=== PATIENT | male | born 1950 | race African-American/Black ===

== ENCOUNTER 2018-10-28 16:16 | Inpatient (IN) | payer MEDICARE ==
[~2018-10-28] VITALS: Ht 185.4 cm; Wt 91.3 kg
[2018-10-28 17:02] LABS: ALBUMIN 3.5 g/dL (3.4-5.0); CALCIUM 8.5 mg/dL (8.5-10.1); CREATININE 1.3 mg/dL (0.7-1.3); GFR 66.4; MAGNESIUM 2.2 mg/dL (1.8-2.4); POTASSIUM 4.2 mmol/L (3.5-5.1); TOTAL BILIRUBIN 0.2 mg/dL (0.2-1.0); TOTAL PROTEIN 7.1 g/dL (6.4-8.2)
[2018-10-28 17:15] LABS: BASO % 1 % (0-3); EOS # 0.3 x10^3/uL (0.0-0.7); EOS % 7 % (0-3); HEMATOCRIT 38.3 % (39.0-53.0); HEMOGLOBIN 13.2 g/dL (13.0-17.5); LYMPH # 1.4 x10^3/uL (1.0-4.8); LYMPH % 28 % (24-48); MEAN CORPUSCULAR HEMOGLOBIN 31 pg (25-35); MEAN CORPUSCULAR HGB CONC 35 g/dL (31-37); MEAN CORPUSCULAR VOLUME 91 fL (79-100); MONO # 0.5 x10^3/uL (0.0-1.1); MONO % 9 % (0-9); NEUT # 2.8 x10^3uL (1.8-7.7); NEUT % 56 % (31-73); PLATELET COUNT 255 x10^3/uL (140-400); RED BLOOD COUNT 4.21 x10^6/uL (4.30-5.70); RED CELL DISTRIBUTION WIDTH 12.9 % (11.5-14.5); WHITE BLOOD COUNT 5.1 x10^3/uL (4.0-11.0)
--- NOTE | 2018-10-28 17:29 | PHYS DOC ---
Past History Past Medical History: Anxiety, Dementia, Diabetes, Hypertension Past Surgical History: Other Alcohol Use: None Drug Use: None Adult General Chief Complaint Chief Complaint: PSYCH EVALUATION [facility] HPI Patient is a 68 year old male who brought in by his from his home for medical clearance for psychiatric admission. Patient has history of dementia and had progressive insomnia and behavioral problem and hallucination. Patient already accepted by psychiatric physician and needs medical clearance. Patient is alert and oriented 1 and cooperative without acute distress and denies any problem. Patient denies suicidal and homicidal ideation and hallucination. Review of Systems Review of Systems Constitutional: Denies fever or chills [] Eyes: Denies change in visual acuity, redness, or eye pain [] HENT: Denies nasal congestion or sore throat [] Respiratory: Denies cough or shortness of breath [] Cardiovascular: No additional information not addressed in HPI [] GI: Denies abdominal pain, nausea, vomiting, bloody stools or diarrhea [] : Denies dysuria or hematuria [] Musculoskeletal: Denies back pain or joint pain [] Integument: Denies rash or skin lesions [] Neurologic: Denies headache, focal weakness or sensory changes [] Endocrine: Denies polyuria or polydipsia [] All other systems were reviewed and found to be within normal limits, except as documented in this note. Allergies Allergies Allergies Coded Allergies Type Severity Reaction Last Updated Verified codeine Allergy Intermediate 10/28/18 Yes metformin Allergy Intermediate 10/28/18 Yes Physical Exam Physical Exam Constitutional: Well nourished, no acute distress, non-toxic appearance. [] HENT: Normocephalic, atraumatic. Eyes: PERRLA, EOMI, conjunctiva normal, no discharge. [] Neck: Normal range of motion, no tenderness, supple, no stridor. [] Cardiovascular:Heart rate regular rhythm, no murmur [] Lungs & Thorax: Bilateral breath sounds clear to auscultation [] Abdomen: Bowel sounds normal, soft, no tenderness, no masses, no pulsatile masses. [] Skin: Warm, dry, no erythema, no rash. [] Back: No tenderness, no CVA tenderness. [] Extremities: No tenderness, no cyanosis, no clubbing, ROM intact, no edema. [] Neurologic: Alert and oriented X 1, normal motor function, normal sensory function, no focal deficits noted. [] Psychologic: Affect normal, mood normal. [] Current Patient Data Vital Signs Vital Signs Date Time Temp Pulse Resp B/P (MAP) Pulse Ox O2 Delivery O2 Flow Rate FiO2 10/28/18 16:34 97.8 59 22 99 Room Air Lab Results Laboratory Tests Test 10/28/18 16:36 10/28/18 17:05 Sodium Level 144 mmol/L (136-145) Potassium Level 4.2 mmol/L (3.5-5.1) Chloride Level 106 mmol/L (98-107) Carbon Dioxide Level 33 mmol/L (21-32) H Anion Gap 5 (6-14) L Blood Urea Nitrogen 18 mg/dL (8-26) Creatinine 1.3 mg/dL (0.7-1.3) Estimated GFR (Cockcroft-Gault) 66.4 BUN/Creatinine Ratio 14 (6-20) Glucose Level 108 mg/dL (70-99) H Calcium Level 8.5 mg/dL (8.5-10.1) Magnesium Level 2.2 mg/dL (1.8-2.4) Total Bilirubin 0.2 mg/dL (0.2-1.0) Aspartate Amino Transferase (AST) 27 U/L (15-37) Alanine Aminotransferase (ALT) 28 U/L (16-63) Alkaline Phosphatase 88 U/L (46-116) Total Protein 7.1 g/dL (6.4-8.2) Albumin 3.5 g/dL (3.4-5.0) Albumin/Globulin Ratio 1.0 (1.0-1.7) White Blood Count 5.1 x10^3/uL (4.0-11.0) Red Blood Count 4.21 x10^6/uL (4.30-5.70) L Hemoglobin 13.2 g/dL (13.0-17.5) Hematocrit 38.3 % (39.0-53.0) L Mean Corpuscular Volume 91 fL (79-100) Mean Corpuscular Hemoglobin 31 pg (25-35) Mean Corpuscular Hemoglobin Concent 35 g/dL (31-37) Red Cell Distribution Width 12.9 % (11.5-14.5) Platelet Count 255 x10^3/uL (140-400) Neutrophils (%) (Auto) 56 % (31-73) Lymphocytes (%) (Auto) 28 % (24-48) Monocytes (%) (Auto) 9 % (0-9) Eosinophils (%) (Auto) 7 % (0-3) H Basophils (%) (Auto) 1 % (0-3) Neutrophils # (Auto) 2.8 x10^3uL (1.8-7.7) Lymphocytes # (Auto) 1.4 x10^3/uL (1.0-4.8) Monocytes # (Auto) 0.5 x10^3/uL (0.0-1.1) Eosinophils # (Auto) 0.3 x10^3/uL (0.0-0.7) Basophils # (Auto) 0.0 x10^3/uL (0.0-0.2) EKG EKG EKG interpreted by me. EKG at 1627 showed sinus bradycardia at rate of 53, left fourth axis, LVH, inverted T in lateral leads, poor R-wave progress in anteroseptal leads, no acute ST and T-wave abnormalities, Radiology/Procedures Radiology/Procedures [] Course & Med Decision Making Course & Med Decision Making Pertinent Labs reviewed. (See chart for details) Patient was medically cleared for psychiatric admission. Dragon Disclaimer Dragon Disclaimer This electronic medical record was generated, in whole or in part, using a voice recognition dictation system. Departure Departure: Impression: Primary Impression: Medical clearance for psychiatric admission Additional Impressions: Dementia Insomnia Behavioral problem Disposition: 09 ADMITTED INPATIENT (at 1725 to senior behavioral unit) Condition: STABLE Referrals: NON,STAFF (PCP) Problem Qualifiers ZHANG POWERS MD Oct 28, 2018 17:28
[2018-10-28 17:31] LABS: BILIRUBIN,URINE NEG (NEG); CLARITY,URINE CLEAR; COLOR,URINE YELLOW; GLUCOSE,URINE NEG (NEG)
[2018-10-28 17:32] LABS: BACTERIA,URINE 0 /HPF (0-FEW); NITRITE,URINE NEG (NEG); RBC,URINE 0 /HPF (0-2); SQUAMOUS EPITHELIAL CELL,UR OCC /LPF; UROBILINOGEN,URINE 0.2 mg/dL (0.2 mg/dL); WBC,URINE 0 /HPF (0-4)
[2018-10-28] MEDS ORDERED: amLODIPine BESYLATE 10 MG TABLET PO ONE (18:30)
[2018-10-28 18:36] VITALS: BP 226/99
[2018-10-28 18:38] VITALS: BP 242/107
[2018-10-28] MEDS ORDERED: ACETAMINOPHEN 325 MG TABLET PO PRN (19:45)
[2018-10-28] MEDS ORDERED: MAG HYDROX/AL HYDROX/SIMETH 30 ML ORAL.SUSP PO PRN (19:45)
[2018-10-28] MEDS ORDERED: MAGNESIUM HYDROXIDE 2,400 MG/30 ML ORAL.SUSP. PO PRN (19:45)
[2018-10-28] MEDS ORDERED: METHYL SALICYLATE/MENTHOL TOPICAL OINTMENT 29GM TUBE. TP PRN (19:45)
[2018-10-28] MEDS ORDERED: SERT100T PO (20:59)
[2018-10-28] MEDS ORDERED: OLAN2.5T11 PO (20:59)
[2018-10-28] MEDS ORDERED: [UNRECOGNIZED DRUG - CODE] PO (20:59)
[2018-10-28] MEDS ORDERED: MEMA10TA PO (20:59)
[2018-10-28] MEDS ORDERED: ASPI-630 PO (20:59)
[2018-10-28] MEDS ORDERED: GLIM1TAB2 PO (20:59)
[2018-10-28] MEDS ORDERED: DOCU100C28 PO (20:59)
[2018-10-28] MEDS ORDERED: TRIA15CR50 TP (20:59)
[2018-10-28] MEDS ORDERED: LOSA100T2 PO (20:59)
[2018-10-28] MEDS ORDERED: MELA3TAB2 PO (20:59)
[2018-10-28] MEDS ORDERED: MELATONIN 3 MG TABLET PO SCH (21:30)
[2018-10-28] MEDS ORDERED: TRIAMCINOLONE ACETONIDE 0.1% TOPICAL CREAM 15GM TUBE. TP SCH (21:30)
[2018-10-28] MEDS ORDERED: DOCUSATE SODIUM 100 MG CAPSULE PO SCH (21:30)
[2018-10-28] MEDS ORDERED: MEMANTINE 10 MG TABLET. PO SCH (21:30)
[2018-10-28] MEDS ORDERED: OLANZapine 2.5 MG TABLET PO SCH (21:30)
--- NOTE | 2018-10-28 23:00 | PDOC ---
Exam Note: Alvin Note: Please also refer to the separate dictated note~for this date of service dictated separately.~Patient seen individually. Discussed the patient with Nursing staff reviewed the chart.~Reviewed interim history and current functioning. Reviewed vital signs,~Labs/ Radiology~and current medications noted below. Continue current treatment with the changes noted in the dictated addendum note Assessment: Vital Signs: Vital Signs Date Time Temp Pulse Resp B/P (MAP) Pulse Ox O2 Delivery O2 Flow Rate FiO2 10/28/18 18:38 48 242/107 (152) 10/28/18 18:36 97.9 18 97 10/28/18 16:34 Room Air Labs: Laboratory Tests Test 10/28/18 16:36 10/28/18 17:05 Sodium Level 144 mmol/L (136-145) Potassium Level 4.2 mmol/L (3.5-5.1) Chloride Level 106 mmol/L (98-107) Carbon Dioxide Level 33 mmol/L (21-32) H Anion Gap 5 (6-14) L Blood Urea Nitrogen 18 mg/dL (8-26) Creatinine 1.3 mg/dL (0.7-1.3) Estimated GFR (Cockcroft-Gault) 66.4 BUN/Creatinine Ratio 14 (6-20) Glucose Level 108 mg/dL (70-99) H Calcium Level 8.5 mg/dL (8.5-10.1) Magnesium Level 2.2 mg/dL (1.8-2.4) Total Bilirubin 0.2 mg/dL (0.2-1.0) Aspartate Amino Transferase (AST) 27 U/L (15-37) Alanine Aminotransferase (ALT) 28 U/L (16-63) Alkaline Phosphatase 88 U/L (46-116) Total Protein 7.1 g/dL (6.4-8.2) Albumin 3.5 g/dL (3.4-5.0) Albumin/Globulin Ratio 1.0 (1.0-1.7) White Blood Count 5.1 x10^3/uL (4.0-11.0) Red Blood Count 4.21 x10^6/uL (4.30-5.70) L Hemoglobin 13.2 g/dL (13.0-17.5) Hematocrit 38.3 % (39.0-53.0) L Mean Corpuscular Volume 91 fL (79-100) Mean Corpuscular Hemoglobin 31 pg (25-35) Mean Corpuscular Hemoglobin Concent 35 g/dL (31-37) Red Cell Distribution Width 12.9 % (11.5-14.5) Platelet Count 255 x10^3/uL (140-400) Neutrophils (%) (Auto) 56 % (31-73) Lymphocytes (%) (Auto) 28 % (24-48) Monocytes (%) (Auto) 9 % (0-9) Eosinophils (%) (Auto) 7 % (0-3) H Basophils (%) (Auto) 1 % (0-3) Neutrophils # (Auto) 2.8 x10^3uL (1.8-7.7) Lymphocytes # (Auto) 1.4 x10^3/uL (1.0-4.8) Monocytes # (Auto) 0.5 x10^3/uL (0.0-1.1) Eosinophils # (Auto) 0.3 x10^3/uL (0.0-0.7) Basophils # (Auto) 0.0 x10^3/uL (0.0-0.2) Urine Collection Type Unknown Urine Color Yellow Urine Clarity Clear Urine pH 7.0 Urine Specific Clay 1.020 Urine Protein Neg (NEG-TRACE) Urine Glucose (UA) Neg mg/dL (NEG) Urine Ketones (Stick) Neg mg/dL (NEG) Urine Blood Neg (NEG) Urine Nitrite Neg (NEG) Urine Bilirubin Neg (NEG) Urine Urobilinogen Dipstick 0.2 mg/dL (0.2 mg/dL) Urine Leukocyte Esterase Neg (NEG) Urine RBC 0 /HPF (0-2) Urine WBC 0 /HPF (0-4) Urine Squamous Epithelial Cells Occ /LPF Urine Bacteria 0 /HPF (0-FEW) Current Medications: Meds: Current Medications Amlodipine Besylate (Norvasc) 10 mg 1X ONCE PO Last administered on 10/28/18at 18:30; Start 10/28/18 at 18:30; Stop 10/28/18 at 18:31; Status DC Acetaminophen (Tylenol) 650 mg PRN Q6HRS PRN PO PAIN / TEMP; Start 10/28/18 at 19:45; Stop 10/28/18 at 22:43; Status DC Multi-Ingredient Ointment (Analgesic [place]) 1 karey PRN QID PRN TP MUSCLE PAIN; Start 10/28/18 at 19:45; Stop 10/28/18 at 22:43; Status DC Al Hydroxide/Mg Hydroxide (Mylanta Plus Xs) 15 ml PRN AFTMEALHC PRN PO DYSPEPSIA; Start 10/28/18 at 19:45; Stop 10/28/18 at 22:43; Status DC Magnesium Hydroxide (Milk Of Magnesia) 2,400 mg PRN QHS PRN PO CONSTIPATION; Start 10/28/18 at 19:45; Stop 10/28/18 at 22:43; Status DC Aspirin (Children'S Aspirin) 81 mg DAILY PO ; Start 10/29/18 at 09:00; Stop at 09:00; Status DC Docusate Sodium (Colace) 100 mg BID PO ; Start 10/28/18 at 21:30; Stop 10/28/18 at 22:43; Status DC Glimepiride (Amaryl) 1 mg DAILY PO ; Start 10/29/18 at 09:00; Stop 10/29/18 at 09:00; Status DC Losartan Potassium (Cozaar) 100 mg DAILY PO ; Start 10/29/18 at 09:00; Stop at 09:00; Status DC Non-Formulary Medication (Pedi M.vit No.17 With Fluoride (Multivit-Fluor 0.5 Mg Tab Chw)) 0.5 mg DAILY PO ; Start 10/29/18 at 09:00; Stop 10/29/18 at 09:00; Status DC Triamcinolone Acetonide (Kenalog) 1 karey BID TP ; Start 10/28/18 at 21:30; Stop 10/28/18 at 22:43; Status DC Sertraline HCl (Zoloft) 100 mg DAILY PO ; Start 10/29/18 at 09:00; Stop at 09:00; Status DC Melatonin 9 mg QHS PO ; Start 10/28/18 at 21:30; Stop 10/28/18 at 22:43; Status DC Memantine (Namenda) 10 mg BID PO ; Start 10/28/18 at 21:30; Stop 10/28/18 at 22: 43; Status DC Olanzapine (ZyPREXA) 2.5 mg QHS PO ; Start 10/28/18 at 21:30; Stop 10/28/18 at 22:43; Status DC Active Scripts Active Reported Triamcinolone Acetonide 15 Gm Cream..g. 1 Karey TP BID Zoloft (Sertraline Hcl) 100 Mg Tablet 100 Mg PO DAILY Olanzapine 2.5 Mg Tablet 2.5 Mg PO QHS Multivit-Fluor 0.5 Mg Tab Chw (Pedi M.vit No.17 With Fluoride) 0.5 Mg Tab.chew 0.5 Mg PO DAILY Namenda (Memantine Hcl) 10 Mg Tablet 10 Mg PO BID Melatonin 3 Mg Tablet 9 Mg PO QHS Cozaar (Losartan Potassium) 100 Mg Tablet 100 Mg PO DAILY Glimepiride 1 Mg Tablet 1 Mg PO DAILY Docusate Sodium 100 Mg Capsule 100 Mg PO BID Aspirin 81 Mg Tab.chew 81 Mg PO DAILY I have reviewed the current psychotropics carefully including drug interactions. Risk benefit ratio favors no change other than as noted in my dictated progress note. ALISHA MICHAELS MD Oct 28, 2018 23:00
[2018-10-29] MEDS ORDERED: GLIMEPIRIDE 2 MG TABLET PO SCH (09:00)
[2018-10-29] MEDS ORDERED: [UNRECOGNIZED DRUG - MIXTURE] PO SCH (09:00)
[2018-10-29] MEDS ORDERED: ASPIRIN 81 MG TAB.CHEW PO SCH (09:00)
[2018-10-29] MEDS ORDERED: LOSARTAN 50 MG TABLET. PO SCH (09:00)
[2018-10-29] MEDS ORDERED: SERTRALINE 100 MG TABLET. PO SCH (09:00)
[2018-10-29 13:59] LABS: THYROID STIM HORMONE (TSH) 1.024 uIU/mL (0.358-3.740)
--- NOTE | 2018-10-29 15:57 | EKG ---
[address] [address] Test Date: 2018-10-28 Test Time: 16:27:26 Pat Name: LETY TINSLEY Department: Room: Gender: M [employer] Manager: KAYA : 1950 Requested By: ZHANG POWERS Order Number: [id number] Reading MD: Measurements Intervals Jelm Rate: 53 P: -26 TX: 170 QRS: -24 QRSD: 86 T: 115 QT: 436 QTc: 411 Interpretive Statements SINUS RHYTHM LEFTWARD AXIS R-S TRANSITION ZONE IN V LEADS DISPLACED TO THE LEFT CONSIDER LEFT VENTRICULAR HYPERTROPHY QRS(T) CONTOUR ABNORMALITY CONSIDER ANTEROSEPTAL MYOCARDIAL DAMAGE T ABNORMALITY IN ANTEROLATERAL LEADS ABNORMAL ECG RI6.01 No previous ECG available for comparison
[2018-10-29 17:14] LABS: THYROXINE 4.5 ug/dL (4.5-12.0)
[2018-10-29 19:09] LABS: HEMOGLOBIN A1C 6.6 % (4.8-5.6)
== END 2018-10-28 22:43 | disposition short-term general hospital (02) | DRG 57 ==
LOC: ER 16:16 → GEROPSY 18:10
PROVIDERS: ADMIT Psychiatry & Neurology Psychiatry; ATTEND Psychiatry & Neurology Psychiatry
DX: G31.09 Other frontotemporal neurocognitive disorder (principal); F02.81 Dementia in other diseases classified elsewhere, unspecified severity, with behavioral disturbance; G47.00 Insomnia, unspecified; E11.9 Type 2 diabetes mellitus without complications; I10 Essential (primary) hypertension; F32.9 Major depressive disorder, single episode, unspecified; F41.9 Anxiety disorder, unspecified; F63.9 Impulse disorder, unspecified
CPT/HCPCS: 36415; 80053; 80061; 81001; 82306; 83036; 83540; 83550; 83735; 84436; 84443; 84480; 85025; 86592; 93005; 99285-25

== ENCOUNTER 2018-10-28 23:20 | Inpatient (IN) | payer MEDICARE ==
[2018-10-27 20:20] VITALS: BP 171/97
[~2018-10-28] VITALS: Ht 185.4 cm; Wt 86.2 kg
[2018-10-28 23:20] VITALS: BP 177/82
[~2018-10-28 23:20] MED LIST: ASPI-630 PO; DOCU100C28 PO; GLIM1TAB2 PO; LOSA100T2 PO; MELA3TAB2 PO; MEMA10TA PO; OLAN2.5T11 PO; SERT100T PO; TRIA15CR50 TP; [UNRECOGNIZED DRUG - CODE] PO
[2018-10-28 23:35] VITALS: BP 192/133
[2018-10-28 23:50] VITALS: BP 185/88
[2018-10-29] VITALS (26 sets, daily range): BP systolic 122–188; BP diastolic 60–97
[2018-10-29] MEDS ORDERED: METHYL SALICYLATE/MENTHOL TOPICAL OINTMENT 29GM TUBE. TP PRN (00:15)
[2018-10-29] MEDS ORDERED: MELATONIN 3 MG TABLET PO PRN (00:15)
[2018-10-29] MEDS ORDERED: ACETAMINOPHEN 325 MG TABLET PO PRN (00:15)
[2018-10-29] MEDS ORDERED: MAG HYDROX/AL HYDROX/SIMETH 30 ML ORAL.SUSP PO PRN (00:15)
[2018-10-29] MEDS ORDERED: MAGNESIUM HYDROXIDE 2,400 MG/30 ML ORAL.SUSP. PO PRN (00:15)
[2018-10-29] MEDS: OLANZapine 2.5 MG TABLET PO SCH ×2 (00:46→20:36)
[2018-10-29] MEDS: MEMANTINE 10 MG TABLET. PO SCH ×3 (00:50→20:36)
[2018-10-29 06:26] LABS: BASO # 0.1 x10^3/uL (0.0-0.2); BASO % 1 % (0-3); EOS # 0.2 x10^3/uL (0.0-0.7); EOS % 4 % (0-3); HEMATOCRIT 39.8 % (39.0-53.0); HEMOGLOBIN 13.5 g/dL (13.0-17.5); LYMPH # 1.3 x10^3/uL (1.0-4.8); LYMPH % 21 % (24-48); MEAN CORPUSCULAR HEMOGLOBIN 31 pg (25-35); MEAN CORPUSCULAR HGB CONC 34 g/dL (31-37); MEAN CORPUSCULAR VOLUME 90 fL (79-100); MONO # 0.5 x10^3/uL (0.0-1.1); MONO % 8 % (0-9); NEUT # 4.3 x10^3uL (1.8-7.7); NEUT % 66 % (31-73); PLATELET COUNT 267 x10^3/uL (140-400); RED CELL DISTRIBUTION WIDTH 12.9 % (11.5-14.5); WHITE BLOOD COUNT 6.5 x10^3/uL (4.0-11.0)
[2018-10-29 06:34] LABS: ALBUMIN 3.7 g/dL (3.4-5.0); CREATININE 1.2 mg/dL (0.7-1.3); GFR 72.9; MAGNESIUM 2.1 mg/dL (1.8-2.4); POTASSIUM 3.9 mmol/L (3.5-5.1); TOTAL BILIRUBIN 0.4 mg/dL (0.2-1.0); TOTAL PROTEIN 7.5 g/dL (6.4-8.2)
[2018-10-29] MEDS ORDERED: hydrALAZINE 20 MG/ML VIAL. IV PRN (09:30)
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
[2018-10-29] MEDS: ASPIRIN 81 MG TAB.CHEW PO SCH (09:57)
[2018-10-29] MEDS: SERTRALINE 100 MG TABLET. PO SCH (09:57)
[2018-10-29] MEDS: DOCUSATE SODIUM 100 MG CAPSULE PO SCH ×2 (09:57→20:35)
[2018-10-29] MEDS: GLIMEPIRIDE 2 MG TABLET PO SCH (09:57)
[2018-10-29] MEDS: LOSARTAN 50 MG TABLET. PO SCH (09:57)
[2018-10-29] MEDS: TRIAMCINOLONE ACETONIDE 0.1% TOPICAL CREAM 15GM TUBE. TP SCH ×2 (09:58→20:36)
--- NOTE | 2018-10-29 11:04 | RAD ---
CT HEAD WO CONTRAST History: Mental status change Comparison: None. Technique: Noncontrast CT imaging was performed of the head. Exposure: One or more of the following individualized dose reduction techniques were utilized for this examination: 1. Automated exposure control 2. Adjustment of the mA and/or kV according to patient size 3. Use of iterative reconstruction technique. Findings: There is some motion. No acute extra-axial or parenchymal hemorrhage is identified. There is no significant intra-axial mass effect, midline shift, or extra-axial fluid collection. The portillo-white differentiation of the major vascular territories is preserved. Ventricular size is within normal limits. Cerebral volume can be considered within normal limits. There is [id number] patchy ill-defined low-density of the supratentorial parenchyma bilaterally. The mastoid air cells and the visualized paranasal sinuses are aerated. No acute calvarial abnormality is identified. Impression: 1. No acute intracranial abnormality is identified. Patchy ill-defined low-density of the supratentorial parenchyma bilaterally is nonspecific, may be due to chronic microvascular ischemic disease. Electronically signed by: Dre Mart MD (10/29/2018 10:59 AM) [id number]
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
[2018-10-29] MEDS ORDERED: ADENOSINE 6 MG/2 ML VIAL IV ONE (12:12)
--- NOTE | 2018-10-29 12:35 | RAD ---
Chest, 2 views, 10/29/2018: HISTORY: Hypertension The heart size is normal. No pulmonary infiltrate is seen. There is no evidence of pleural fluid. Moderate hypertrophic spurring is present in the spine. IMPRESSION: No acute cardiopulmonary abnormality is detected. Electronically signed by: Guille Zamorano MD (10/29/2018 12:30 PM) [facility]
--- NOTE | 2018-10-29 18:30 | PDOC ---
Exam Note: Alvin Note: Please also refer to the separate dictated note~for this date of service dictated separately.~Patient seen individually. Discussed the patient with Nursing staff reviewed the chart.~Reviewed interim history and current functioning. Reviewed vital signs,~Labs/ Radiology~and current medications noted below. Continue current treatment with the changes noted in the dictated addendum note Assessment: Vital Signs: Vital Signs Date Time Temp Pulse Resp B/P (MAP) Pulse Ox O2 Delivery O2 Flow Rate FiO2 10/29/18 15:47 55 14 132/76 (94) 98 Room Air 10/29/18 06:05 97.0 I&O Intake and Output 10/29/18 07:01 Intake Total 200 ml Output Total 1200 ml Balance -1000 ml Intake Oral 200 ml Output Urine Total 1200 ml Labs: Laboratory Tests Test 10/29/18 00:30 10/29/18 05:45 10/29/18 10:31 10/29/18 11:31 Nasal Screen MRSA (PCR) Negative (Negative) White Blood Count 6.5 x10^3/uL (4.0-11.0) Red Blood Count 4.40 x10^6/uL (4.30-5.70) Hemoglobin 13.5 g/dL (13.0-17.5) Hematocrit 39.8 % (39.0-53.0) Mean Corpuscular Volume 90 fL (79-100) Mean Corpuscular Hemoglobin 31 pg (25-35) Mean Corpuscular Hemoglobin Concent 34 g/dL (31-37) Red Cell Distribution Width 12.9 % (11.5-14.5) Platelet Count 267 x10^3/uL (140-400) Neutrophils (%) (Auto) 66 % (31-73) Lymphocytes (%) (Auto) 21 % (24-48) L Monocytes (%) (Auto) 8 % (0-9) Eosinophils (%) (Auto) 4 % (0-3) H Basophils (%) (Auto) 1 % (0-3) Neutrophils # (Auto) 4.3 x10^3uL (1.8-7.7) Lymphocytes # (Auto) 1.3 x10^3/uL (1.0-4.8) Monocytes # (Auto) 0.5 x10^3/uL (0.0-1.1) Eosinophils # (Auto) 0.2 x10^3/uL (0.0-0.7) Basophils # (Auto) 0.1 x10^3/uL (0.0-0.2) Sodium Level 144 mmol/L (136-145) Potassium Level 3.9 mmol/L (3.5-5.1) Chloride Level 105 mmol/L (98-107) Carbon Dioxide Level 31 mmol/L (21-32) Anion Gap 8 (6-14) Blood Urea Nitrogen 14 mg/dL (8-26) Creatinine 1.2 mg/dL (0.7-1.3) Estimated GFR (Cockcroft-Gault) 72.9 BUN/Creatinine Ratio 12 (6-20) Glucose Level 105 mg/dL (70-99) H Calcium Level 9.0 mg/dL (8.5-10.1) Magnesium Level 2.1 mg/dL (1.8-2.4) Total Bilirubin 0.4 mg/dL (0.2-1.0) # Aspartate Amino Transferase (AST) 30 U/L (15-37) Alanine Aminotransferase (ALT) 32 U/L (16-63) Alkaline Phosphatase 74 U/L (46-116) Total Protein 7.5 g/dL (6.4-8.2) Albumin 3.7 g/dL (3.4-5.0) Albumin/Globulin Ratio 1.0 (1.0-1.7) D-Dimer (Tita) 0.44 mg/L (0.00-0.50) Vitamin B12 Level 632 pg/mL (232-1245) Current Medications: Meds: Current Medications Nicardipine HCl 50 mg/Sodium Chloride 270 ml @ 27 mls/hr CONT PRN IV SEE I/O RECORD Last administered on 10/29/18at 00:27; Start 10/29/18 at 00:00; Stop 10/29 at 15:54; Status DC Acetaminophen (Tylenol) 650 mg PRN Q6HRS PRN PO PAIN / TEMP; Start 10/29/18 at 00:15 Aspirin (Children'S Aspirin) 81 mg DAILYWBKFT PO Last administered on at 09:57; Start 10/29/18 at 08:00 Docusate Sodium (Colace) 100 mg BID PO Last administered on 10/29/18 09:57; Start 10/29/18 at 09:00 Glimepiride (Amaryl) 1 mg DAILY PO Last administered on 10/29/18 09:57; Start 10/29/18 at 09:00 Losartan Potassium (Cozaar) 100 mg DAILY PO Last administered on 10/29/18 09: 57; Start 10/29/18 at 09:00 Al Hydroxide/Mg Hydroxide (Mylanta Plus Xs) 30 ml PRN AFTMEALHC PRN PO DYSPEPSIA; Start 10/29/18 at 00:15 Magnesium Hydroxide (Milk Of Magnesia) 2,400 mg PRN QHS PRN PO CONSTIPATION; Start 10/29/18 at 00:15 Melatonin 3 mg PRN QHS PRN PO INSOMNIA Last administered on 10/29/18 00:46; Start 10/29/18 at 00:15; Stop 10/29/18 at 10:14; Status DC Memantine (Namenda) 10 mg BID PO Last administered on 10/29/18 09:57; Start at 00:30 Multi-Ingredient Ointment (Analgesic [place]) 1 karey PRN QID PRN TP MUSCLE PAIN; Start 10/29/18 at 00:15 Olanzapine (ZyPREXA) 2.5 mg HS PO Last administered on 10/29/18 00:46; Start 10/29/18 at 00:30 Sertraline HCl (Zoloft) 100 mg DAILY PO Last administered on 10/29/18 09:57; Start 10/29/18 at 09:00 Triamcinolone Acetonide (Kenalog) 1 karey BID TP Last administered on 10/29/18 09:58; Start 10/29/18 at 09:00 Nicardipine HCl (Cardene) 25 mg STK-MED ONCE IV ; Start 10/29/18 at 00:14; Stop 10/29/18 at 00:16; Status DC Hydralazine HCl (Apresoline) 10 mg PRN Q4HRS PRN IV ELEVATED BP, SEE COMMENTS; Start 10/29/18 at 09:30 Sertraline HCl (Zoloft) 100 mg DAILY PO ; Start 10/30/18 at 09:00; Status UNV Aspirin (Children'S Aspirin) 81 mg DAILYWBKFT PO ; Start 10/30/18 at 08:00; Status Cancel Non-Formulary Medication (Docusate Sodium ) 100 mg BID PO ; Start 10/29/18 at 21 :00; Status UNV Non-Formulary Medication (Glimepiride ) 1 mg DAILY PO ; Start 10/30/18 at 09:00 ; Status UNV Non-Formulary Medication (Losartan Potassium (Cozaar)) 100 mg DAILY PO ; Start 10/30/18 at 09:00; Status UNV Melatonin 9 mg QHS PO ; Start 10/29/18 at 21:00 Non-Formulary Medication (Memantine Hcl (Namenda)) 10 mg BID PO ; Start at 21:00; Status UNV Non-Formulary Medication (Olanzapine ) 2.5 mg QHS PO ; Start 10/29/18 at 21:00; Status UNV Multivitamins/ Calcium (Thera-M Plus) 1 tab DAILY PO ; Start 10/30/18 at 09:00 Non-Formulary Medication (Triamcinolone Acetonide ) 1 karey BID TP ; Start at 21:00; Status UNV Adenosine (Adenocard) 6 mg STK-MED ONCE IV ; Start 10/29/18 at 12:12; Stop 10/29 at 12:21; Status DC Active Scripts Active Reported Triamcinolone Acetonide 15 Gm Cream..g. 1 Karey TP BID Zoloft (Sertraline Hcl) 100 Mg Tablet 100 Mg PO DAILY Olanzapine 2.5 Mg Tablet 2.5 Mg PO QHS Multivit-Fluor 0.5 Mg Tab Chw (Pedi M.vit No.17 With Fluoride) 0.5 Mg Tab.chew 0.5 Mg PO DAILY Namenda (Memantine Hcl) 10 Mg Tablet 10 Mg PO BID Melatonin 3 Mg Tablet 9 Mg PO QHS Cozaar (Losartan Potassium) 100 Mg Tablet 100 Mg PO DAILY Glimepiride 1 Mg Tablet 1 Mg PO DAILY Docusate Sodium 100 Mg Capsule 100 Mg PO BID Aspirin 81 Mg Tab.chew 81 Mg PO DAILY I have reviewed the current psychotropics carefully including drug interactions. Risk benefit ratio favors no change other than as noted in my dictated progress note. Diagnosis: Problems: (1) Anxiety disorder (2) Frontotemporal dementia with behavioral disturbance (3) Impulse control disorder ALISHA MICHAELS MD Oct 29, 2018 18:30
--- NOTE | 2018-10-29 18:55 | HP ---
ADMIT DATE: 10/28/2018 PSYCHIATRIC ADMISSION HISTORY AND DISCHARGE SUMMARY I never had a chance to see the patient since he arrived from the Emergency Room and was on the unit approximately 1 hour, was found to be extremely hypertensive and transferred to the ICU per Dr. Mejia. IDENTIFYING DATA: The patient is a 68-year-old male referred to us from the [facility]. Dr. Hicks who called himself with this referral. HISTORY OF PRESENT ILLNESS: Reportedly, the patient has frontotemporal dementia, type 2 diabetes mellitus, hypertension, hyperlipidemia, and gout. He had been increasingly agitated, having active hallucinations, seeing people that were not there, wandering, confused, unable to focus and concentrate, paranoid, and anxious. Behaviors were deemed dangerous, unmanageable, had failed outpatient treatment with Dr. Hicks and we agreed to accept him on the [facility] for stabilization of his frontotemporal dementia with delusion, behavioral disturbance, and depression. He presented to the ER, was somewhat hypertensive, but then they stabilized the blood pressures, sent him up to us and soon thereafter blood pressure was elevated again and then he was transferred to the ICU. I never did get to see the patient as I indicated initially and I am not able to dictate a detailed mental status exam for this admission. Final diagnoses from the history presented by Dr. Hicks, the patient has a history of major neurocognitive disorder, frontotemporal with delusion, depression, behavioral disturbance; anxiety disorder, unspecified; impulse control disorder, unspecified; hypertension. Rest of the medical history can be gleaned from the notes by Dr. Mejia in the ICU. DISPOSITION: The patient was transferred to the ICU. MAN Kesha MICHAELS MD DR: MARIA GUADALUPE/steven JOB#: [id number] / [id number]
[2018-10-29] MEDS: hydrALAZINE 10 MG TABLET PO PRN (20:45)
[2018-10-29] MEDS ORDERED: MEMANTINE HCL 10 MG PO SCH (21:00)
[2018-10-29] MEDS ORDERED: DOCUSATE SODIUM 100 MG PO SCH (21:00)
[2018-10-29] MEDS ORDERED: TRIAMCINOLONE ACETONIDE TP SCH (21:00)
[2018-10-29] MEDS ORDERED: OLANZAPINE 2.5 MG PO SCH (21:00)
[2018-10-29] MEDS ORDERED: MELATONIN 3 MG TABLET PO SCH (21:00)
[2018-10-30 01:38] LABS: BACTERIA,URINE FEW /HPF (0-FEW); BILIRUBIN,URINE NEG (NEG); CLARITY,URINE CLEAR; COLOR,URINE YELLOW; GLUCOSE,URINE NEG (NEG); NITRITE,URINE NEG (NEG); RBC,URINE 0 /HPF (0-2); SQUAMOUS EPITHELIAL CELL,UR OCC /LPF; UROBILINOGEN,URINE 0.2 mg/dL (0.2 mg/dL); WBC,URINE OCC /HPF (0-4)
[2018-10-30 05:40] VITALS: BP 160/80
[2018-10-30] MEDS: hydrALAZINE 10 MG TABLET PO PRN ×2 (05:42→15:56)
[2018-10-30 06:42] LABS: BASO # 0.1 x10^3/uL (0.0-0.2); BASO % 1 % (0-3); EOS # 0.3 x10^3/uL (0.0-0.7); EOS % 7 % (0-3); HEMATOCRIT 40.8 % (39.0-53.0); HEMOGLOBIN 13.9 g/dL (13.0-17.5); LYMPH # 1.5 x10^3/uL (1.0-4.8); LYMPH % 36 % (24-48); MEAN CORPUSCULAR HEMOGLOBIN 31 pg (25-35); MEAN CORPUSCULAR HGB CONC 34 g/dL (31-37); MEAN CORPUSCULAR VOLUME 91 fL (79-100); MONO # 0.5 x10^3/uL (0.0-1.1); MONO % 11 % (0-9); NEUT # 1.9 x10^3uL (1.8-7.7); NEUT % 44 % (31-73); PLATELET COUNT 250 x10^3/uL (140-400); WHITE BLOOD COUNT 4.3 x10^3/uL (4.0-11.0)
[2018-10-30 08:00] VITALS: BP 150/84
[2018-10-30] MEDS ORDERED: ASPIRIN 81 MG TAB.CHEW PO SCH (08:00)
[2018-10-30] MEDS ORDERED: GLIMEPIRIDE 1 MG PO SCH (09:00)
[2018-10-30] MEDS ORDERED: MULTIVITAMIN with MINERAL TABLET. PO SCH (09:00)
[2018-10-30] MEDS ORDERED: SERTRALINE 100 MG TABLET. PO SCH (09:00)
[2018-10-30] MEDS ORDERED: NON FORMULARY ITEM (Losartan Potassium (Cozaar) 100 MG) PO SCH (09:00)
[2018-10-30] MEDS: LOSARTAN 50 MG TABLET. PO SCH (09:39)
[2018-10-30] MEDS: TRIAMCINOLONE ACETONIDE 0.1% TOPICAL CREAM 15GM TUBE. TP SCH (09:40)
[2018-10-30] MEDS: SERTRALINE 100 MG TABLET. PO SCH (09:40)
[2018-10-30] MEDS: MEMANTINE 10 MG TABLET. PO SCH (09:40)
[2018-10-30] MEDS: ASPIRIN 81 MG TAB.CHEW PO SCH (09:40)
[2018-10-30] MEDS: DOCUSATE SODIUM 100 MG CAPSULE PO SCH (09:40)
[2018-10-30] MEDS: GLIMEPIRIDE 2 MG TABLET PO SCH (09:40)
[2018-10-30] MEDS ORDERED: HYDR-2867 PO (10:47)
--- NOTE | 2018-10-30 12:59 | DS ---
DATE OF DISCHARGE: 10/30/2018 HOSPITAL COURSE: The patient is a 68-year-old -Citizen Of [place] gentleman came in, was going to be admitted to the [facility], but apparently his blood pressure was about 240/110. He was taken down here to the ICU in hypertensive urgency. The patient placed on various antihypertensives and IV hydralazine. The patient made excellent progress. He was seen by studio operations engineer in charge, cleared by Cardiology and his blood pressure came down into the range of approximately 150/84, respiratory rate 18, pulse 50. He is afebrile. The patient is alert, at times has agitation. The patient otherwise made good progress during the rest of his hospitalization. No complication. DIET: He will be on a heart healthy diet. ACTIVITY: Decreased activity. MEDICATIONS: MRAD. DISPOSITION: Transferred to the [facility]. IMPRESSION: Hypertensive urgency, dementia, Alzheimer type, severe depression, agitation, bradycardia, chronic microvascular disease. The patient will be in [facility] for further rehabilitation and evaluation by those physicians. MARY ELLEN CHIU MD DR: MOHAN/steven JOB#: [id number] / [id number]
[2018-10-30 15:56] VITALS: BP 177/89
[2018-10-30] MEDS ORDERED: MAG355OR12 PO (18:02)
[2018-10-30] MEDS ORDERED: MAGN2400 PO (18:02)
[2018-10-30] MEDS ORDERED: ACET325T9 PO (18:02)
[2018-10-30] MEDS ORDERED: MENT113G6 TP (18:02)
[2018-10-30] MEDS ORDERED: MULT-460 PO (18:02)
--- NOTE | 2018-10-30 22:15 | PN ---
DATE: SUBJECTIVE: The patient is resting fairly comfortably. The patient has been moved out of the ICU for his hypertensive urgency. PHYSICAL EXAMINATION: VITAL SIGNS: His blood pressure 150/80, respiratory rate 18, pulse anywhere from 45-51, patient is afebrile. GENERAL: The patient is alert. LUNGS: Diminished, but clear. CARDIOVASCULAR: Regular sinus rhythm. ABDOMEN: Soft, nontender. The patient otherwise his labs are basically stable and continued to be monitored and adjusted on his medications, possible placement in the [facility] unit for his dementia, Alzheimer type. MARY ELLEN CHIU MD DR: MOHAN/steven JOB#: [id number] / [id number]
--- NOTE | 2018-10-31 03:02 | CONS ---
DATE OF CONSULTATION: 10/29/2018 PSYCHIATRIC CONSULTATION This late entry of 10/29/2018 covers elements not covered in my initial note of 10/29/2018. I met with the patient in the evening of 10/29/2018 on [facility], previously discussed with nursing staff several times as the patient was initially referred to us to the [facility] after Dr. Hicks, his primary care physician from [facility] called us himself requesting psychiatric hospitalization for his frontotemporal dementia with delusions, behavioral disturbance. He has been wandering, confused, unmanageable at home. He presented to the ER, was found to be somewhat hypertensive, but stabilized, came to the [facility] and very shortly thereafter was transferred to [facility] for medical stabilization on the medical/surgical floor as his blood pressure had elevated once again. He is now on the medical/surgical floor, [facility], room #125 and I have been asked to consult from a psychiatric standpoint to manage his ongoing marked impulsivity, confusion, agitation and attempting to walk away from the unit, oblivious of where he is. Discussed with nursing staff, reviewed the chart. CHIEF COMPLAINT: "I will see you later." The patient had his bags packed. He was walking out of his room. His nursing staff were trying to contain him. He is quite oblivious of his circumstances. HISTORY OF PRESENT ILLNESS: The patient has a history of frontotemporal dementia and has been living at home with family, followed at the [facility]. He has had marked insomnia, increased agitation, hallucination, seeing people that are not there, wandering, poor concentration, paranoia and anxiety. Symptoms have been worsening for about 2 months. He has been difficult to redirect. Psychotropics had been adjusted by Dr. Hicks with the increase of sertraline, addition of olanzapine and he had failed all of this. PAST PSYCHIATRIC HISTORY: No history of bipolar disorder. PAST MEDICAL HISTORY: Hypertension, frontotemporal dementia, type 2 diabetes mellitus, hyperlipidemia, and gout. ALLERGIES: CODEINE, METFORMIN. FAMILY HISTORY: Noncontributory. CURRENT PSYCHOTROPICS: Melatonin 10 mg at bedtime, Namenda 10 b.i.d., Zyprexa 2.5 mg at bedtime, and Zoloft 100 mg a day. SOCIAL HISTORY: No alcohol or drug abuse history is noted. Not known to be a perpetrator. MENTAL STATUS EXAMINATION: The patient was seen individually evening of 10/29/2018 in room #125, [facility]. He is oriented to himself, pleasant, smiling, but has his bags packed, ready to walk out of the unit, oblivious of his surroundings. Insight, judgment, recent and remote memory, attention, concentration, fund of knowledge poor, consistent with his diagnosis. IMPRESSION: Major neurocognitive disorder, frontotemporal with delusion, depression, behavioral disturbance; anxiety disorder, unspecified; impulse control disorder, unspecified; hypertension. Rest unchanged from initial note. PLAN: From a psychiatric standpoint, we will maintain his current psychotropics and once he is medically stable, we will transfer him to the [facility]. Dr. Vyas/Dr. Mejia, thank you for the opportunity to participate in your patient's care. We will follow with you. MAN Kesha MICHAELS MD DR: MARIA GUADALUPE/nts JOB#: [id number] / [id number]
== END 2018-10-30 16:00 | DRG 305 ==
LOC: ICU 23:20 → 1 SOUTH 10-29 15:47
PROVIDERS: ADMIT Internal Medicine; ATTEND Internal Medicine
DX: I16.0 Hypertensive urgency (principal); F02.81 Dementia in other diseases classified elsewhere, unspecified severity, with behavioral disturbance; F01.51 Vascular dementia, unspecified severity, with behavioral disturbance; F63.9 Impulse disorder, unspecified; F32.9 Major depressive disorder, single episode, unspecified; E78.00 Pure hypercholesterolemia, unspecified; E11.9 Type 2 diabetes mellitus without complications; E78.5 Hyperlipidemia, unspecified; F41.9 Anxiety disorder, unspecified; G31.09 Other frontotemporal neurocognitive disorder; I10 Essential (primary) hypertension; M10.9 Gout, unspecified; Z66 Do not resuscitate; Z79.899 Other long term (current) drug therapy
CPT/HCPCS: 36415; 70450; 71046; 80053; 81001; 82607; 83735; 85025; 85379; 87641; J7050

== ENCOUNTER 2018-10-30 13:00 | Inpatient (IN) | payer MEDICARE ==
[~2018-10-30] VITALS: Ht 185.4 cm; Wt 90.9 kg
[~2018-10-30 13:00] MED LIST changes: +HYDR-2867 PO
[2018-10-30 16:56] VITALS: BP 179/95
[2018-10-30] MEDS ORDERED: ACETAMINOPHEN 325 MG TABLET PO PRN (18:00)
[2018-10-30] MEDS ORDERED: MAG HYDROX/AL HYDROX/SIMETH 30 ML ORAL.SUSP PO PRN (18:00)
[2018-10-30] MEDS ORDERED: MAG355OR12 PO (18:02)
[2018-10-30] MEDS ORDERED: MAGN2400 PO (18:02)
[2018-10-30] MEDS ORDERED: ACET325T9 PO (18:02)
[2018-10-30] MEDS ORDERED: MENT113G6 TP (18:02)
[2018-10-30] MEDS ORDERED: MULT-460 PO (18:02)
[2018-10-30] MEDS ORDERED: METHYL SALICYLATE/MENTHOL TOPICAL OINTMENT 29GM TUBE. TP PRN (18:45)
[2018-10-30] MEDS ORDERED: MAGNESIUM HYDROXIDE 2,400 MG/30 ML ORAL.SUSP. PO PRN (18:45)
[2018-10-30] MEDS: OLANZapine 2.5 MG TABLET PO SCH (20:03)
[2018-10-30] MEDS: DOCUSATE SODIUM 100 MG CAPSULE PO SCH (20:03)
[2018-10-30] MEDS: MEMANTINE 10 MG TABLET. PO SCH (20:03)
[2018-10-30] MEDS: MELATONIN 3 MG TABLET PO SCH (20:04)
--- NOTE | 2018-10-30 20:30 | HP ---
ADMIT DATE: 10/30/2018 This note covers elements not covered in my initial note of 10/30/2018. IDENTIFYING DATA: The patient is a 68-year-old -[place]aced[place] male who is admitted back to us from [address] [place] [address] medical surgical floor at [facility] after he was medically stabilized for his hypertension. He was transferred to [address] [place] [address] from our unit after he presented from the ER on the referral directly from Dr. Hicks, his primary care physician at the [facility]. Dr. Hicks had called us and on account of the patient's worsening mood lability, confusion secondary to frontotemporal dementia. He is unmanageable at the home. CHIEF COMPLAINT: "It's nice to see you again." The patient is pleasant, smiling, oblivious of who I was, but attempting to communicate as if he knew me well. I have seen him previously and he was briefly on the unit 2 days ago in the evening, but had to be transferred to the medical surgical floor for his hypertension. HISTORY OF PRESENT ILLNESS: The patient has a history of frontotemporal dementia with delusion, depression, behavioral disturbance. He has been at home. Behaviors have been unmanageable. He has had marked insomnia with worsening agitation, hallucinations, seeing people that are not there, wandering, confused, decreased concentration, paranoia and anxiety. No symptoms of bipolar disorder. PAST PSYCHIATRIC HISTORY: As above. CODE STATUS: DNR. ALLERGIES: CODEINE, METFORMIN. Accu-Cheks daily. Diet: Regular, ambulates ad orin. PAST MEDICAL HISTORY: Diabetes mellitus, hypertension, and hyperlipidemia, gout. CURRENT PSYCHOTROPICS: Melatonin 10 mg at bedtime, Namenda 10 b.i.d., Zyprexa 2.5 at bedtime, Zoloft 100 mg a day and we have gone ahead and added Zyprexa 2.5 mg q. 2 hours p.r.n. psychosis, agitation, max 10 mg in 24 hours. FAMILY HISTORY: Noncontributory. SOCIAL HISTORY: No history of alcohol, drug abuse, physical, sexual or elder abuse. Not known to be a perpetrator. REACTION TO HOSPITALIZATION: The patient oblivious of this. ASSETS: Supportive family. MENTAL STATUS EXAMINATION: The patient was seen individually evening of 10/30/2018. He is oriented to himself. Insight, judgment, recent and remote memory, attention, concentration, fund of knowledge poor, consistent with his diagnosis. IMPRESSION: Major neurocognitive disorder, frontotemporal with delusion, depression, behavioral disturbance; anxiety disorder, unspecified; impulse control disorder, unspecified; hypertension. Rest unchanged from above. PLAN: Admit to Geropsychiatry Unit at [facility]. I will see the patient daily individually from a psychiatric standpoint, medical followup with Dr. Vyas. Continue the patient on his current psychotropics. Consider adding Depakote as a mood stabilizer. We will monitor sleep. Add Remeron if needed for insomnia and that might help with anxiety, agitation as well. MAN Kesha MICHAELS MD DR: MARIA GUADALUPE/nts JOB#: [id number] / [id number]
[2018-10-30] MEDS: TRIAMCINOLONE ACETONIDE 0.1% TOPICAL CREAM 15GM TUBE. TP SCH (21:00)
--- NOTE | 2018-10-30 22:18 | PDOC ---
Exam Note: Alvin Note: Please also refer to the separate dictated note~for this date of service dictated separately.~Patient seen individually. Discussed the patient with Nursing staff reviewed the chart.~Reviewed interim history and current functioning. Reviewed vital signs,~Labs/ Radiology~and current medications noted below. Continue current treatment with the changes noted in the dictated addendum note Assessment: Vital Signs: Vital Signs Date Time Temp Pulse Resp B/P (MAP) Pulse Ox O2 Delivery O2 Flow Rate FiO2 10/30/18 16:56 98.2 63 20 179/95 (123) 97 Current Medications: Meds: Current Medications Olanzapine (ZyPREXA ZYDIS) 2.5 mg PRN Q2HR PRN PO PSYCHOSIS Last administered on 10/30/18at 17:48; Start 10/30/18 at 17:45 Acetaminophen (Tylenol) 650 mg PRN Q4HRS PRN PO PAIN / TEMP; Start 10/30/18 at 18:00 Al Hydroxide/Mg Hydroxide (Mylanta Plus Xs) 15 ml PRN AFTMEALHC PRN PO DYSPEPSIA; Start 10/30/18 at 18:00 Sertraline HCl (Zoloft) 100 mg DAILY PO ; Start 10/31/18 at 09:00 Aspirin (Children'S Aspirin) 81 mg DAILYWBKFT PO ; Start 10/31/18 at 08:00 Docusate Sodium (Colace) 100 mg BID PO Last administered on 10/30/18at 20:03; Start 10/30/18 at 21:00 Glimepiride (Amaryl) 1 mg DAILY08 PO ; Start 10/31/18 at 08:00 Hydralazine HCl (Apresoline) 10 mg PRN Q4HRS PRN PO HYPERTENSION SEE COMMENTS; Start 10/30/18 at 21:00 Losartan Potassium (Cozaar) 100 mg DAILY PO ; Start 10/31/18 at 09:00 Magnesium Hydroxide (Milk Of Magnesia) 2,400 mg PRN QHS PRN PO CONSTIPATION; Start 10/30/18 at 18:45 Melatonin 9 mg QHS PO Last administered on 10/30/18at 20:04; Start 10/30/18 at 21:00 Memantine (Namenda) 10 mg BID PO Last administered on 10/30/18at 20:03; Start at 21:00 Multi-Ingredient Ointment (Analgesic [place]) 1 karey PRN QID PRN TP MUSCLE PAIN; Start 10/30/18 at 18:45 Multivitamins/ Calcium (Thera-M Plus) 1 tab DAILY PO ; Start 10/31/18 at 09:00 Olanzapine (ZyPREXA) 2.5 mg QHS PO Last administered on 10/30/18at 20:03; Start 10/30/18 at 21:00 Non-Formulary Medication (Pedi M.vit No.17 With Fluoride (Multivit-Fluor 0.5 Mg Tab Chw)) 0.5 mg DAILY PO ; Start 10/31/18 at 09:00; Status UNV Triamcinolone Acetonide (Kenalog) 1 karey BID TP ; Start 10/30/18 at 21:00 Active Scripts Active Hydralazine Hcl 10 Mg Tablet 10 Mg PO PRN Q4HRS PRN 30 Days Reported Multiple Vitamin (Multivitamin With Minerals) 1 Each Tablet 1 Each PO DAILY Bengay (Menthol) 113 Gm Gel..gram. 1 Applic TP PRN QID PRN Milk Of Magnesia (Magnesium Hydroxide) 2,400 Mg/10 Ml Oral.susp 2,400 Mg PO PRN QHS PRN Maalox Maximum Strength Susp (Mag Hydrox/Al Hydrox/Simeth) 355 Ml Oral.susp 15 Ml PO PRN AFTMEALHC PRN Tylenol (Acetaminophen) 325 Mg Tablet 650 Mg PO PRN Q4HRS PRN Triamcinolone Acetonide 15 Gm Cream..g. 1 Karey TP BID Zoloft (Sertraline Hcl) 100 Mg Tablet 100 Mg PO DAILY Olanzapine 2.5 Mg Tablet 2.5 Mg PO QHS Multivit-Fluor 0.5 Mg Tab Chw (Pedi M.vit No.17 With Fluoride) 0.5 Mg Tab.chew 0.5 Mg PO DAILY Namenda (Memantine Hcl) 10 Mg Tablet 10 Mg PO BID Melatonin 3 Mg Tablet 9 Mg PO QHS Cozaar (Losartan Potassium) 100 Mg Tablet 100 Mg PO DAILY Glimepiride 1 Mg Tablet 1 Mg PO DAILY Docusate Sodium 100 Mg Capsule 100 Mg PO BID Aspirin 81 Mg Tab.chew 81 Mg PO DAILY I have reviewed the current psychotropics carefully including drug interactions. Risk benefit ratio favors no change other than as noted in my dictated progress note. Diagnosis: Problems: (1) Anxiety disorder (2) Impulse control disorder (3) Frontotemporal dementia with behavioral disturbance (4) Hypertensive urgency ALISHA MICHAELS MD Oct 30, 2018 22:18
[2018-10-31 05:57] VITALS: BP 157/78
[2018-10-31] MEDS: MULTIVITAMIN with MINERAL TABLET. PO SCH (07:47)
[2018-10-31] MEDS: LOSARTAN 50 MG TABLET. PO SCH (07:47)
[2018-10-31] MEDS: SERTRALINE 100 MG TABLET. PO SCH (07:47)
[2018-10-31] MEDS: MEMANTINE 10 MG TABLET. PO SCH ×2 (07:47→20:13)
[2018-10-31] MEDS: GLIMEPIRIDE 2 MG TABLET PO SCH (07:47)
[2018-10-31] MEDS: ASPIRIN 81 MG TAB.CHEW PO SCH (07:47)
[2018-10-31] MEDS: DOCUSATE SODIUM 100 MG CAPSULE PO SCH ×2 (07:47→20:13)
[2018-10-31] MEDS: TRIAMCINOLONE ACETONIDE 0.1% TOPICAL CREAM 15GM TUBE. TP SCH (07:48)
[2018-10-31] MEDS ORDERED: [UNRECOGNIZED DRUG - MIXTURE] PO SCH (09:00)
[2018-10-31] MEDS ORDERED: TRIAMCINOLONE ACETONIDE 0.1% TOPICAL CREAM 15GM TUBE. TP PRN (12:45)
[2018-10-31] MEDS: hydrALAZINE 10 MG TABLET PO PRN ×2 (15:35→20:15)
[2018-10-31 16:14] VITALS: BP 196/94
[2018-10-31 20:09] VITALS: BP 195/90
[2018-10-31] MEDS: OLANZapine 2.5 MG TABLET PO SCH (20:13)
[2018-10-31] MEDS: MELATONIN 3 MG TABLET PO SCH (20:13)
--- NOTE | 2018-10-31 22:58 | PDOC ---
Exam Note: Alvin Note: Please also refer to the separate dictated note~for this date of service dictated separately.~Patient seen individually. Discussed the patient with Nursing staff reviewed the chart.~Reviewed interim history and current functioning. Reviewed vital signs,~Labs/ Radiology~and current medications noted below. Continue current treatment with the changes noted in the dictated addendum note Assessment: Vital Signs: Vital Signs Date Time Temp Pulse Resp B/P (MAP) Pulse Ox O2 Delivery O2 Flow Rate FiO2 10/31/18 20:15 60 195/90 10/31/18 20:09 97.1 18 98 Room Air I&O Intake and Output 10/31/18 07:01 Intake Total 480 ml Balance 480 ml Intake Oral 480 ml Current Medications: Meds: Current Medications Olanzapine (ZyPREXA ZYDIS) 2.5 mg PRN Q2HR PRN PO PSYCHOSIS Last administered on 10/31/18at 15:35; Start 10/30/18 at 17:45 Acetaminophen (Tylenol) 650 mg PRN Q4HRS PRN PO PAIN / TEMP; Start 10/30/18 at 18:00 Al Hydroxide/Mg Hydroxide (Mylanta Plus Xs) 15 ml PRN AFTMEALHC PRN PO DYSPEPSIA; Start 10/30/18 at 18:00 Sertraline HCl (Zoloft) 100 mg DAILY PO Last administered on 10/31/18at 07:47; Start 10/31/18 at 09:00 Aspirin (Children'S Aspirin) 81 mg DAILYWBKFT PO Last administered on at 07:47; Start 10/31/18 at 08:00 Docusate Sodium (Colace) 100 mg BID PO Last administered on 10/31/18at 20:13; Start 10/30/18 at 21:00 Glimepiride (Amaryl) 1 mg DAILY08 PO Last administered on 10/31/18 07:47; Start 10/31/18 at 08:00 Hydralazine HCl (Apresoline) 10 mg PRN Q4HRS PRN PO HYPERTENSION SEE COMMENTS Last administered on 10/31/18 20:15; Start 10/30/18 at 21:00 Losartan Potassium (Cozaar) 100 mg DAILY PO Last administered on 10/31/18at 07: 47; Start 10/31/18 at 09:00 Magnesium Hydroxide (Milk Of Magnesia) 2,400 mg PRN QHS PRN PO CONSTIPATION; Start 10/30/18 at 18:45 Melatonin 9 mg QHS PO Last administered on 10/31/18at 20:13; Start 10/30/18 at 21:00 Memantine (Namenda) 10 mg BID PO Last administered on 10/31/18at 20:13; Start at 21:00 Multi-Ingredient Ointment (Analgesic [place]) 1 karey PRN QID PRN TP MUSCLE PAIN; Start 10/30/18 at 18:45 Multivitamins/ Calcium (Thera-M Plus) 1 tab DAILY PO Last administered on at 07:47; Start 10/31/18 at 09:00 Olanzapine (ZyPREXA) 2.5 mg QHS PO Last administered on 10/31/18at 20:13; Start 10/30/18 at 21:00 Non-Formulary Medication (Pedi M.vit No.17 With Fluoride (Multivit-Fluor 0.5 Mg Tab Chw)) 0.5 mg DAILY PO ; Start 10/31/18 at 09:00; Status UNV Triamcinolone Acetonide (Kenalog) 1 karey BID TP Last administered on 10/31/18at 07:48; Start 10/30/18 at 21:00; Stop 10/31/18 at 12:34; Status DC Triamcinolone Acetonide (Kenalog) 1 karey PRN BID PRN TP RASH; Start 10/31/18 at 12:45 Active Scripts Active Hydralazine Hcl 10 Mg Tablet 10 Mg PO PRN Q4HRS PRN 30 Days Reported Multiple Vitamin (Multivitamin With Minerals) 1 Each Tablet 1 Each PO DAILY Bengay (Menthol) 113 Gm Gel..gram. 1 Applic TP PRN QID PRN Milk Of Magnesia (Magnesium Hydroxide) 2,400 Mg/10 Ml Oral.susp 2,400 Mg PO PRN QHS PRN Maalox Maximum Strength Susp (Mag Hydrox/Al Hydrox/Simeth) 355 Ml Oral.susp 15 Ml PO PRN AFTMEALHC PRN Tylenol (Acetaminophen) 325 Mg Tablet 650 Mg PO PRN Q4HRS PRN Triamcinolone Acetonide 15 Gm Cream..g. 1 Karey TP BID Zoloft (Sertraline Hcl) 100 Mg Tablet 100 Mg PO DAILY Olanzapine 2.5 Mg Tablet 2.5 Mg PO QHS Multivit-Fluor 0.5 Mg Tab Chw (Pedi M.vit No.17 With Fluoride) 0.5 Mg Tab.chew 0.5 Mg PO DAILY Namenda (Memantine Hcl) 10 Mg Tablet 10 Mg PO BID Melatonin 3 Mg Tablet 9 Mg PO QHS Cozaar (Losartan Potassium) 100 Mg Tablet 100 Mg PO DAILY Glimepiride 1 Mg Tablet 1 Mg PO DAILY Docusate Sodium 100 Mg Capsule 100 Mg PO BID Aspirin 81 Mg Tab.chew 81 Mg PO DAILY I have reviewed the current psychotropics carefully including drug interactions. Risk benefit ratio favors no change other than as noted in my dictated progress note. Diagnosis: Problems: (1) Anxiety disorder (2) Impulse control disorder (3) Frontotemporal dementia with behavioral disturbance (4) Hypertensive urgency ALISHA MICHAELS MD Oct 31, 2018 22:58
[2018-11-01 06:14] VITALS: BP 213/84
[2018-11-01] MEDS: LOSARTAN 50 MG TABLET. PO SCH (06:25)
[2018-11-01] MEDS: hydrALAZINE 10 MG TABLET PO PRN (06:26)
[2018-11-01] MEDS: DOCUSATE SODIUM 100 MG CAPSULE PO SCH ×2 (07:44→19:47)
[2018-11-01] MEDS: SERTRALINE 100 MG TABLET. PO SCH (07:44)
[2018-11-01] MEDS: GLIMEPIRIDE 2 MG TABLET PO SCH (07:44)
[2018-11-01] MEDS: MULTIVITAMIN with MINERAL TABLET. PO SCH (07:44)
[2018-11-01] MEDS: ASPIRIN 81 MG TAB.CHEW PO SCH (07:45)
[2018-11-01] MEDS: MEMANTINE 10 MG TABLET. PO SCH ×2 (07:45→19:48)
[2018-11-01] MEDS ORDERED: hydrALAZINE 25 MG TABLET PO SCH (14:00)
[2018-11-01 15:45] VITALS: BP 204/84
[2018-11-01] MEDS: DIVALPROEX 125 MG CAP.SPRINK PO SCH (17:38)
[2018-11-01] MEDS: MELATONIN 3 MG TABLET PO SCH (19:47)
[2018-11-01] MEDS: OLANZapine 2.5 MG TABLET PO SCH (19:47)
--- NOTE | 2018-11-01 21:48 | PN ---
DATE: 10/31/2018 This is a late entry for 10/31/2018 covers elements not covered in my initial note. SUBJECTIVE: I met with the patient in the evening. The patient slept 6 hours previous evening. He appears cognitively intact, but is oriented just to himself. Blood pressure was elevated at 196/94. We will defer to Dr. Mejia. He received p.r.n. hydralazine. He is exit seeking, wandering, seems to look normal and staff will make added precautions to keep him from walking off the unit. REVIEW OF SYSTEMS: No CV, , pulmonary, eye, ENT system symptoms on review. Reliability poor. MENTAL STATUS EXAM: Oriented to himself. Insight, judgment, recent and remote memory, attention, concentration, fund of knowledge poor, consistent with his diagnosis. IMPRESSION: Major neurocognitive disorder, frontotemporal with delusion, depression, behavioral disturbance; anxiety disorder, unspecified; impulse control disorder, unspecified. Rest unchanged. PLAN: No change from initial note. May consider adding Depakote as a mood stabilizer, given his marked impulse control secondary to frontotemporal dementia. We will look at doing that on 11/01/2018. ALISHA MICHAELS MD DR: MARIA GUADALUPE/steven JOB#: [id number] / [id number]
--- NOTE | 2018-11-01 22:55 | PDOC ---
Exam Note: Alvin Note: Please also refer to the separate dictated note~for this date of service dictated separately.~Patient seen individually. Discussed the patient with Nursing staff reviewed the chart.~Reviewed interim history and current functioning. Reviewed vital signs,~Labs/ Radiology~and current medications noted below. Continue current treatment with the changes noted in the dictated addendum note Assessment: Vital Signs: Vital Signs Date Time Temp Pulse Resp B/P (MAP) Pulse Ox O2 Delivery O2 Flow Rate FiO2 11/01/18 19:49 74 204/84 11/01/18 15:45 98.7 16 98 10/31/18 20:09 Room Air I&O Intake and Output 11/01/18 07:01 Intake Total 1080 ml Balance 1080 ml Intake Oral 1080 ml # Voids 1 Current Medications: Meds: Current Medications Olanzapine (ZyPREXA ZYDIS) 2.5 mg PRN Q2HR PRN PO PSYCHOSIS Last administered on 10/31/18at 15:35; Start 10/30/18 at 17:45 Acetaminophen (Tylenol) 650 mg PRN Q4HRS PRN PO PAIN / TEMP; Start 10/30/18 at 18:00 Al Hydroxide/Mg Hydroxide (Mylanta Plus Xs) 15 ml PRN AFTMEALHC PRN PO DYSPEPSIA; Start 10/30/18 at 18:00 Sertraline HCl (Zoloft) 100 mg DAILY PO Last administered on 11/01/18at 07:44; Start 10/31/18 at 09:00 Aspirin (Children'S Aspirin) 81 mg DAILYWBKFT PO Last administered on at 07:45; Start 10/31/18 at 08:00 Docusate Sodium (Colace) 100 mg BID PO Last administered on 11/01/18at 19:47; Start 10/30/18 at 21:00 Glimepiride (Amaryl) 1 mg DAILY08 PO Last administered on 11/01/18at 07:44; Start 10/31/18 at 08:00 Hydralazine HCl (Apresoline) 10 mg PRN Q4HRS PRN PO HYPERTENSION SEE COMMENTS Last administered on 11/01/18at 06:26; Start 10/30/18 at 21:00; Stop 11/01/18 at 12:54; Status DC Losartan Potassium (Cozaar) 100 mg DAILY PO Last administered on 11/01/18 06: 25; Start 10/31/18 at 09:00 Magnesium Hydroxide (Milk Of Magnesia) 2,400 mg PRN QHS PRN PO CONSTIPATION; Start 10/30/18 at 18:45 Melatonin 9 mg QHS PO Last administered on 11/01/18at 19:47; Start 10/30/18 at 21:00 Memantine (Namenda) 10 mg BID PO Last administered on 11/01/18 19:48; Start at 21:00 Multi-Ingredient Ointment (Analgesic [place]) 1 karey PRN QID PRN TP MUSCLE PAIN; Start 10/30/18 at 18:45 Multivitamins/ Calcium (Thera-M Plus) 1 tab DAILY PO Last administered on 07:44; Start 10/31/18 at 09:00 Olanzapine (ZyPREXA) 2.5 mg QHS PO Last administered on 11/01/18 19:47; Start 10/30/18 at 21:00 Non-Formulary Medication (Pedi M.vit No.17 With Fluoride (Multivit-Fluor 0.5 Mg Tab Chw)) 0.5 mg DAILY PO ; Start 10/31/18 at 09:00; Status UNV Triamcinolone Acetonide (Kenalog) 1 karey BID TP Last administered on 10/31/18at 07:48; Start 10/30/18 at 21:00; Stop 10/31/18 at 12:34; Status DC Triamcinolone Acetonide (Kenalog) 1 karey PRN BID PRN TP RASH; Start 10/31/18 at 12:45 Hydralazine HCl (Apresoline) 25 mg Q8H PO Last administered on 11/01/18at 14:00 ; Start 11/01/18 at 14:00; Stop 11/01/18 at 17:21; Status DC Divalproex Sodium (Depakote Sprinkles) 125 mg 0900,1700 PO Last administered on 11/01/18 17:38; Start 11/01/18 at 17:00 Hydralazine HCl (Apresoline) 50 mg TID PO Last administered on 11/01/18 19:49 ; Start 11/01/18 at 21:00 Active Scripts Active Hydralazine Hcl 10 Mg Tablet 10 Mg PO PRN Q4HRS PRN 30 Days Reported Multiple Vitamin (Multivitamin With Minerals) 1 Each Tablet 1 Each PO DAILY Bengay (Menthol) 113 Gm Gel..gram. 1 Applic TP PRN QID PRN Milk Of Magnesia (Magnesium Hydroxide) 2,400 Mg/10 Ml Oral.susp 2,400 Mg PO PRN QHS PRN Maalox Maximum Strength Susp (Mag Hydrox/Al Hydrox/Simeth) 355 Ml Oral.susp 15 Ml PO PRN AFTMEALHC PRN Tylenol (Acetaminophen) 325 Mg Tablet 650 Mg PO PRN Q4HRS PRN Triamcinolone Acetonide 15 Gm Cream..g. 1 Karey TP BID Zoloft (Sertraline Hcl) 100 Mg Tablet 100 Mg PO DAILY Olanzapine 2.5 Mg Tablet 2.5 Mg PO QHS Multivit-Fluor 0.5 Mg Tab Chw (Pedi M.vit No.17 With Fluoride) 0.5 Mg Tab.chew 0.5 Mg PO DAILY Namenda (Memantine Hcl) 10 Mg Tablet 10 Mg PO BID Melatonin 3 Mg Tablet 9 Mg PO QHS Cozaar (Losartan Potassium) 100 Mg Tablet 100 Mg PO DAILY Glimepiride 1 Mg Tablet 1 Mg PO DAILY Docusate Sodium 100 Mg Capsule 100 Mg PO BID Aspirin 81 Mg Tab.chew 81 Mg PO DAILY I have reviewed the current psychotropics carefully including drug interactions. Risk benefit ratio favors no change other than as noted in my dictated progress note. Diagnosis: Problems: (1) Anxiety disorder (2) Impulse control disorder (3) Frontotemporal dementia with behavioral disturbance (4) Hypertensive urgency ALISHA MICHAELS MD Nov 01, 2018 22:55
--- NOTE | 2018-11-02 03:58 | CONS ---
DATE OF CONSULTATION: 11/01/2018 REASON FOR CONSULTATION: For medical management. HISTORY OF PRESENT ILLNESS: The patient is a 68-year-old -[place] male patient who was originally admitted to [facility] for medical stabilization as he has hypertensive urgency. He initially presented to Emergency Room as a referral directly from his primary care physician at the [facility] as the patient had worsening mood lability, confusion secondary to frontotemporal dementia and apparently has been unmanageable at home. The patient was very pleasant actually this afternoon. When I questioned him, did not display and he clearly obviously demented and forgetful, but was very pleasant and cooperative. In fact, he denied any complaint. PAST MEDICAL HISTORY: Significant for type 2 diabetes, hypertension, hyperlipidemia, and gout. PAST SURGICAL HISTORY: Unobtainable. FAMILY HISTORY: Noncontributory. SOCIAL HISTORY: Again, there is no history of alcohol or drug abuse. ALLERGIES: HE IS ALLERGIC TO CODEINE AND METFORMIN. MEDICATIONS: He is currently on following medications: He is on hydralazine 10 mg every 4 hours, losartan potassium 100 mg, aspirin 81 mg once a day, acetaminophen 650 mg every 4 hours, sertraline 100 mg daily, olanzapine 2.5 mg at bedtime, Namenda 10 mg twice a day, Maalox 15 mL after meals, docusate sodium 100 mg twice a day, magnesium hydroxide for milk of magnesia 30 mL p.o. daily p.r.n. for constipation, glimepiride 1 mg daily, triamcinolone acetonide 0.1% cream applied topically twice a day, BenGay 1 applied topically 4 times a day, multivitamin with mineral 1 tablet once a day. He is on melatonin 9 mg p.o. at bedtime. PHYSICAL EXAMINATION: GENERAL: When I examined him this afternoon, he was sitting in his chair comfortably in no apparent distress, was very pleasant. There was no pallor, jaundice, cyanosis, or thyromegaly. No jugular venous distention. No lower limb edema. VITAL SIGNS: His heart rate was 49, blood pressure was 213/84, temperature was 97.1, respiratory rate was 16, and oxygen saturation was 100%. HEAD, EYES, EARS, NOSE, AND THROAT: Showed normocephalic, atraumatic. NECK: Supple. HEART: Showed normal first and second heart sounds. No gallop or murmur. CHEST: Clear to auscultation. No crepitation or rhonchi. ABDOMEN: Distended, soft, nontender. No guarding or rigidity. No organomegaly. All hernial orifices intact. Bowel sounds normal. NEUROLOGIC: He is demented without any obvious lateralizing sign. LABORATORY DATA: His lab work showed that his white cell count was 4300, hemoglobin 13.9, hematocrit 40, MCV 91, and platelet count 250,000 with normal manual differential. Serum sodium was 144, potassium 3.9, chloride 105, bicarbonate 31, anion gap of 8, BUN 14, creatinine 1.2, estimated GFR was 73 mL per minute. His glucose was 105, calcium was 9, magnesium was 2.1. Total bilirubin, AST, ALT, alkaline phosphatase were normal. Total protein was 7.5, albumin 3.7. His vitamin B12 was 632 pg/mL. His D-dimer was 0.44 and urinalysis was essentially unremarkable. IMPRESSION AND PLAN: In summary, this is a 68-year-old -[place] male patient who was admitted as a transfer from [facility] after he was treated there for hypertensive urgency and was admitted [facility] on account of being very delusional, wandering, confused, unmanageable at home. He unfortunately continues to be extremely hypertensive. He is currently on following medications: He is on losartan potassium 100 mg once a day and hydralazine 10 mg every 4 hours. His systolic pressure is extremely elevated. We will increase his hydralazine to 25 mg 3 times a day and we will monitor him closely and adjust antihypertensive medication to achieve a better control of his blood pressure. I will also arrange for him to have ultrasound of his kidneys and duplex ultrasound of his renal arteries to make sure he does not have renal artery stenosis. NIR BERNSTEIN MD DR: LARON/steven JOB#: [id number] / [id number]
[2018-11-02 06:35] VITALS: BP 227/103
[2018-11-02] MEDS: GLIMEPIRIDE 2 MG TABLET PO SCH (07:58)
[2018-11-02] MEDS: DOCUSATE SODIUM 100 MG CAPSULE PO SCH ×2 (07:59→19:47)
[2018-11-02] MEDS: LOSARTAN 50 MG TABLET. PO SCH (07:59)
[2018-11-02] MEDS: MULTIVITAMIN with MINERAL TABLET. PO SCH (07:59)
[2018-11-02] MEDS: ASPIRIN 81 MG TAB.CHEW PO SCH (07:59)
[2018-11-02] MEDS: MEMANTINE 10 MG TABLET. PO SCH ×2 (08:00→19:52)
[2018-11-02] MEDS: SERTRALINE 100 MG TABLET. PO SCH (08:00)
[2018-11-02] MEDS: DIVALPROEX 125 MG CAP.SPRINK PO SCH ×2 (08:00→16:54)
[2018-11-02 16:14] VITALS: BP 203/91
[2018-11-02] MEDS: OLANZapine 2.5 MG TABLET PO SCH (19:52)
[2018-11-02] MEDS: MELATONIN 3 MG TABLET PO SCH (19:52)
[2018-11-02] MEDS: MIRTAZAPINE 7.5 MG TABLET. PO SCH (19:53)
--- NOTE | 2018-11-02 22:00 | RAD ---
Bilateral Renal Ultrasound, Renal Doppler: History: Uncontrolled hypertension. Technique: Sonographic examination of the kidneys was performed and multiple static images were obtained. Color Doppler and arterial spectral analysis was applied as well for a renal ultrasound and renal artery ultrasound duplex examination. Renal Ultrasound: Findings: Right Kidney: The right kidney appears normal without hydronephrosis and measures 12 cm in length. Left Kidney: The left kidney appears normal without hydronephrosis and measures 11 cm in length. There are small cysts bilaterally. Urinary Bladder: The urinary bladder is mostly collapsed. The prostate is moderately enlarged. Impression: No hydronephrosis. Renal Artery Ultrasound Duplex Examination: Findings: There is poor visualization renal arteries due to patient's difficulty following directions. There is no abnormally high velocities. Impression: Nondiagnostic study. Electronically signed by: Saqib Almonte III, MD (11/02/2018 9:55 PM) [id number]
--- NOTE | 2018-11-02 22:46 | PDOC ---
Exam Note: Alvin Note: Please also refer to the separate dictated note~for this date of service dictated separately.~Patient seen individually. Discussed the patient with Nursing staff reviewed the chart.~Reviewed interim history and current functioning. Reviewed vital signs,~Labs/ Radiology~and current medications noted below. Continue current treatment with the changes noted in the dictated addendum note Assessment: Vital Signs: Vital Signs Date Time Temp Pulse Resp B/P (MAP) Pulse Ox O2 Delivery O2 Flow Rate FiO2 11/02/18 19:53 77 203/91 11/02/18 16:14 97.5 18 98 Room Air I&O Intake and Output 11/02/18 07:01 Intake Total 960 ml Balance 960 ml Intake Oral 960 ml Current Medications: Meds: Current Medications Olanzapine (ZyPREXA ZYDIS) 2.5 mg PRN Q2HR PRN PO PSYCHOSIS Last administered on 11/02/18at 16:55; Start 10/30/18 at 17:45 Acetaminophen (Tylenol) 650 mg PRN Q4HRS PRN PO PAIN / TEMP; Start 10/30/18 at 18:00 Al Hydroxide/Mg Hydroxide (Mylanta Plus Xs) 15 ml PRN AFTMEALHC PRN PO DYSPEPSIA; Start 10/30/18 at 18:00 Sertraline HCl (Zoloft) 100 mg DAILY PO Last administered on 11/02/18at 08:00; Start 10/31/18 at 09:00 Aspirin (Children'S Aspirin) 81 mg DAILYWBKFT PO Last administered on at 07:59; Start 10/31/18 at 08:00 Docusate Sodium (Colace) 100 mg BID PO Last administered on 11/02/18at 19:47; Start 10/30/18 at 21:00 Glimepiride (Amaryl) 1 mg DAILY08 PO Last administered on 11/02/18 07:58; Start 10/31/18 at 08:00 Hydralazine HCl (Apresoline) 10 mg PRN Q4HRS PRN PO HYPERTENSION SEE COMMENTS Last administered on 11/01/18 06:26; Start 10/30/18 at 21:00; Stop 11/01/18 at 12:54; Status DC Losartan Potassium (Cozaar) 100 mg DAILY PO Last administered on 1/29/19at 07: 59; Start 10/31/18 at 09:00 Magnesium Hydroxide (Milk Of Magnesia) 2,400 mg PRN QHS PRN PO CONSTIPATION; Start 10/30/18 at 18:45 Melatonin 9 mg QHS PO Last administered on 11/02/18at 19:52; Start 10/30/18 at 21:00 Memantine (Namenda) 10 mg BID PO Last administered on 11/02/18 19:52; Start at 21:00 Multi-Ingredient Ointment (Analgesic [place]) 1 karey PRN QID PRN TP MUSCLE PAIN; Start 10/30/18 at 18:45 Multivitamins/ Calcium (Thera-M Plus) 1 tab DAILY PO Last administered on 07:59; Start 10/31/18 at 09:00 Olanzapine (ZyPREXA) 2.5 mg QHS PO Last administered on 11/02/18 19:52; Start 10/30/18 at 21:00 Non-Formulary Medication (Pedi M.vit No.17 With Fluoride (Multivit-Fluor 0.5 Mg Tab Chw)) 0.5 mg DAILY PO ; Start 10/31/18 at 09:00; Status UNV Triamcinolone Acetonide (Kenalog) 1 karey BID TP Last administered on 10/31/18at 07:48; Start 10/30/18 at 21:00; Stop 10/31/18 at 12:34; Status DC Triamcinolone Acetonide (Kenalog) 1 karey PRN BID PRN TP RASH; Start 10/31/18 at 12:45 Hydralazine HCl (Apresoline) 25 mg Q8H PO Last administered on 11/01/18at 14:00 ; Start 11/01/18 at 14:00; Stop 11/01/18 at 17:21; Status DC Divalproex Sodium (Depakote Sprinkles) 125 mg 0900,1700 PO Last administered on 11/02/18 16:54; Start 11/01/18 at 17:00 Hydralazine HCl (Apresoline) 50 mg TID PO Last administered on 11/02/18at 13:33 ; Start 11/01/18 at 21:00; Stop 11/02/18 at 15:47; Status DC Hydralazine HCl (Apresoline) 100 mg TID PO Last administered on 11/02/18at 19:52 ; Start 11/02/18 at 21:00 Nifedipine (Procardia Xl) 30 mg BID PO Last administered on 11/02/18at 19:53; Start 11/02/18 at 21:00 Mirtazapine (Remeron) 7.5 mg QHS PO Last administered on 11/02/18at 19:53; Start 11/02/18 at 21:00 Active Scripts Active Hydralazine Hcl 10 Mg Tablet 10 Mg PO PRN Q4HRS PRN 30 Days Reported Multiple Vitamin (Multivitamin With Minerals) 1 Each Tablet 1 Each PO DAILY Bengay (Menthol) 113 Gm Gel..gram. 1 Applic TP PRN QID PRN Milk Of Magnesia (Magnesium Hydroxide) 2,400 Mg/10 Ml Oral.susp 2,400 Mg PO PRN QHS PRN Maalox Maximum Strength Susp (Mag Hydrox/Al Hydrox/Simeth) 355 Ml Oral.susp 15 Ml PO PRN AFTMEALHC PRN Tylenol (Acetaminophen) 325 Mg Tablet 650 Mg PO PRN Q4HRS PRN Triamcinolone Acetonide 15 Gm Cream..g. 1 Karey TP BID Zoloft (Sertraline Hcl) 100 Mg Tablet 100 Mg PO DAILY Olanzapine 2.5 Mg Tablet 2.5 Mg PO QHS Multivit-Fluor 0.5 Mg Tab Chw (Pedi M.vit No.17 With Fluoride) 0.5 Mg Tab.chew 0.5 Mg PO DAILY Namenda (Memantine Hcl) 10 Mg Tablet 10 Mg PO BID Melatonin 3 Mg Tablet 9 Mg PO QHS Cozaar (Losartan Potassium) 100 Mg Tablet 100 Mg PO DAILY Glimepiride 1 Mg Tablet 1 Mg PO DAILY Docusate Sodium 100 Mg Capsule 100 Mg PO BID Aspirin 81 Mg Tab.chew 81 Mg PO DAILY I have reviewed the current psychotropics carefully including drug interactions. Risk benefit ratio favors no change other than as noted in my dictated progress note. Diagnosis: Problems: (1) Anxiety disorder (2) Impulse control disorder (3) Frontotemporal dementia with behavioral disturbance (4) Hypertensive urgency ALISHA MICHAELS MD Nov 02, 2018 22:46
--- NOTE | 2018-11-02 23:15 | PN ---
DATE: 11/01/2018 PSYCHIATRIC PROGRESS NOTE This late entry 11/01/2018 covers elements not covered in my initial note. SUBJECTIVE: I met with the patient in the evening. The patient slept 6-3/4 hours previous night. His blood pressure was elevated 213/84. Received hydralazine 25 mg. Remains oriented to himself, anxious, exit seeking at times. REVIEW OF SYSTEMS: No CV, , pulmonary, eye, ENT system symptoms on review. Reliability poor. MENTAL STATUS EXAM: Oriented to himself. Insight, judgment, recent and remote memory, attention, concentration, fund of knowledge poor, consistent with his diagnosis. IMPRESSION: Major neurocognitive disorder, frontotemporal with delusion, depression, behavioral disturbance. Rest unchanged. PLAN: Start Depakote Sprinkles 125 mg 9 a.m., 5:00 p.m. Check CBC, CMP, valproic acid level in 3 days. Rest unchanged from initial note. Medical followup with Dr. Vyas. ALISHA MICHAELS MD DR: MARIA GUADALUPE/steven JOB#: [id number] / [id number]
[2018-11-03 06:01] VITALS: BP 185/95
[2018-11-03] MEDS: GLIMEPIRIDE 2 MG TABLET PO SCH (07:56)
[2018-11-03] MEDS: ASPIRIN 81 MG TAB.CHEW PO SCH (07:56)
[2018-11-03] MEDS: DOCUSATE SODIUM 100 MG CAPSULE PO SCH ×2 (07:57→20:20)
[2018-11-03] MEDS: DIVALPROEX 125 MG CAP.SPRINK PO SCH ×2 (07:58→17:28)
[2018-11-03] MEDS: MEMANTINE 10 MG TABLET. PO SCH ×2 (07:58→20:21)
[2018-11-03] MEDS: LOSARTAN 50 MG TABLET. PO SCH (07:58)
[2018-11-03] MEDS: MULTIVITAMIN with MINERAL TABLET. PO SCH (07:59)
[2018-11-03] MEDS: SERTRALINE 100 MG TABLET. PO SCH (08:00)
[2018-11-03 14:11] VITALS: BP 151/73
[2018-11-03] MEDS: CHOLECALCIFEROL (VITAMIN D3) 50,000 UNIT CAPSULE PO SCH (14:16)
[2018-11-03 16:36] VITALS: BP 180/94
[2018-11-03] MEDS: MELATONIN 3 MG TABLET PO SCH (20:20)
[2018-11-03] MEDS: OLANZapine 2.5 MG TABLET PO SCH (20:20)
[2018-11-03] MEDS: MIRTAZAPINE 7.5 MG TABLET. PO SCH (20:20)
--- NOTE | 2018-11-03 22:43 | PDOC ---
Exam Note: Alvin Note: Please also refer to the separate dictated note~for this date of service dictated separately.~Patient seen individually. Discussed the patient with Nursing staff reviewed the chart.~Reviewed interim history and current functioning. Reviewed vital signs,~Labs/ Radiology~and current medications noted below. Continue current treatment with the changes noted in the dictated addendum note Assessment: Vital Signs: Vital Signs Date Time Temp Pulse Resp B/P (MAP) Pulse Ox O2 Delivery O2 Flow Rate FiO2 11/03/18 20:20 71 180/94 11/03/18 16:36 98.6 16 99 11/02/18 16:14 Room Air I&O Intake and Output 11/03/18 07:01 Intake Total 845 ml Balance 845 ml Intake Oral 845 ml Current Medications: Meds: Current Medications Olanzapine (ZyPREXA ZYDIS) 2.5 mg PRN Q2HR PRN PO PSYCHOSIS Last administered on 11/03/18at 12:49; Start 10/30/18 at 17:45 Acetaminophen (Tylenol) 650 mg PRN Q4HRS PRN PO PAIN / TEMP; Start 10/30/18 at 18:00 Al Hydroxide/Mg Hydroxide (Mylanta Plus Xs) 15 ml PRN AFTMEALHC PRN PO DYSPEPSIA; Start 10/30/18 at 18:00 Sertraline HCl (Zoloft) 100 mg DAILY PO Last administered on 11/03/18at 08:00; Start 10/31/18 at 09:00 Aspirin (Children'S Aspirin) 81 mg DAILYWBKFT PO Last administered on at 07:56; Start 10/31/18 at 08:00 Docusate Sodium (Colace) 100 mg BID PO Last administered on 11/03/18at 20:20; Start 10/30/18 at 21:00 Glimepiride (Amaryl) 1 mg DAILY08 PO Last administered on 11/03/18 07:56; Start 10/31/18 at 08:00 Hydralazine HCl (Apresoline) 10 mg PRN Q4HRS PRN PO HYPERTENSION SEE COMMENTS Last administered on 11/01/18at 06:26; Start 10/30/18 at 21:00; Stop 11/01/18 at 12:54; Status DC Losartan Potassium (Cozaar) 100 mg DAILY PO Last administered on 11/03/18 07: 58; Start 10/31/18 at 09:00 Magnesium Hydroxide (Milk Of Magnesia) 2,400 mg PRN QHS PRN PO CONSTIPATION; Start 10/30/18 at 18:45 Melatonin 9 mg QHS PO Last administered on 11/03/18at 20:20; Start 10/30/18 at 21:00 Memantine (Namenda) 10 mg BID PO Last administered on 11/03/18 20:21; Start at 21:00 Multi-Ingredient Ointment (Analgesic [place]) 1 karey PRN QID PRN TP MUSCLE PAIN; Start 10/30/18 at 18:45 Multivitamins/ Calcium (Thera-M Plus) 1 tab DAILY PO Last administered on 07:59; Start 10/31/18 at 09:00 Olanzapine (ZyPREXA) 2.5 mg QHS PO Last administered on 11/03/18 20:20; Start 10/30/18 at 21:00 Non-Formulary Medication (Pedi M.vit No.17 With Fluoride (Multivit-Fluor 0.5 Mg Tab Chw)) 0.5 mg DAILY PO ; Start 10/31/18 at 09:00; Status UNV Triamcinolone Acetonide (Kenalog) 1 karey BID TP Last administered on 10/31/18at 07:48; Start 10/30/18 at 21:00; Stop 10/31/18 at 12:34; Status DC Triamcinolone Acetonide (Kenalog) 1 karey PRN BID PRN TP RASH; Start 10/31/18 at 12:45 Hydralazine HCl (Apresoline) 25 mg Q8H PO Last administered on 11/01/18at 14:00 ; Start 11/01/18 at 14:00; Stop 11/01/18 at 17:21; Status DC Divalproex Sodium (Depakote Sprinkles) 125 mg 0900,1700 PO Last administered on 11/03/18 17:28; Start 11/01/18 at 17:00 Hydralazine HCl (Apresoline) 50 mg TID PO Last administered on 11/02/18 13:33 ; Start 11/01/18 at 21:00; Stop 11/02/18 at 15:47; Status DC Hydralazine HCl (Apresoline) 100 mg TID PO Last administered on 11/03/18at 20:20 ; Start 11/02/18 at 21:00 Nifedipine (Procardia Xl) 30 mg BID PO Last administered on 11/03/18at 07:59; Start 11/02/18 at 21:00; Stop 11/03/18 at 12:59; Status DC Mirtazapine (Remeron) 7.5 mg QHS PO Last administered on 11/03/18at 20:20; Start 11/02/18 at 21:00 Nifedipine (Procardia Xl) 60 mg BID PO ; Start 11/03/18 at 21:00 Vitamin D (Vitamin D3) 50,000 unit WEEKLY PO Last administered on 11/03/18at 14: 16; Start 11/03/18 at 13:00 Active Scripts Active Hydralazine Hcl 10 Mg Tablet 10 Mg PO PRN Q4HRS PRN 30 Days Reported Multiple Vitamin (Multivitamin With Minerals) 1 Each Tablet 1 Each PO DAILY Bengay (Menthol) 113 Gm Gel..gram. 1 Applic TP PRN QID PRN Milk Of Magnesia (Magnesium Hydroxide) 2,400 Mg/10 Ml Oral.susp 2,400 Mg PO PRN QHS PRN Maalox Maximum Strength Susp (Mag Hydrox/Al Hydrox/Simeth) 355 Ml Oral.susp 15 Ml PO PRN AFTMEALHC PRN Tylenol (Acetaminophen) 325 Mg Tablet 650 Mg PO PRN Q4HRS PRN Triamcinolone Acetonide 15 Gm Cream..g. 1 Karey TP BID Zoloft (Sertraline Hcl) 100 Mg Tablet 100 Mg PO DAILY Olanzapine 2.5 Mg Tablet 2.5 Mg PO QHS Multivit-Fluor 0.5 Mg Tab Chw (Pedi M.vit No.17 With Fluoride) 0.5 Mg Tab.chew 0.5 Mg PO DAILY Namenda (Memantine Hcl) 10 Mg Tablet 10 Mg PO BID Melatonin 3 Mg Tablet 9 Mg PO QHS Cozaar (Losartan Potassium) 100 Mg Tablet 100 Mg PO DAILY Glimepiride 1 Mg Tablet 1 Mg PO DAILY Docusate Sodium 100 Mg Capsule 100 Mg PO BID Aspirin 81 Mg Tab.chew 81 Mg PO DAILY I have reviewed the current psychotropics carefully including drug interactions. Risk benefit ratio favors no change other than as noted in my dictated progress note. Diagnosis: Problems: (1) Anxiety disorder (2) Impulse control disorder (3) Frontotemporal dementia with behavioral disturbance (4) Hypertensive urgency ALISHA MICHAELS MD Nov 03, 2018 22:43
--- NOTE | 2018-11-04 03:12 | PN ---
DATE: 11/02/2018 This is a late entry for 11/02/2018 covers elements not covered in my initial note. SUBJECTIVE: I met with the patient in the evening. The patient slept 5 hours previous night. He remains confused, somewhat paranoid, believes people are taking things from him. Daughter is concerned regarding his sleep at night and we will add Remeron 7.5 mg p.o. at bedtime, but he is tolerating the Depakote 125 b.i.d. REVIEW OF SYSTEMS: No CV, , pulmonary, eye, ENT system symptoms on review. Reliability poor. MENTAL STATUS EXAM: Oriented to himself. Insight, judgment, recent and remote memory, attention, concentration, fund of knowledge poor, consistent with his diagnosis. IMPRESSION: Major neurocognitive disorder, frontotemporal with delusion, depression, behavioral disturbance. Rest unchanged. PLAN: As noted above. Add Remeron. Continue Depakote and rest of the psychotropics, melatonin, Namenda unchanged. MAN Kesha MICHAELS MD DR: MARIA GUADALUPE/steven JOB#: [id number] / [id number]
[2018-11-04 06:55] VITALS: BP 176/89
[2018-11-04] MEDS: SERTRALINE 100 MG TABLET. PO SCH (08:29)
[2018-11-04] MEDS: MULTIVITAMIN with MINERAL TABLET. PO SCH (08:29)
[2018-11-04] MEDS: MEMANTINE 10 MG TABLET. PO SCH ×2 (08:29→19:46)
[2018-11-04] MEDS: DOCUSATE SODIUM 100 MG CAPSULE PO SCH ×2 (08:29→19:46)
[2018-11-04] MEDS: ASPIRIN 81 MG TAB.CHEW PO SCH (08:29)
[2018-11-04] MEDS: GLIMEPIRIDE 2 MG TABLET PO SCH (08:29)
[2018-11-04] MEDS: DIVALPROEX 125 MG CAP.SPRINK PO SCH ×2 (08:29→16:46)
[2018-11-04] MEDS: LOSARTAN 50 MG TABLET. PO SCH (08:30)
[2018-11-04 10:13] LABS: BASO # 0.1 x10^3/uL (0.0-0.2); BASO % 1 % (0-3); EOS # 0.4 x10^3/uL (0.0-0.7); EOS % 6 % (0-3); HEMATOCRIT 42.8 % (39.0-53.0); HEMOGLOBIN 14.4 g/dL (13.0-17.5); LYMPH # 1.5 x10^3/uL (1.0-4.8); LYMPH % 22 % (24-48); MEAN CORPUSCULAR HEMOGLOBIN 31 pg (25-35); MEAN CORPUSCULAR HGB CONC 34 g/dL (31-37); MEAN CORPUSCULAR VOLUME 92 fL (79-100); MONO # 0.5 x10^3/uL (0.0-1.1); MONO % 8 % (0-9); NEUT # 4.2 x10^3uL (1.8-7.7); NEUT % 63 % (31-73); PLATELET COUNT 341 x10^3/uL (140-400); RED BLOOD COUNT 4.65 x10^6/uL (4.30-5.70); RED CELL DISTRIBUTION WIDTH 13.2 % (11.5-14.5); WHITE BLOOD COUNT 6.7 x10^3/uL (4.0-11.0)
[2018-11-04 10:24] LABS: ALBUMIN/GLOBULIN RATIO 0.9 (1.0-1.7); ALK PHOS 94 U/L (46-116); ALT (SGPT) 40 U/L (16-63); ANION GAP 7 (6-14); AST (SGOT) 27 U/L (15-37); BLOOD UREA NITROGEN 21 mg/dL (8-26); BUN/CREATININE RATIO 15 (6-20); CALCIUM 9.5 mg/dL (8.5-10.1); CARBON DIOXIDE 32 mmol/L (21-32); CHLORIDE 102 mmol/L (98-107); CREATININE 1.4 mg/dL (0.7-1.3); GLUCOSE 234 mg/dL (70-99); SODIUM 141 mmol/L (136-145); TOTAL BILIRUBIN 0.4 mg/dL (0.2-1.0); TOTAL PROTEIN 8.4 g/dL (6.4-8.2)
[2018-11-04 10:26] LABS: VAL ACID 13 mcg/mL (50-100)
[2018-11-04 16:22] VITALS: BP 176/89
[2018-11-04] MEDS: MIRTAZAPINE 7.5 MG TABLET. PO SCH (19:46)
[2018-11-04] MEDS: OLANZapine 2.5 MG TABLET PO SCH (19:46)
[2018-11-04] MEDS: MELATONIN 3 MG TABLET PO SCH (19:46)
--- NOTE | 2018-11-04 22:37 | PDOC ---
Exam Note: Alvin Note: Please also refer to the separate dictated note~for this date of service dictated separately.~Patient seen individually. Discussed the patient with Nursing staff reviewed the chart.~Reviewed interim history and current functioning. Reviewed vital signs,~Labs/ Radiology~and current medications noted below. Continue current treatment with the changes noted in the dictated addendum note Assessment: Vital Signs: Vital Signs Date Time Temp Pulse Resp B/P (MAP) Pulse Ox O2 Delivery O2 Flow Rate FiO2 11/04/18 19:48 75 176/89 11/04/18 16:22 98.4 18 95 11/02/18 16:14 Room Air I&O Intake and Output 11/04/18 07:01 Intake Total 585 ml Balance 585 ml Intake Oral 585 ml # Bowel Movements 1 Labs: Laboratory Tests Test 11/04/18 09:52 11/04/18 12:16 White Blood Count 6.7 x10^3/uL (4.0-11.0) # Red Blood Count 4.65 x10^6/uL (4.30-5.70) Hemoglobin 14.4 g/dL (13.0-17.5) Hematocrit 42.8 % (39.0-53.0) Mean Corpuscular Volume 92 fL (79-100) Mean Corpuscular Hemoglobin 31 pg (25-35) Mean Corpuscular Hemoglobin Concent 34 g/dL (31-37) Red Cell Distribution Width 13.2 % (11.5-14.5) Platelet Count 341 x10^3/uL (140-400) Neutrophils (%) (Auto) 63 % (31-73) Lymphocytes (%) (Auto) 22 % (24-48) L Monocytes (%) (Auto) 8 % (0-9) Eosinophils (%) (Auto) 6 % (0-3) H Basophils (%) (Auto) 1 % (0-3) Neutrophils # (Auto) 4.2 x10^3uL (1.8-7.7) Lymphocytes # (Auto) 1.5 x10^3/uL (1.0-4.8) Monocytes # (Auto) 0.5 x10^3/uL (0.0-1.1) Eosinophils # (Auto) 0.4 x10^3/uL (0.0-0.7) Basophils # (Auto) 0.1 x10^3/uL (0.0-0.2) Sodium Level 141 mmol/L (136-145) Potassium Level 4.0 mmol/L (3.5-5.1) Chloride Level 102 mmol/L (98-107) Carbon Dioxide Level 32 mmol/L (21-32) Anion Gap 7 (6-14) Blood Urea Nitrogen 21 mg/dL (8-26) Creatinine 1.4 mg/dL (0.7-1.3) H Estimated GFR (Cockcroft-Gault) 61.0 BUN/Creatinine Ratio 15 (6-20) Glucose Level 234 mg/dL (70-99) H Calcium Level 9.5 mg/dL (8.5-10.1) Total Bilirubin 0.4 mg/dL (0.2-1.0) Aspartate Amino Transferase (AST) 27 U/L (15-37) Alanine Aminotransferase (ALT) 40 U/L (16-63) Alkaline Phosphatase 94 U/L (46-116) Total Protein 8.4 g/dL (6.4-8.2) H Albumin 4.0 g/dL (3.4-5.0) Albumin/Globulin Ratio 0.9 (1.0-1.7) L Valproic Acid Level 13 mcg/mL (50-100) L Valproic Acid Last Dose Date 11/03/18 Valproic Acid Last Dose Time 1700 Glucose (Fingerstick) 113 mg/dL (70-99) H Current Medications: Meds: Current Medications Olanzapine (ZyPREXA ZYDIS) 2.5 mg PRN Q2HR PRN PO PSYCHOSIS Last administered on 11/03/18at 12:49; Start 10/30/18 at 17:45 Acetaminophen (Tylenol) 650 mg PRN Q4HRS PRN PO PAIN / TEMP; Start 10/30/18 at 18:00 Al Hydroxide/Mg Hydroxide (Mylanta Plus Xs) 15 ml PRN AFTMEALHC PRN PO DYSPEPSIA; Start 10/30/18 at 18:00 Sertraline HCl (Zoloft) 100 mg DAILY PO Last administered on 11/04/18at 08:29; Start 10/31/18 at 09:00 Aspirin (Children'S Aspirin) 81 mg DAILYWBKFT PO Last administered on at 08:29; Start 10/31/18 at 08:00 Docusate Sodium (Colace) 100 mg BID PO Last administered on 11/04/18 19:46; Start 10/30/18 at 21:00 Glimepiride (Amaryl) 1 mg DAILY08 PO Last administered on 11/04/18 08:29; Start 10/31/18 at 08:00 Hydralazine HCl (Apresoline) 10 mg PRN Q4HRS PRN PO HYPERTENSION SEE COMMENTS Last administered on 11/01/18 06:26; Start 10/30/18 at 21:00; Stop 11/01/18 at 12:54; Status DC Losartan Potassium (Cozaar) 100 mg DAILY PO Last administered on 11/04/18 08: 30; Start 10/31/18 at 09:00 Magnesium Hydroxide (Milk Of Magnesia) 2,400 mg PRN QHS PRN PO CONSTIPATION; Start 10/30/18 at 18:45 Melatonin 9 mg QHS PO Last administered on 11/04/18 19:46; Start 10/30/18 at 21:00 Memantine (Namenda) 10 mg BID PO Last administered on 11/04/18 19:46; Start at 21:00 Multi-Ingredient Ointment (Analgesic [place]) 1 karey PRN QID PRN TP MUSCLE PAIN; Start 10/30/18 at 18:45 Multivitamins/ Calcium (Thera-M Plus) 1 tab DAILY PO Last administered on 08:29; Start 10/31/18 at 09:00 Olanzapine (ZyPREXA) 2.5 mg QHS PO Last administered on 11/04/18 19:46; Start 10/30/18 at 21:00 Non-Formulary Medication (Pedi M.vit No.17 With Fluoride (Multivit-Fluor 0.5 Mg Tab Chw)) 0.5 mg DAILY PO ; Start 10/31/18 at 09:00; Status UNV Triamcinolone Acetonide (Kenalog) 1 karey BID TP Last administered on 10/31/18 07:48; Start 10/30/18 at 21:00; Stop 10/31/18 at 12:34; Status DC Triamcinolone Acetonide (Kenalog) 1 karey PRN BID PRN TP RASH; Start 10/31/18 at 12:45 Hydralazine HCl (Apresoline) 25 mg Q8H PO Last administered on 11/01/18at 14:00 ; Start 11/01/18 at 14:00; Stop 11/01/18 at 17:21; Status DC Divalproex Sodium (Depakote Sprinkles) 125 mg 0900,1700 PO Last administered on 11/04/18at 16:46; Start 11/01/18 at 17:00 Hydralazine HCl (Apresoline) 50 mg TID PO Last administered on 11/02/18at 13:33 ; Start 11/01/18 at 21:00; Stop 11/02/18 at 15:47; Status DC Hydralazine HCl (Apresoline) 100 mg TID PO Last administered on 11/04/18at 19:46 ; Start 11/02/18 at 21:00 Nifedipine (Procardia Xl) 30 mg BID PO Last administered on 11/03/18at 07:59; Start 11/02/18 at 21:00; Stop 11/03/18 at 12:59; Status DC Mirtazapine (Remeron) 7.5 mg QHS PO Last administered on 11/04/18at 19:46; Start 11/02/18 at 21:00 Nifedipine (Procardia Xl) 60 mg BID PO Last administered on 11/04/18at 19:48; Start 11/03/18 at 21:00 Vitamin D (Vitamin D3) 50,000 unit WEEKLY PO Last administered on 11/03/18at 14: 16; Start 11/03/18 at 13:00 Active Scripts Active Hydralazine Hcl 10 Mg Tablet 10 Mg PO PRN Q4HRS PRN 30 Days Reported Multiple Vitamin (Multivitamin With Minerals) 1 Each Tablet 1 Each PO DAILY Bengay (Menthol) 113 Gm Gel..gram. 1 Applic TP PRN QID PRN Milk Of Magnesia (Magnesium Hydroxide) 2,400 Mg/10 Ml Oral.susp 2,400 Mg PO PRN QHS PRN Maalox Maximum Strength Susp (Mag Hydrox/Al Hydrox/Simeth) 355 Ml Oral.susp 15 Ml PO PRN AFTMEALHC PRN Tylenol (Acetaminophen) 325 Mg Tablet 650 Mg PO PRN Q4HRS PRN Triamcinolone Acetonide 15 Gm Cream..g. 1 Karey TP BID Zoloft (Sertraline Hcl) 100 Mg Tablet 100 Mg PO DAILY Olanzapine 2.5 Mg Tablet 2.5 Mg PO QHS Multivit-Fluor 0.5 Mg Tab Chw (Pedi M.vit No.17 With Fluoride) 0.5 Mg Tab.chew 0.5 Mg PO DAILY Namenda (Memantine Hcl) 10 Mg Tablet 10 Mg PO BID Melatonin 3 Mg Tablet 9 Mg PO QHS Cozaar (Losartan Potassium) 100 Mg Tablet 100 Mg PO DAILY Glimepiride 1 Mg Tablet 1 Mg PO DAILY Docusate Sodium 100 Mg Capsule 100 Mg PO BID Aspirin 81 Mg Tab.chew 81 Mg PO DAILY I have reviewed the current psychotropics carefully including drug interactions. Risk benefit ratio favors no change other than as noted in my dictated progress note. Diagnosis: Problems: (1) Anxiety disorder (2) Impulse control disorder (3) Frontotemporal dementia with behavioral disturbance (4) Hypertensive urgency ALISHA MICHAELS MD Nov 04, 2018 22:37
[2018-11-05 06:29] VITALS: BP 156/76
[2018-11-05] MEDS: ASPIRIN 81 MG TAB.CHEW PO SCH (07:44)
[2018-11-05] MEDS: MEMANTINE 10 MG TABLET. PO SCH ×2 (07:44→19:17)
[2018-11-05] MEDS: GLIMEPIRIDE 2 MG TABLET PO SCH (07:44)
[2018-11-05] MEDS: MULTIVITAMIN with MINERAL TABLET. PO SCH (07:44)
[2018-11-05] MEDS: LOSARTAN 50 MG TABLET. PO SCH (07:45)
[2018-11-05] MEDS: DOCUSATE SODIUM 100 MG CAPSULE PO SCH ×2 (07:45→19:17)
[2018-11-05] MEDS: DIVALPROEX 125 MG CAP.SPRINK PO SCH ×2 (07:45→16:21)
[2018-11-05] MEDS: SERTRALINE 100 MG TABLET. PO SCH (07:45)
[2018-11-05 16:10] VITALS: BP 146/79
[2018-11-05] MEDS: MELATONIN 3 MG TABLET PO SCH (19:17)
[2018-11-05] MEDS: OLANZapine 2.5 MG TABLET PO SCH (19:17)
[2018-11-05] MEDS: MIRTAZAPINE 7.5 MG TABLET. PO SCH (19:18)
--- NOTE | 2018-11-05 22:10 | PN ---
DATE: 11/03/2018 This late entry for 11/03/2018 covers elements not covered in my initial note. SUBJECTIVE: I met with the patient in the evening. The patient slept 5-1/2 hours previous night. He had a good night, walks around during the day, getting his belongings ready, wanting to leave, oblivious of where he is. REVIEW OF SYSTEMS: No CV, , pulmonary, eye, ENT system symptoms on review. Reliability poor. MENTAL STATUS EXAM: Oriented to himself. Insight, judgment, recent and remote memory, attention, concentration, fund of knowledge poor, consistent with his diagnosis. IMPRESSION: Major neurocognitive disorder, frontotemporal with delusion, depression, behavioral disturbance. Rest unchanged. PLAN: No change from initial note. We have initiated Depakote as a mood stabilizer. We will adjust further post labs level. MAN Kesha MICHAELS MD DR: MARIA GUADALUPE/steven JOB#: [id number] / [id number]
--- NOTE | 2018-11-05 23:01 | PDOC ---
Exam Note: Alvin Note: Please also refer to the separate dictated note~for this date of service dictated separately.~Patient seen individually. Discussed the patient with Nursing staff reviewed the chart.~Reviewed interim history and current functioning. Reviewed vital signs,~Labs/ Radiology~and current medications noted below. Continue current treatment with the changes noted in the dictated addendum note Assessment: Vital Signs: Vital Signs Date Time Temp Pulse Resp B/P (MAP) Pulse Ox O2 Delivery O2 Flow Rate FiO2 11/05/18 19:20 71 146/79 11/05/18 16:10 97.6 20 99 Room Air I&O Intake and Output 11/05/18 07:01 Intake Total 1325 ml Balance 1325 ml Intake Oral 1325 ml Current Medications: Meds: Current Medications Olanzapine (ZyPREXA ZYDIS) 2.5 mg PRN Q2HR PRN PO PSYCHOSIS Last administered on 11/03/18at 12:49; Start 10/30/18 at 17:45 Acetaminophen (Tylenol) 650 mg PRN Q4HRS PRN PO PAIN / TEMP; Start 10/30/18 at 18:00 Al Hydroxide/Mg Hydroxide (Mylanta Plus Xs) 15 ml PRN AFTMEALHC PRN PO DYSPEPSIA; Start 10/30/18 at 18:00 Sertraline HCl (Zoloft) 100 mg DAILY PO Last administered on 11/05/18 07:45; Start 10/31/18 at 09:00 Aspirin (Children'S Aspirin) 81 mg DAILYWBKFT PO Last administered on 11/05/18at 07:44; Start 10/31/18 at 08:00 Docusate Sodium (Colace) 100 mg BID PO Last administered on 11/05/18 19:17; Start 10/30/18 at 21:00 Glimepiride (Amaryl) 1 mg DAILY08 PO Last administered on 11/05/18 07:44; Start 10/31/18 at 08:00 Hydralazine HCl (Apresoline) 10 mg PRN Q4HRS PRN PO HYPERTENSION SEE COMMENTS Last administered on 11/01/18at 06:26; Start 10/30/18 at 21:00; Stop 11/01/18 at 12:54; Status DC Losartan Potassium (Cozaar) 100 mg DAILY PO Last administered on 2/1/19at 07:45 ; Start 10/31/18 at 09:00 Magnesium Hydroxide (Milk Of Magnesia) 2,400 mg PRN QHS PRN PO CONSTIPATION; Start 10/30/18 at 18:45 Melatonin 9 mg QHS PO Last administered on 11/05/18at 19:17; Start 10/30/18 at 21 :00 Memantine (Namenda) 10 mg BID PO Last administered on 11/05/18 19:17; Start at 21:00 Multi-Ingredient Ointment (Analgesic [place]) 1 karey PRN QID PRN TP MUSCLE PAIN; Start 10/30/18 at 18:45 Multivitamins/ Calcium (Thera-M Plus) 1 tab DAILY PO Last administered on at 07:44; Start 10/31/18 at 09:00 Olanzapine (ZyPREXA) 2.5 mg QHS PO Last administered on 11/05/18 19:17; Start 10/30/18 at 21:00 Non-Formulary Medication (Pedi M.vit No.17 With Fluoride (Multivit-Fluor 0.5 Mg Tab Chw)) 0.5 mg DAILY PO ; Start 10/31/18 at 09:00; Status UNV Triamcinolone Acetonide (Kenalog) 1 karey BID TP Last administered on 10/31/18at 07:48; Start 10/30/18 at 21:00; Stop 10/31/18 at 12:34; Status DC Triamcinolone Acetonide (Kenalog) 1 karey PRN BID PRN TP RASH; Start 10/31/18 at 12:45 Hydralazine HCl (Apresoline) 25 mg Q8H PO Last administered on 11/01/18at 14:00 ; Start 11/01/18 at 14:00; Stop 11/01/18 at 17:21; Status DC Divalproex Sodium (Depakote Sprinkles) 125 mg 0900,1700 PO Last administered on 11/05/18 16:21; Start 11/01/18 at 17:00; Stop 11/05/18 at 16:49; Status DC Hydralazine HCl (Apresoline) 50 mg TID PO Last administered on 11/02/18at 13:33 ; Start 11/01/18 at 21:00; Stop 11/02/18 at 15:47; Status DC Hydralazine HCl (Apresoline) 100 mg TID PO Last administered on 11/05/18at 19:17 ; Start 11/02/18 at 21:00 Nifedipine (Procardia Xl) 30 mg BID PO Last administered on 11/03/18at 07:59; Start 11/02/18 at 21:00; Stop 11/03/18 at 12:59; Status DC Mirtazapine (Remeron) 7.5 mg QHS PO Last administered on 11/05/18at 19:18; Start 11/02/18 at 21:00 Nifedipine (Procardia Xl) 60 mg BID PO Last administered on 11/05/18at 19:20; Start 11/03/18 at 21:00 Vitamin D (Vitamin D3) 50,000 unit WEEKLY PO Last administered on 11/03/18at 14: 16; Start 11/03/18 at 13:00 Divalproex Sodium (Depakote Sprinkles) 250 mg 0900,1700 PO ; Start 11/06/18 at 09 :00 Active Scripts Active Hydralazine Hcl 10 Mg Tablet 10 Mg PO PRN Q4HRS PRN 30 Days Reported Multiple Vitamin (Multivitamin With Minerals) 1 Each Tablet 1 Each PO DAILY [place] (Menthol) 113 Gm Gel..gram. 1 Applic TP PRN QID PRN Milk Of Magnesia (Magnesium Hydroxide) 2,400 Mg/10 Ml Oral.susp 2,400 Mg PO PRN QHS PRN Maalox Maximum Strength Susp (Mag Hydrox/Al Hydrox/Simeth) 355 Ml Oral.susp 15 Ml PO PRN AFTMEALHC PRN Tylenol (Acetaminophen) 325 Mg Tablet 650 Mg PO PRN Q4HRS PRN Triamcinolone Acetonide 15 Gm Cream..g. 1 Karey TP BID Zoloft (Sertraline Hcl) 100 Mg Tablet 100 Mg PO DAILY Olanzapine 2.5 Mg Tablet 2.5 Mg PO QHS Multivit-Fluor 0.5 Mg Tab Chw (Pedi M.vit No.17 With Fluoride) 0.5 Mg Tab.chew 0.5 Mg PO DAILY Namenda (Memantine Hcl) 10 Mg Tablet 10 Mg PO BID Melatonin 3 Mg Tablet 9 Mg PO QHS Cozaar (Losartan Potassium) 100 Mg Tablet 100 Mg PO DAILY Glimepiride 1 Mg Tablet 1 Mg PO DAILY Docusate Sodium 100 Mg Capsule 100 Mg PO BID Aspirin 81 Mg Tab.chew 81 Mg PO DAILY I have reviewed the current psychotropics carefully including drug interactions. Risk benefit ratio favors no change other than as noted in my dictated progress note. Diagnosis: Problems: (1) Anxiety disorder (2) Impulse control disorder (3) Frontotemporal dementia with behavioral disturbance (4) Hypertensive urgency ALISHA MICHAELS MD Nov 05, 2018 23:01
--- NOTE | 2018-11-05 23:12 | PN ---
DATE: 11/04/2018 PSYCHIATRIC PROGRESS NOTE This late entry 11/04/2018 covers elements not covered in my initial note. SUBJECTIVE: I met with the patient in the evening and staffed treatment team meeting with the entire team in the morning and the patient's daughter, Ameena, attended. Had lengthy discussion about his diagnosis of frontotemporal dementia, treatment options, current medications. He slept 7-1/2 hours previous night. Appetite 100%. Eats snacks frequently, somewhat disinhibited in this respect. Reviewed information from Dr. Hicks, his primary care physician at [facility]. REVIEW OF SYSTEMS: No CV, , pulmonary, eye, ENT system symptoms on review. Reliability poor. MENTAL STATUS EXAM: Oriented to himself. Insight, judgment, recent and remote memory, attention, concentration, fund of knowledge poor consistent with his diagnosis. IMPRESSION: Major neurocognitive disorder, frontotemporal with delusion, depression, behavioral disturbance; anxiety disorder, unspecified; impulse control disorder, unspecified. Rest unchanged from initial note. PLAN: No change from initial note. MAN Kesha MICHAELS MD DR: MARIA GUADALUPE/steven JOB#: [id number] / [id number]
[2018-11-06 06:19] VITALS: BP 141/84
[2018-11-06] MEDS: ASPIRIN 81 MG TAB.CHEW PO SCH (08:14)
[2018-11-06] MEDS: GLIMEPIRIDE 2 MG TABLET PO SCH (08:14)
[2018-11-06] MEDS: LOSARTAN 50 MG TABLET. PO SCH (08:19)
[2018-11-06] MEDS: DOCUSATE SODIUM 100 MG CAPSULE PO SCH ×2 (08:19→19:12)
[2018-11-06] MEDS: DIVALPROEX 125 MG CAP.SPRINK PO SCH ×2 (08:27→16:42)
[2018-11-06] MEDS: MEMANTINE 10 MG TABLET. PO SCH ×2 (08:27→19:10)
[2018-11-06] MEDS: MULTIVITAMIN with MINERAL TABLET. PO SCH (08:27)
[2018-11-06] MEDS: SERTRALINE 100 MG TABLET. PO SCH (08:27)
[2018-11-06 14:35] VITALS: BP 161/73
[2018-11-06 16:07] VITALS: BP 150/80
[2018-11-06] MEDS: MIRTAZAPINE 7.5 MG TABLET. PO SCH (19:10)
[2018-11-06] MEDS: MELATONIN 3 MG TABLET PO SCH (19:10)
[2018-11-06] MEDS: OLANZapine 2.5 MG TABLET PO SCH (19:10)
--- NOTE | 2018-11-06 22:27 | PDOC ---
Exam Note: Alvin Note: Please also refer to the separate dictated note~for this date of service dictated separately.~Patient seen individually. Discussed the patient with Nursing staff reviewed the chart.~Reviewed interim history and current functioning. Reviewed vital signs,~Labs/ Radiology~and current medications noted below. Continue current treatment with the changes noted in the dictated addendum note Assessment: Vital Signs: Vital Signs Date Time Temp Pulse Resp B/P (MAP) Pulse Ox O2 Delivery O2 Flow Rate FiO2 11/06/18 19:12 86 150/80 11/06/18 16:07 98.1 20 97 Room Air I&O Intake and Output 11/06/18 07:01 Intake Total 960 ml Balance 960 ml Intake Oral 960 ml Current Medications: Meds: Current Medications Olanzapine (ZyPREXA ZYDIS) 2.5 mg PRN Q2HR PRN PO PSYCHOSIS Last administered on 11/03/18at 12:49; Start 10/30/18 at 17:45 Acetaminophen (Tylenol) 650 mg PRN Q4HRS PRN PO PAIN / TEMP; Start 10/30/18 at 18:00 Al Hydroxide/Mg Hydroxide (Mylanta Plus Xs) 15 ml PRN AFTMEALHC PRN PO DYSPEPSIA; Start 10/30/18 at 18:00 Sertraline HCl (Zoloft) 100 mg DAILY PO Last administered on 11/06/18 08:27; Start 10/31/18 at 09:00 Aspirin (Children'S Aspirin) 81 mg DAILYWBKFT PO Last administered on 11/06/18 08:14; Start 10/31/18 at 08:00 Docusate Sodium (Colace) 100 mg BID PO Last administered on 11/06/18 19:12; Start 10/30/18 at 21:00 Glimepiride (Amaryl) 1 mg DAILY08 PO Last administered on 11/06/18 08:14; Start 10/31/18 at 08:00 Hydralazine HCl (Apresoline) 10 mg PRN Q4HRS PRN PO HYPERTENSION SEE COMMENTS Last administered on 11/01/18at 06:26; Start 10/30/18 at 21:00; Stop 11/01/18 at 12:54; Status DC Losartan Potassium (Cozaar) 100 mg DAILY PO Last administered on 11/06/18 08:19 ; Start 10/31/18 at 09:00 Magnesium Hydroxide (Milk Of Magnesia) 2,400 mg PRN QHS PRN PO CONSTIPATION; Start 10/30/18 at 18:45 Melatonin 9 mg QHS PO Last administered on 11/06/18 19:10; Start 10/30/18 at 21 :00 Memantine (Namenda) 10 mg BID PO Last administered on 11/06/18 19:10; Start at 21:00 Multi-Ingredient Ointment (Analgesic [place]) 1 karey PRN QID PRN TP MUSCLE PAIN; Start 10/30/18 at 18:45 Multivitamins/ Calcium (Thera-M Plus) 1 tab DAILY PO Last administered on 08:27; Start 10/31/18 at 09:00 Olanzapine (ZyPREXA) 2.5 mg QHS PO Last administered on 11/06/18 19:10; Start 10/30/18 at 21:00 Non-Formulary Medication (Pedi M.vit No.17 With Fluoride (Multivit-Fluor 0.5 Mg Tab Chw)) 0.5 mg DAILY PO ; Start 10/31/18 at 09:00; Status UNV Triamcinolone Acetonide (Kenalog) 1 karey BID TP Last administered on 10/31/18at 07:48; Start 10/30/18 at 21:00; Stop 10/31/18 at 12:34; Status DC Triamcinolone Acetonide (Kenalog) 1 karey PRN BID PRN TP RASH; Start 10/31/18 at 12:45 Hydralazine HCl (Apresoline) 25 mg Q8H PO Last administered on 11/01/18at 14:00 ; Start 11/01/18 at 14:00; Stop 11/01/18 at 17:21; Status DC Divalproex Sodium (Depakote Sprinkles) 125 mg 0900,1700 PO Last administered on 11/05/18 16:21; Start 11/01/18 at 17:00; Stop 11/05/18 at 16:49; Status DC Hydralazine HCl (Apresoline) 50 mg TID PO Last administered on 11/02/18at 13:33 ; Start 11/01/18 at 21:00; Stop 11/02/18 at 15:47; Status DC Hydralazine HCl (Apresoline) 100 mg TID PO Last administered on 11/06/18 19:10 ; Start 11/02/18 at 21:00 Nifedipine (Procardia Xl) 30 mg BID PO Last administered on 11/03/18 07:59; Start 11/02/18 at 21:00; Stop 11/03/18 at 12:59; Status DC Mirtazapine (Remeron) 7.5 mg QHS PO Last administered on 11/06/18 19:10; Start 11/02/18 at 21:00 Nifedipine (Procardia Xl) 60 mg BID PO Last administered on 11/06/18 19:12; Start 11/03/18 at 21:00 Vitamin D (Vitamin D3) 50,000 unit WEEKLY PO Last administered on 11/03/18 14: 16; Start 11/03/18 at 13:00 Divalproex Sodium (Depakote Sprinkles) 250 mg 0900,1700 PO Last administered on 11/06/18 16:42; Start 11/06/18 at 09:00 Active Scripts Active Hydralazine Hcl 10 Mg Tablet 10 Mg PO PRN Q4HRS PRN 30 Days Reported Multiple Vitamin (Multivitamin With Minerals) 1 Each Tablet 1 Each PO DAILY [place] (Menthol) 113 Gm Gel..gram. 1 Applic TP PRN QID PRN Milk Of Magnesia (Magnesium Hydroxide) 2,400 Mg/10 Ml Oral.susp 2,400 Mg PO PRN QHS PRN Maalox Maximum Strength Susp (Mag Hydrox/Al Hydrox/Simeth) 355 Ml Oral.susp 15 Ml PO PRN AFTMEALHC PRN Tylenol (Acetaminophen) 325 Mg Tablet 650 Mg PO PRN Q4HRS PRN Triamcinolone Acetonide 15 Gm Cream..g. 1 Karey TP BID Zoloft (Sertraline Hcl) 100 Mg Tablet 100 Mg PO DAILY Olanzapine 2.5 Mg Tablet 2.5 Mg PO QHS Multivit-Fluor 0.5 Mg Tab Chw (Pedi M.vit No.17 With Fluoride) 0.5 Mg Tab.chew 0.5 Mg PO DAILY Namenda (Memantine Hcl) 10 Mg Tablet 10 Mg PO BID Melatonin 3 Mg Tablet 9 Mg PO QHS Cozaar (Losartan Potassium) 100 Mg Tablet 100 Mg PO DAILY Glimepiride 1 Mg Tablet 1 Mg PO DAILY Docusate Sodium 100 Mg Capsule 100 Mg PO BID Aspirin 81 Mg Tab.chew 81 Mg PO DAILY I have reviewed the current psychotropics carefully including drug interactions. Risk benefit ratio favors no change other than as noted in my dictated progress note. Diagnosis: Problems: (1) Anxiety disorder (2) Impulse control disorder (3) Frontotemporal dementia with behavioral disturbance (4) Hypertensive urgency ALISHA MICHAELS MD Nov 06, 2018 22:27
[2018-11-07 06:08] VITALS: BP 146/76
[2018-11-07] MEDS: GLIMEPIRIDE 2 MG TABLET PO SCH (07:47)
[2018-11-07] MEDS: DOCUSATE SODIUM 100 MG CAPSULE PO SCH ×2 (07:48→20:21)
[2018-11-07] MEDS: MEMANTINE 10 MG TABLET. PO SCH ×2 (07:48→20:21)
[2018-11-07] MEDS: MULTIVITAMIN with MINERAL TABLET. PO SCH (07:48)
[2018-11-07] MEDS: ASPIRIN 81 MG TAB.CHEW PO SCH (07:48)
[2018-11-07] MEDS: DIVALPROEX 125 MG CAP.SPRINK PO SCH ×2 (07:48→16:49)
[2018-11-07] MEDS: SERTRALINE 100 MG TABLET. PO SCH (07:48)
[2018-11-07] MEDS: LOSARTAN 50 MG TABLET. PO SCH (07:51)
[2018-11-07 14:15] VITALS: BP 174/85
[2018-11-07 16:15] VITALS: BP 165/83
[2018-11-07] MEDS: MIRTAZAPINE 7.5 MG TABLET. PO SCH (20:21)
[2018-11-07] MEDS: MELATONIN 3 MG TABLET PO SCH (20:24)
[2018-11-07] MEDS: OLANZapine 2.5 MG TABLET PO SCH (20:24)
--- NOTE | 2018-11-07 22:29 | PDOC ---
Exam Note: Alvin Note: Please also refer to the separate dictated note~for this date of service dictated separately.~Patient seen individually. Discussed the patient with Nursing staff reviewed the chart.~Reviewed interim history and current functioning. Reviewed vital signs,~Labs/ Radiology~and current medications noted below. Continue current treatment with the changes noted in the dictated addendum note Assessment: Vital Signs: Vital Signs Date Time Temp Pulse Resp B/P (MAP) Pulse Ox O2 Delivery O2 Flow Rate FiO2 11/07/18 20:24 81 165/83 11/07/18 16:15 97.9 20 97 Room Air I&O Intake and Output 11/07/18 07:01 Intake Total 1325 ml Balance 1325 ml Intake Oral 1325 ml Current Medications: Meds: Current Medications Olanzapine (ZyPREXA ZYDIS) 2.5 mg PRN Q2HR PRN PO PSYCHOSIS Last administered on 11/03/18 12:49; Start 10/30/18 at 17:45 Acetaminophen (Tylenol) 650 mg PRN Q4HRS PRN PO PAIN / TEMP; Start 10/30/18 at 18:00 Al Hydroxide/Mg Hydroxide (Mylanta Plus Xs) 15 ml PRN AFTMEALHC PRN PO DYSPEPSIA; Start 10/30/18 at 18:00 Sertraline HCl (Zoloft) 100 mg DAILY PO Last administered on 11/07/18 07:48; Start 10/31/18 at 09:00 Aspirin (Children'S Aspirin) 81 mg DAILYWBKFT PO Last administered on 11/07/18 07:48; Start 10/31/18 at 08:00 Docusate Sodium (Colace) 100 mg BID PO Last administered on 11/07/18 20:21; Start 10/30/18 at 21:00 Glimepiride (Amaryl) 1 mg DAILY08 PO Last administered on 11/07/18 07:47; Start 10/31/18 at 08:00 Hydralazine HCl (Apresoline) 10 mg PRN Q4HRS PRN PO HYPERTENSION SEE COMMENTS Last administered on 11/01/18 06:26; Start 10/30/18 at 21:00; Stop 11/01/18 at 12:54; Status DC Losartan Potassium (Cozaar) 100 mg DAILY PO Last administered on 11/07/18 07:51 ; Start 10/31/18 at 09:00 Magnesium Hydroxide (Milk Of Magnesia) 2,400 mg PRN QHS PRN PO CONSTIPATION; Start 10/30/18 at 18:45 Melatonin 9 mg QHS PO Last administered on 11/07/18 20:24; Start 10/30/18 at 21 :00 Memantine (Namenda) 10 mg BID PO Last administered on 11/07/18 20:21; Start at 21:00 Multi-Ingredient Ointment (Analgesic [place]) 1 karey PRN QID PRN TP MUSCLE PAIN; Start 10/30/18 at 18:45 Multivitamins/ Calcium (Thera-M Plus) 1 tab DAILY PO Last administered on 07:48; Start 10/31/18 at 09:00 Olanzapine (ZyPREXA) 2.5 mg QHS PO Last administered on 11/07/18 20:24; Start 10/30/18 at 21:00 Non-Formulary Medication (Pedi M.vit No.17 With Fluoride (Multivit-Fluor 0.5 Mg Tab Chw)) 0.5 mg DAILY PO ; Start 10/31/18 at 09:00; Status UNV Triamcinolone Acetonide (Kenalog) 1 karey BID TP Last administered on 10/31/18at 07:48; Start 10/30/18 at 21:00; Stop 10/31/18 at 12:34; Status DC Triamcinolone Acetonide (Kenalog) 1 karey PRN BID PRN TP RASH; Start 10/31/18 at 12:45 Hydralazine HCl (Apresoline) 25 mg Q8H PO Last administered on 11/01/18at 14:00 ; Start 11/01/18 at 14:00; Stop 11/01/18 at 17:21; Status DC Divalproex Sodium (Depakote Sprinkles) 125 mg 0900,1700 PO Last administered on 11/05/18 16:21; Start 11/01/18 at 17:00; Stop 11/05/18 at 16:49; Status DC Hydralazine HCl (Apresoline) 50 mg TID PO Last administered on 11/02/18at 13:33 ; Start 11/01/18 at 21:00; Stop 11/02/18 at 15:47; Status DC Hydralazine HCl (Apresoline) 100 mg TID PO Last administered on 11/07/18 20:24 ; Start 11/02/18 at 21:00 Nifedipine (Procardia Xl) 30 mg BID PO Last administered on 11/03/18 07:59; Start 11/02/18 at 21:00; Stop 11/03/18 at 12:59; Status DC Mirtazapine (Remeron) 7.5 mg QHS PO Last administered on 11/07/18 20:21; Start 11/02/18 at 21:00 Nifedipine (Procardia Xl) 60 mg BID PO Last administered on 11/07/18 20:23; Start 11/03/18 at 21:00 Vitamin D (Vitamin D3) 50,000 unit WEEKLY PO Last administered on 11/03/18 14: 16; Start 11/03/18 at 13:00 Divalproex Sodium (Depakote Sprinkles) 250 mg 0900,1700 PO Last administered on 11/07/18 16:49; Start 11/06/18 at 09:00 Active Scripts Active Hydralazine Hcl 10 Mg Tablet 10 Mg PO PRN Q4HRS PRN 30 Days Reported Multiple Vitamin (Multivitamin With Minerals) 1 Each Tablet 1 Each PO DAILY Bengay (Menthol) 113 Gm Gel..gram. 1 Applic TP PRN QID PRN Milk Of Magnesia (Magnesium Hydroxide) 2,400 Mg/10 Ml Oral.susp 2,400 Mg PO PRN QHS PRN Maalox Maximum Strength Susp (Mag Hydrox/Al Hydrox/Simeth) 355 Ml Oral.susp 15 Ml PO PRN AFTMEALHC PRN Tylenol (Acetaminophen) 325 Mg Tablet 650 Mg PO PRN Q4HRS PRN Triamcinolone Acetonide 15 Gm Cream..g. 1 Karey TP BID Zoloft (Sertraline Hcl) 100 Mg Tablet 100 Mg PO DAILY Olanzapine 2.5 Mg Tablet 2.5 Mg PO QHS Multivit-Fluor 0.5 Mg Tab Chw (Pedi M.vit No.17 With Fluoride) 0.5 Mg Tab.chew 0.5 Mg PO DAILY Namenda (Memantine Hcl) 10 Mg Tablet 10 Mg PO BID Melatonin 3 Mg Tablet 9 Mg PO QHS Cozaar (Losartan Potassium) 100 Mg Tablet 100 Mg PO DAILY Glimepiride 1 Mg Tablet 1 Mg PO DAILY Docusate Sodium 100 Mg Capsule 100 Mg PO BID Aspirin 81 Mg Tab.chew 81 Mg PO DAILY I have reviewed the current psychotropics carefully including drug interactions. Risk benefit ratio favors no change other than as noted in my dictated progress note. Diagnosis: Problems: (1) Anxiety disorder (2) Impulse control disorder (3) Frontotemporal dementia with behavioral disturbance (4) Hypertensive urgency ALISHA MICHAELS MD Nov 07, 2018 22:29
--- NOTE | 2018-11-07 23:18 | PN ---
DATE: 11/07/2018 This is a late entry for 11/05/2018 and covers elements not covered in my initial note. SUBJECTIVE: I met with the patient in the evening. The patient slept 5-1/2 hours previous night. He remains confused, attempting to leave, oblivious of where he is. Valproic acid level is 13. REVIEW OF SYSTEMS: No CV, , pulmonary, eye, ENT system symptoms on review. MENTAL STATUS EXAM: Oriented to himself. Insight, judgment, recent and remote memory, attention, concentration, fund of knowledge poor, consistent with his diagnosis. IMPRESSION: Major neurocognitive disorder, frontotemporal with delusion, depression, behavioral disturbance. Rest unchanged. PLAN: Valproic acid level is therapeutic on Depakote Sprinkles 125 mg twice a day. Level is 13. We will increase the Depakote to 250 mg twice a day. Check CBC, CMP, valproic acid level in 3 days. Rest unchanged from initial note. MAN Kesha MICHAELS MD DR: MARIA GUADALUPE/steven JOB#: [id number] / [id number]
[2018-11-08 06:14] VITALS: BP 176/89
[2018-11-08 07:30] LABS: BASO # 0.1 x10^3/uL (0.0-0.2); BASO % 1 % (0-3); EOS # 0.3 x10^3/uL (0.0-0.7); EOS % 9 % (0-3); HEMATOCRIT 40.4 % (39.0-53.0); HEMOGLOBIN 13.6 g/dL (13.0-17.5); LYMPH % 23 % (24-48); MEAN CORPUSCULAR HEMOGLOBIN 31 pg (25-35); MEAN CORPUSCULAR HGB CONC 34 g/dL (31-37); MEAN CORPUSCULAR VOLUME 92 fL (79-100); MONO # 0.4 x10^3/uL (0.0-1.1); MONO % 11 % (0-9); NEUT # 2.3 x10^3uL (1.8-7.7); NEUT % 56 % (31-73); PLATELET COUNT 291 x10^3/uL (140-400); RED CELL DISTRIBUTION WIDTH 13.2 % (11.5-14.5); WHITE BLOOD COUNT 4.1 x10^3/uL (4.0-11.0)
[2018-11-08 07:40] LABS: ALBUMIN 3.7 g/dL (3.4-5.0); ALBUMIN/GLOBULIN RATIO 0.9 (1.0-1.7); ALK PHOS 78 U/L (46-116); ALT (SGPT) 33 U/L (16-63); ANION GAP 8 (6-14); AST (SGOT) 27 U/L (15-37); BLOOD UREA NITROGEN 20 mg/dL (8-26); BUN/CREATININE RATIO 15 (6-20); CALCIUM 9.1 mg/dL (8.5-10.1); CARBON DIOXIDE 31 mmol/L (21-32); CHLORIDE 107 mmol/L (98-107); CREATININE 1.3 mg/dL (0.7-1.3); GFR 66.4; GLUCOSE 96 mg/dL (70-99); POTASSIUM 3.8 mmol/L (3.5-5.1); SODIUM 146 mmol/L (136-145); TOTAL BILIRUBIN 0.3 mg/dL (0.2-1.0); TOTAL PROTEIN 7.7 g/dL (6.4-8.2)
[2018-11-08 07:50] LABS: VAL ACID 29 mcg/mL (50-100)
[2018-11-08] MEDS: ASPIRIN 81 MG TAB.CHEW PO SCH ×2 (08:23→08:25)
[2018-11-08] MEDS: GLIMEPIRIDE 2 MG TABLET PO SCH (08:23)
[2018-11-08] MEDS: MEMANTINE 10 MG TABLET. PO SCH ×2 (08:24→20:48)
[2018-11-08] MEDS: SERTRALINE 100 MG TABLET. PO SCH (08:24)
[2018-11-08] MEDS: DIVALPROEX 125 MG CAP.SPRINK PO SCH ×2 (08:25→16:37)
[2018-11-08] MEDS: MULTIVITAMIN with MINERAL TABLET. PO SCH (08:25)
[2018-11-08] MEDS: DOCUSATE SODIUM 100 MG CAPSULE PO SCH ×2 (08:25→20:48)
[2018-11-08] MEDS: LOSARTAN 50 MG TABLET. PO SCH (08:25)
[2018-11-08 16:17] VITALS: BP 172/81
--- NOTE | 2018-11-08 20:37 | PN ---
DATE: 11/06/2018 PSYCHIATRIC PROGRESS NOTE This is a late entry 11/06/2018 covers elements not covered in my initial note. SUBJECTIVE: I met with the patient in the evening. The patient slept 7-1/4 hours previous night. He has been wandering, exit seeking, confused, not aggressive. Labs are due on 11/08/2018 for the Depakote level and then we will adjust it further. REVIEW OF SYSTEMS: No CV, , pulmonary, eye, ENT system symptoms on review. Reliability poor. MENTAL STATUS EXAM: Oriented to self. Insight, judgment, recent and remote memory, attention, concentration, fund of knowledge poor, consistent with his diagnosis. IMPRESSION: Major neurocognitive disorder, frontotemporal with delusion, depression, behavioral disturbance. Rest unchanged. PLAN: Check labs on 11/07/2018. Continue rest unchanged. MAN Kesha MICHAELS MD DR: MARIA GUADALUPE/steven JOB#: [id number] / [id number]
[2018-11-08] MEDS: OLANZapine 2.5 MG TABLET PO SCH (20:48)
[2018-11-08] MEDS: MELATONIN 3 MG TABLET PO SCH (20:48)
[2018-11-08] MEDS: MIRTAZAPINE 7.5 MG TABLET. PO SCH (20:48)
--- NOTE | 2018-11-08 22:35 | PDOC ---
Exam Note: Alvin Note: Please also refer to the separate dictated note~for this date of service dictated separately.~Patient seen individually. Discussed the patient with Nursing staff reviewed the chart.~Reviewed interim history and current functioning. Reviewed vital signs,~Labs/ Radiology~and current medications noted below. Continue current treatment with the changes noted in the dictated addendum note Assessment: Vital Signs: Vital Signs Date Time Temp Pulse Resp B/P (MAP) Pulse Ox O2 Delivery O2 Flow Rate FiO2 11/08/18 20:51 83 172/81 11/08/18 16:17 98.1 17 96 11/07/18 16:15 Room Air I&O Intake and Output 11/08/18 07:01 Intake Total 1320 ml Balance 1320 ml Intake Oral 1320 ml Labs: Laboratory Tests Test 11/08/18 07:05 White Blood Count 4.1 x10^3/uL (4.0-11.0) Red Blood Count 4.40 x10^6/uL (4.30-5.70) Hemoglobin 13.6 g/dL (13.0-17.5) Hematocrit 40.4 % (39.0-53.0) Mean Corpuscular Volume 92 fL (79-100) Mean Corpuscular Hemoglobin 31 pg (25-35) Mean Corpuscular Hemoglobin Concent 34 g/dL (31-37) Red Cell Distribution Width 13.2 % (11.5-14.5) Platelet Count 291 x10^3/uL (140-400) Neutrophils (%) (Auto) 56 % (31-73) Lymphocytes (%) (Auto) 23 % (24-48) L Monocytes (%) (Auto) 11 % (0-9) H Eosinophils (%) (Auto) 9 % (0-3) H Basophils (%) (Auto) 1 % (0-3) Neutrophils # (Auto) 2.3 x10^3uL (1.8-7.7) Lymphocytes # (Auto) 1.0 x10^3/uL (1.0-4.8) Monocytes # (Auto) 0.4 x10^3/uL (0.0-1.1) Eosinophils # (Auto) 0.3 x10^3/uL (0.0-0.7) Basophils # (Auto) 0.1 x10^3/uL (0.0-0.2) Sodium Level 146 mmol/L (136-145) H Potassium Level 3.8 mmol/L (3.5-5.1) Chloride Level 107 mmol/L (98-107) Carbon Dioxide Level 31 mmol/L (21-32) Anion Gap 8 (6-14) Blood Urea Nitrogen 20 mg/dL (8-26) Creatinine 1.3 mg/dL (0.7-1.3) Estimated GFR (Cockcroft-Gault) 66.4 BUN/Creatinine Ratio 15 (6-20) Glucose Level 96 mg/dL (70-99) Calcium Level 9.1 mg/dL (8.5-10.1) Total Bilirubin 0.3 mg/dL (0.2-1.0) Aspartate Amino Transferase (AST) 27 U/L (15-37) Alanine Aminotransferase (ALT) 33 U/L (16-63) Alkaline Phosphatase 78 U/L (46-116) Total Protein 7.7 g/dL (6.4-8.2) Albumin 3.7 g/dL (3.4-5.0) Albumin/Globulin Ratio 0.9 (1.0-1.7) L Valproic Acid Level 29 mcg/mL (50-100) L Valproic Acid Last Dose Date 11/07/2018 Valproic Acid Last Dose Time 2100 Current Medications: Meds: Current Medications Olanzapine (ZyPREXA ZYDIS) 2.5 mg PRN Q2HR PRN PO PSYCHOSIS Last administered on 11/08/18at 14:46; Start 10/30/18 at 17:45 Acetaminophen (Tylenol) 650 mg PRN Q4HRS PRN PO PAIN / TEMP; Start 10/30/18 at 18:00 Al Hydroxide/Mg Hydroxide (Mylanta Plus Xs) 15 ml PRN AFTMEALHC PRN PO DYSPEPSIA; Start 10/30/18 at 18:00 Sertraline HCl (Zoloft) 100 mg DAILY PO Last administered on 11/08/18 08:24; Start 10/31/18 at 09:00 Aspirin (Children'S Aspirin) 81 mg DAILYWBKFT PO Last administered on 11/08/18 08:25; Start 10/31/18 at 08:00 Docusate Sodium (Colace) 100 mg BID PO Last administered on 11/08/18 20:48; Start 10/30/18 at 21:00 Glimepiride (Amaryl) 1 mg DAILY08 PO Last administered on 11/08/18 08:23; Start 10/31/18 at 08:00 Hydralazine HCl (Apresoline) 10 mg PRN Q4HRS PRN PO HYPERTENSION SEE COMMENTS Last administered on 11/01/18 06:26; Start 10/30/18 at 21:00; Stop 11/01/18 at 12:54; Status DC Losartan Potassium (Cozaar) 100 mg DAILY PO Last administered on 11/08/18 08:25 ; Start 10/31/18 at 09:00 Magnesium Hydroxide (Milk Of Magnesia) 2,400 mg PRN QHS PRN PO CONSTIPATION; Start 10/30/18 at 18:45 Melatonin 9 mg QHS PO Last administered on 11/08/18 20:48; Start 10/30/18 at 21 :00 Memantine (Namenda) 10 mg BID PO Last administered on 11/08/18 20:48; Start at 21:00 Multi-Ingredient Ointment (Analgesic [place]) 1 karey PRN QID PRN TP MUSCLE PAIN; Start 10/30/18 at 18:45 Multivitamins/ Calcium (Thera-M Plus) 1 tab DAILY PO Last administered on 08:25; Start 10/31/18 at 09:00 Olanzapine (ZyPREXA) 2.5 mg QHS PO Last administered on 11/08/18 20:48; Start 10/30/18 at 21:00 Non-Formulary Medication (Pedi M.vit No.17 With Fluoride (Multivit-Fluor 0.5 Mg Tab Chw)) 0.5 mg DAILY PO ; Start 10/31/18 at 09:00; Status UNV Triamcinolone Acetonide (Kenalog) 1 karey BID TP Last administered on 10/31/18 07:48; Start 10/30/18 at 21:00; Stop 10/31/18 at 12:34; Status DC Triamcinolone Acetonide (Kenalog) 1 karey PRN BID PRN TP RASH; Start 10/31/18 at 12:45 Hydralazine HCl (Apresoline) 25 mg Q8H PO Last administered on 11/01/18 14:00 ; Start 11/01/18 at 14:00; Stop 11/01/18 at 17:21; Status DC Divalproex Sodium (Depakote Sprinkles) 125 mg 0900,1700 PO Last administered on 11/05/18 16:21; Start 11/01/18 at 17:00; Stop 11/05/18 at 16:49; Status DC Hydralazine HCl (Apresoline) 50 mg TID PO Last administered on 11/02/18at 13:33 ; Start 11/01/18 at 21:00; Stop 11/02/18 at 15:47; Status DC Hydralazine HCl (Apresoline) 100 mg TID PO Last administered on 11/08/18 20:48 ; Start 11/02/18 at 21:00 Nifedipine (Procardia Xl) 30 mg BID PO Last administered on 11/03/18 07:59; Start 11/02/18 at 21:00; Stop 11/03/18 at 12:59; Status DC Mirtazapine (Remeron) 7.5 mg QHS PO Last administered on 11/08/18 20:48; Start 11/02/18 at 21:00 Nifedipine (Procardia Xl) 60 mg BID PO Last administered on 11/08/18 20:51; Start 11/03/18 at 21:00 Vitamin D (Vitamin D3) 50,000 unit WEEKLY PO Last administered on 11/03/18 14: 16; Start 11/03/18 at 13:00 Divalproex Sodium (Depakote Sprinkles) 250 mg 0900,1700 PO Last administered on 11/08/18 16:37; Start 11/06/18 at 09:00; Stop 11/08/18 at 18:11; Status DC Divalproex Sodium (Depakote Sprinkles) 375 mg 0900,1700 PO ; Start 11/09/18 at 09 :00 Active Scripts Active Hydralazine Hcl 10 Mg Tablet 10 Mg PO PRN Q4HRS PRN 30 Days Reported Multiple Vitamin (Multivitamin With Minerals) 1 Each Tablet 1 Each PO DAILY Bengay (Menthol) 113 Gm Gel..gram. 1 Applic TP PRN QID PRN Milk Of Magnesia (Magnesium Hydroxide) 2,400 Mg/10 Ml Oral.susp 2,400 Mg PO PRN QHS PRN Maalox Maximum Strength Susp (Mag Hydrox/Al Hydrox/Simeth) 355 Ml Oral.susp 15 Ml PO PRN AFTMEALHC PRN Tylenol (Acetaminophen) 325 Mg Tablet 650 Mg PO PRN Q4HRS PRN Triamcinolone Acetonide 15 Gm Cream..g. 1 Karey TP BID Zoloft (Sertraline Hcl) 100 Mg Tablet 100 Mg PO DAILY Olanzapine 2.5 Mg Tablet 2.5 Mg PO QHS Multivit-Fluor 0.5 Mg Tab Chw (Pedi M.vit No.17 With Fluoride) 0.5 Mg Tab.chew 0.5 Mg PO DAILY Namenda (Memantine Hcl) 10 Mg Tablet 10 Mg PO BID Melatonin 3 Mg Tablet 9 Mg PO QHS Cozaar (Losartan Potassium) 100 Mg Tablet 100 Mg PO DAILY Glimepiride 1 Mg Tablet 1 Mg PO DAILY Docusate Sodium 100 Mg Capsule 100 Mg PO BID Aspirin 81 Mg Tab.chew 81 Mg PO DAILY I have reviewed the current psychotropics carefully including drug interactions. Risk benefit ratio favors no change other than as noted in my dictated progress note. Diagnosis: Problems: (1) Anxiety disorder (2) Impulse control disorder (3) Frontotemporal dementia with behavioral disturbance (4) Hypertensive urgency ALISHA MICHAELS MD Nov 08, 2018 22:34
--- NOTE | 2018-11-09 00:43 | PN ---
DATE: 11/07/2018 PSYCHIATRIC PROGRESS NOTE This late entry, 11/07/2018, covers elements not covered in my initial note. SUBJECTIVE: I met with the patient in the evening. The patient slept 6-3/4 hours previous night. He has been exit seeking, but not aggressive and does redirect. REVIEW OF SYSTEMS: No CV, , pulmonary, eye, ENT system symptoms on review. Oblivious to his surroundings pleasant, smiling as I met with him, but unaware of anything around him. MENTAL STATUS EXAM: Oriented to himself. Insight, judgment, recent and remote memory, attention, concentration, fund of knowledge poor, consistent with his diagnosis mentioned in my initial note. PLAN: No change from initial note. Check valproic acid level on 11/08 and adjust Depakote thereafter. MAN Kesha MICHAELS MD DR: MARIA GUADALUPE/steven JOB#: [id number] / [id number]
[2018-11-09 06:18] VITALS: BP 167/76
[2018-11-09] MEDS: SERTRALINE 100 MG TABLET. PO SCH (08:54)
[2018-11-09] MEDS: LOSARTAN 50 MG TABLET. PO SCH (08:54)
[2018-11-09] MEDS: MEMANTINE 10 MG TABLET. PO SCH ×2 (08:54→19:20)
[2018-11-09] MEDS: GLIMEPIRIDE 2 MG TABLET PO SCH (08:55)
[2018-11-09] MEDS: DOCUSATE SODIUM 100 MG CAPSULE PO SCH ×2 (08:55→19:20)
[2018-11-09] MEDS: DIVALPROEX 125 MG CAP.SPRINK PO SCH ×2 (09:00→17:11)
[2018-11-09] MEDS: MULTIVITAMIN with MINERAL TABLET. PO SCH (09:05)
[2018-11-09 17:08] VITALS: BP 160/91
[2018-11-09] MEDS: MIRTAZAPINE 7.5 MG TABLET. PO SCH (19:19)
[2018-11-09] MEDS: OLANZapine 2.5 MG TABLET PO SCH (19:20)
[2018-11-09] MEDS: MELATONIN 3 MG TABLET PO SCH (19:20)
--- NOTE | 2018-11-09 22:52 | PDOC ---
Exam Note: Alvin Note: Please also refer to the separate dictated note~for this date of service dictated separately.~Patient seen individually. Discussed the patient with Nursing staff reviewed the chart.~Reviewed interim history and current functioning. Reviewed vital signs,~Labs/ Radiology~and current medications noted below. Continue current treatment with the changes noted in the dictated addendum note Assessment: Vital Signs: Vital Signs Date Time Temp Pulse Resp B/P (MAP) Pulse Ox O2 Delivery O2 Flow Rate FiO2 11/09/18 19:21 69 160/91 11/09/18 17:08 97.8 18 98 11/07/18 16:15 Room Air I&O Intake and Output 11/09/18 07:01 Intake Total 1320 ml Balance 1320 ml Intake Oral 1320 ml Labs: Laboratory Tests Test 11/09/18 07:55 Glucose (Fingerstick) 141 mg/dL (70-99) H Current Medications: Meds: Current Medications Olanzapine (ZyPREXA ZYDIS) 2.5 mg PRN Q2HR PRN PO PSYCHOSIS Last administered on 11/08/18 14:46; Start 10/30/18 at 17:45 Acetaminophen (Tylenol) 650 mg PRN Q4HRS PRN PO PAIN / TEMP; Start 10/30/18 at 18:00 Al Hydroxide/Mg Hydroxide (Mylanta Plus Xs) 15 ml PRN AFTMEALHC PRN PO DYSPEPSIA; Start 10/30/18 at 18:00 Sertraline HCl (Zoloft) 100 mg DAILY PO Last administered on 11/09/18 08:54; Start 10/31/18 at 09:00 Aspirin (Children'S Aspirin) 81 mg DAILYWBKFT PO Last administered on 11/08/18 08:25; Start 10/31/18 at 08:00 Docusate Sodium (Colace) 100 mg BID PO Last administered on 11/09/18 19:20; Start 10/30/18 at 21:00 Glimepiride (Amaryl) 1 mg DAILY08 PO Last administered on 11/09/18 08:55; Start 10/31/18 at 08:00 Hydralazine HCl (Apresoline) 10 mg PRN Q4HRS PRN PO HYPERTENSION SEE COMMENTS Last administered on 11/01/18at 06:26; Start 10/30/18 at 21:00; Stop 11/01/18 at 12:54; Status DC Losartan Potassium (Cozaar) 100 mg DAILY PO Last administered on 11/09/18at 08:54 ; Start 10/31/18 at 09:00 Magnesium Hydroxide (Milk Of Magnesia) 2,400 mg PRN QHS PRN PO CONSTIPATION; Start 10/30/18 at 18:45 Melatonin 9 mg QHS PO Last administered on 11/09/18 19:20; Start 10/30/18 at 21 :00 Memantine (Namenda) 10 mg BID PO Last administered on 11/09/18 19:20; Start at 21:00 Multi-Ingredient Ointment (Analgesic [place]) 1 karey PRN QID PRN TP MUSCLE PAIN; Start 10/30/18 at 18:45 Multivitamins/ Calcium (Thera-M Plus) 1 tab DAILY PO Last administered on at 09:05; Start 10/31/18 at 09:00 Olanzapine (ZyPREXA) 2.5 mg QHS PO Last administered on 11/09/18at 19:20; Start 10/30/18 at 21:00 Non-Formulary Medication (Pedi M.vit No.17 With Fluoride (Multivit-Fluor 0.5 Mg Tab Chw)) 0.5 mg DAILY PO ; Start 10/31/18 at 09:00; Status UNV Triamcinolone Acetonide (Kenalog) 1 karey BID TP Last administered on 10/31/18at 07:48; Start 10/30/18 at 21:00; Stop 10/31/18 at 12:34; Status DC Triamcinolone Acetonide (Kenalog) 1 karey PRN BID PRN TP RASH; Start 10/31/18 at 12:45 Hydralazine HCl (Apresoline) 25 mg Q8H PO Last administered on 11/01/18at 14:00 ; Start 11/01/18 at 14:00; Stop 11/01/18 at 17:21; Status DC Divalproex Sodium (Depakote Sprinkles) 125 mg 0900,1700 PO Last administered on 11/05/18at 16:21; Start 11/01/18 at 17:00; Stop 11/05/18 at 16:49; Status DC Hydralazine HCl (Apresoline) 50 mg TID PO Last administered on 11/02/18at 13:33 ; Start 11/01/18 at 21:00; Stop 11/02/18 at 15:47; Status DC Hydralazine HCl (Apresoline) 100 mg TID PO Last administered on 11/09/18 19:20 ; Start 11/02/18 at 21:00 Nifedipine (Procardia Xl) 30 mg BID PO Last administered on 11/03/18at 07:59; Start 11/02/18 at 21:00; Stop 11/03/18 at 12:59; Status DC Mirtazapine (Remeron) 7.5 mg QHS PO Last administered on 11/09/18 19:19; Start 11/02/18 at 21:00 Nifedipine (Procardia Xl) 60 mg BID PO Last administered on 11/09/18 19:21; Start 11/03/18 at 21:00 Vitamin D (Vitamin D3) 50,000 unit WEEKLY PO Last administered on 11/03/18at 14: 16; Start 11/03/18 at 13:00 Divalproex Sodium (Depakote Sprinkles) 250 mg 0900,1700 PO Last administered on 11/08/18 16:37; Start 11/06/18 at 09:00; Stop 11/08/18 at 18:11; Status DC Divalproex Sodium (Depakote Sprinkles) 375 mg 0900,1700 PO Last administered on 11/09/18 17:11; Start 11/09/18 at 09:00 Active Scripts Active Hydralazine Hcl 10 Mg Tablet 10 Mg PO PRN Q4HRS PRN 30 Days Reported Multiple Vitamin (Multivitamin With Minerals) 1 Each Tablet 1 Each PO DAILY Bengay (Menthol) 113 Gm Gel..gram. 1 Applic TP PRN QID PRN Milk Of Magnesia (Magnesium Hydroxide) 2,400 Mg/10 Ml Oral.susp 2,400 Mg PO PRN QHS PRN Maalox Maximum Strength Susp (Mag Hydrox/Al Hydrox/Simeth) 355 Ml Oral.susp 15 Ml PO PRN AFTMEALHC PRN Tylenol (Acetaminophen) 325 Mg Tablet 650 Mg PO PRN Q4HRS PRN Triamcinolone Acetonide 15 Gm Cream..g. 1 Karey TP BID Zoloft (Sertraline Hcl) 100 Mg Tablet 100 Mg PO DAILY Olanzapine 2.5 Mg Tablet 2.5 Mg PO QHS Multivit-Fluor 0.5 Mg Tab Chw (Pedi M.vit No.17 With Fluoride) 0.5 Mg Tab.chew 0.5 Mg PO DAILY Namenda (Memantine Hcl) 10 Mg Tablet 10 Mg PO BID Melatonin 3 Mg Tablet 9 Mg PO QHS Cozaar (Losartan Potassium) 100 Mg Tablet 100 Mg PO DAILY Glimepiride 1 Mg Tablet 1 Mg PO DAILY Docusate Sodium 100 Mg Capsule 100 Mg PO BID Aspirin 81 Mg Tab.chew 81 Mg PO DAILY I have reviewed the current psychotropics carefully including drug interactions. Risk benefit ratio favors no change other than as noted in my dictated progress note. Diagnosis: Problems: (1) Anxiety disorder (2) Impulse control disorder (3) Frontotemporal dementia with behavioral disturbance (4) Hypertensive urgency ALISHA MICHAELS MD Nov 09, 2018 22:52
--- NOTE | 2018-11-09 23:27 | PN ---
DATE: 11/08/2018 PSYCHIATRIC PROGRESS NOTE This late entry, 11/08/2018, covers elements not covered in my initial note. I met with the patient in the evening. The patient slept 6-3/4 hours previous night. He was pacing and exit seeking at night with increased agitation. Received Zyprexa at 2:45 p.m. then did better, compliant with medications later. Valproic acid level 29. REVIEW OF SYSTEMS: No CV, , pulmonary, eye, ENT system symptoms on review. Reliability poor. MENTAL STATUS EXAM: Oriented to himself. Insight, judgment, recent and remote memory, attention, concentration, and fund of knowledge poor, consistent with his diagnosis mentioned in my initial note. PLAN: Increase Depakote from 250 b.i.d. to 375 b.i.d. Check CBC, CMP, valproic acid level in 3 days to reach therapeutic level. Rest unchanged from initial note. MAN Kesha MICHAELS MD DR: MARIA GUADALUPE/steven JOB#: [id number] / [id number]
[2018-11-10 05:54] VITALS: BP 151/82
[2018-11-10] MEDS: ASPIRIN 81 MG TAB.CHEW PO SCH (08:21)
[2018-11-10] MEDS: GLIMEPIRIDE 2 MG TABLET PO SCH (08:21)
[2018-11-10] MEDS: DOCUSATE SODIUM 100 MG CAPSULE PO SCH ×2 (08:22→19:22)
[2018-11-10] MEDS: MEMANTINE 10 MG TABLET. PO SCH ×2 (08:27→19:22)
[2018-11-10] MEDS: DIVALPROEX 125 MG CAP.SPRINK PO SCH ×2 (08:27→17:15)
[2018-11-10] MEDS: LOSARTAN 50 MG TABLET. PO SCH (08:27)
[2018-11-10] MEDS: CHOLECALCIFEROL (VITAMIN D3) 50,000 UNIT CAPSULE PO SCH (08:30)
[2018-11-10] MEDS: SERTRALINE 100 MG TABLET. PO SCH (08:30)
[2018-11-10] MEDS: MULTIVITAMIN with MINERAL TABLET. PO SCH (08:32)
[2018-11-10 14:27] VITALS: BP 137/79
[2018-11-10 16:05] VITALS: BP 175/91
[2018-11-10] MEDS: MIRTAZAPINE 7.5 MG TABLET. PO SCH (19:22)
[2018-11-10] MEDS: OLANZapine 2.5 MG TABLET PO SCH (19:22)
[2018-11-10] MEDS: MELATONIN 3 MG TABLET PO SCH (19:25)
--- NOTE | 2018-11-10 22:51 | PDOC ---
Exam Note: Alvin Note: Please also refer to the separate dictated note~for this date of service dictated separately.~Patient seen individually. Discussed the patient with Nursing staff reviewed the chart.~Reviewed interim history and current functioning. Reviewed vital signs,~Labs/ Radiology~and current medications noted below. Continue current treatment with the changes noted in the dictated addendum note Assessment: Vital Signs: Vital Signs Date Time Temp Pulse Resp B/P (MAP) Pulse Ox O2 Delivery O2 Flow Rate FiO2 11/10/18 19:24 82 175/91 11/10/18 16:05 97.4 16 97 11/07/18 16:15 Room Air I&O Intake and Output 11/10/18 07:01 Intake Total 1320 ml Balance 1320 ml Intake Oral 1320 ml # Voids 1 Labs: Laboratory Tests Test 11/10/18 07:16 Glucose (Fingerstick) 128 mg/dL (70-99) H Current Medications: Meds: Current Medications Olanzapine (ZyPREXA ZYDIS) 2.5 mg PRN Q2HR PRN PO PSYCHOSIS Last administered on 11/08/18at 14:46; Start 10/30/18 at 17:45 Acetaminophen (Tylenol) 650 mg PRN Q4HRS PRN PO PAIN / TEMP; Start 10/30/18 at 18:00 Al Hydroxide/Mg Hydroxide (Mylanta Plus Xs) 15 ml PRN AFTMEALHC PRN PO DYSPEPSIA; Start 10/30/18 at 18:00 Sertraline HCl (Zoloft) 100 mg DAILY PO Last administered on 11/10/18 08:30; Start 10/31/18 at 09:00 Aspirin (Children'S Aspirin) 81 mg DAILYWBKFT PO Last administered on 11/10/18 08:21; Start 10/31/18 at 08:00 Docusate Sodium (Colace) 100 mg BID PO Last administered on 11/10/18 19:22; Start 10/30/18 at 21:00 Glimepiride (Amaryl) 1 mg DAILY08 PO Last administered on 11/10/18 08:21; Start 10/31/18 at 08:00 Hydralazine HCl (Apresoline) 10 mg PRN Q4HRS PRN PO HYPERTENSION SEE COMMENTS Last administered on 11/01/18at 06:26; Start 10/30/18 at 21:00; Stop 11/01/18 at 12:54; Status DC Losartan Potassium (Cozaar) 100 mg DAILY PO Last administered on 11/10/18 08:27 ; Start 10/31/18 at 09:00 Magnesium Hydroxide (Milk Of Magnesia) 2,400 mg PRN QHS PRN PO CONSTIPATION; Start 10/30/18 at 18:45 Melatonin 9 mg QHS PO Last administered on 11/10/18 19:25; Start 10/30/18 at 21 :00 Memantine (Namenda) 10 mg BID PO Last administered on 11/10/18 19:22; Start at 21:00 Multi-Ingredient Ointment (Analgesic [place]) 1 karey PRN QID PRN TP MUSCLE PAIN; Start 10/30/18 at 18:45 Multivitamins/ Calcium (Thera-M Plus) 1 tab DAILY PO Last administered on 08:32; Start 10/31/18 at 09:00 Olanzapine (ZyPREXA) 2.5 mg QHS PO Last administered on 11/10/18 19:22; Start 10/30/18 at 21:00 Non-Formulary Medication (Pedi M.vit No.17 With Fluoride (Multivit-Fluor 0.5 Mg Tab Chw)) 0.5 mg DAILY PO ; Start 10/31/18 at 09:00; Status UNV Triamcinolone Acetonide (Kenalog) 1 karey BID TP Last administered on 10/31/18at 07:48; Start 10/30/18 at 21:00; Stop 10/31/18 at 12:34; Status DC Triamcinolone Acetonide (Kenalog) 1 karey PRN BID PRN TP RASH; Start 10/31/18 at 12:45 Hydralazine HCl (Apresoline) 25 mg Q8H PO Last administered on 11/01/18at 14:00 ; Start 11/01/18 at 14:00; Stop 11/01/18 at 17:21; Status DC Divalproex Sodium (Depakote Sprinkles) 125 mg 0900,1700 PO Last administered on 11/05/18 16:21; Start 11/01/18 at 17:00; Stop 11/05/18 at 16:49; Status DC Hydralazine HCl (Apresoline) 50 mg TID PO Last administered on 11/02/18at 13:33 ; Start 11/01/18 at 21:00; Stop 11/02/18 at 15:47; Status DC Hydralazine HCl (Apresoline) 100 mg TID PO Last administered on 11/10/18 19:23 ; Start 11/02/18 at 21:00 Nifedipine (Procardia Xl) 30 mg BID PO Last administered on 11/03/18at 07:59; Start 11/02/18 at 21:00; Stop 11/03/18 at 12:59; Status DC Mirtazapine (Remeron) 7.5 mg QHS PO Last administered on 11/10/18 19:22; Start 11/02/18 at 21:00 Nifedipine (Procardia Xl) 60 mg BID PO Last administered on 11/10/18 19:24; Start 11/03/18 at 21:00 Vitamin D (Vitamin D3) 50,000 unit WEEKLY PO Last administered on 11/10/18 08: 30; Start 11/03/18 at 13:00 Divalproex Sodium (Depakote Sprinkles) 250 mg 0900,1700 PO Last administered on 11/08/18 16:37; Start 11/06/18 at 09:00; Stop 11/08/18 at 18:11; Status DC Divalproex Sodium (Depakote Sprinkles) 375 mg 0900,1700 PO Last administered on 11/10/18at 17:15; Start 11/09/18 at 09:00 Active Scripts Active Hydralazine Hcl 10 Mg Tablet 10 Mg PO PRN Q4HRS PRN 30 Days Reported Multiple Vitamin (Multivitamin With Minerals) 1 Each Tablet 1 Each PO DAILY Bengay (Menthol) 113 Gm Gel..gram. 1 Applic TP PRN QID PRN Milk Of Magnesia (Magnesium Hydroxide) 2,400 Mg/10 Ml Oral.susp 2,400 Mg PO PRN QHS PRN Maalox Maximum Strength Susp (Mag Hydrox/Al Hydrox/Simeth) 355 Ml Oral.susp 15 Ml PO PRN AFTMEALHC PRN Tylenol (Acetaminophen) 325 Mg Tablet 650 Mg PO PRN Q4HRS PRN Triamcinolone Acetonide 15 Gm Cream..g. 1 Karey TP BID Zoloft (Sertraline Hcl) 100 Mg Tablet 100 Mg PO DAILY Olanzapine 2.5 Mg Tablet 2.5 Mg PO QHS Multivit-Fluor 0.5 Mg Tab Chw (Pedi M.vit No.17 With Fluoride) 0.5 Mg Tab.chew 0.5 Mg PO DAILY Namenda (Memantine Hcl) 10 Mg Tablet 10 Mg PO BID Melatonin 3 Mg Tablet 9 Mg PO QHS Cozaar (Losartan Potassium) 100 Mg Tablet 100 Mg PO DAILY Glimepiride 1 Mg Tablet 1 Mg PO DAILY Docusate Sodium 100 Mg Capsule 100 Mg PO BID Aspirin 81 Mg Tab.chew 81 Mg PO DAILY I have reviewed the current psychotropics carefully including drug interactions. Risk benefit ratio favors no change other than as noted in my dictated progress note. Diagnosis: Problems: (1) Anxiety disorder (2) Impulse control disorder (3) Frontotemporal dementia with behavioral disturbance (4) Hypertensive urgency ALISHA MICHAELS MD Nov 10, 2018 22:51
--- NOTE | 2018-11-10 23:33 | PN ---
DATE: 11/09/2018 This late entry for 11/09/2018 covers elements not covered in my initial note. SUBJECTIVE: I met with the patient in the evening. The patient slept 6-3/4 hours previous night. He has been extremely disorganized, confused. Speech is word salad. 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 Compliant with medications. He is oblivious of his surroundings. REVIEW OF SYSTEMS: No CV, , pulmonary, eye, ENT system symptoms on review. Reliability poor. MENTAL STATUS EXAM: Oriented to himself. Insight, judgment, recent and remote memory, attention, concentration, fund of knowledge poor, consistent with his diagnosis mentioned in my initial note. PLAN: No change from initial note for now. MAN Kesha MICHAELS MD DR: MARIA GUADALUPE/steven JOB#: [id number] / [id number]
[2018-11-11 06:42] VITALS: BP 167/85
[2018-11-11] MEDS: SERTRALINE 100 MG TABLET. PO SCH (08:25)
[2018-11-11] MEDS: ASPIRIN 81 MG TAB.CHEW PO SCH (08:25)
[2018-11-11] MEDS: GLIMEPIRIDE 2 MG TABLET PO SCH (08:26)
[2018-11-11] MEDS: LOSARTAN 50 MG TABLET. PO SCH (08:26)
[2018-11-11] MEDS: DOCUSATE SODIUM 100 MG CAPSULE PO SCH ×2 (08:26→19:07)
[2018-11-11] MEDS: MULTIVITAMIN with MINERAL TABLET. PO SCH (08:26)
[2018-11-11] MEDS: DIVALPROEX 125 MG CAP.SPRINK PO SCH ×2 (08:26→16:25)
[2018-11-11] MEDS: MEMANTINE 10 MG TABLET. PO SCH ×2 (08:28→19:07)
[2018-11-11 16:58] VITALS: BP 177/79
[2018-11-11] MEDS: OLANZapine 2.5 MG TABLET PO SCH (19:07)
[2018-11-11] MEDS: MIRTAZAPINE 7.5 MG TABLET. PO SCH (19:07)
[2018-11-11] MEDS: MELATONIN 3 MG TABLET PO SCH (19:07)
--- NOTE | 2018-11-11 22:29 | PDOC ---
Exam Note: Alvin Note: Please also refer to the separate dictated note~for this date of service dictated separately.~Patient seen individually. Discussed the patient with Nursing staff reviewed the chart.~Reviewed interim history and current functioning. Reviewed vital signs,~Labs/ Radiology~and current medications noted below. Continue current treatment with the changes noted in the dictated addendum note Assessment: Vital Signs: Vital Signs Date Time Temp Pulse Resp B/P (MAP) Pulse Ox O2 Delivery O2 Flow Rate FiO2 11/11/18 19:09 76 177/79 11/11/18 16:58 97.8 20 98 11/07/18 16:15 Room Air I&O Intake and Output 11/11/18 07:01 Intake Total 1200 ml Balance 1200 ml Intake Oral 1200 ml # Voids 1 # Bowel Movements 1 Labs: Laboratory Tests Test 11/11/18 07:46 Glucose (Fingerstick) 74 mg/dL (70-99) Current Medications: Meds: Current Medications Olanzapine (ZyPREXA ZYDIS) 2.5 mg PRN Q2HR PRN PO PSYCHOSIS Last administered on 11/08/18at 14:46; Start 10/30/18 at 17:45 Acetaminophen (Tylenol) 650 mg PRN Q4HRS PRN PO PAIN / TEMP; Start 10/30/18 at 18:00 Al Hydroxide/Mg Hydroxide (Mylanta Plus Xs) 15 ml PRN AFTMEALHC PRN PO DYSPEPSIA; Start 10/30/18 at 18:00 Sertraline HCl (Zoloft) 100 mg DAILY PO Last administered on 11/11/18 08:25; Start 10/31/18 at 09:00 Aspirin (Children'S Aspirin) 81 mg DAILYWBKFT PO Last administered on 11/11/18 08:25; Start 10/31/18 at 08:00 Docusate Sodium (Colace) 100 mg BID PO Last administered on 11/11/18 19:07; Start 10/30/18 at 21:00 Glimepiride (Amaryl) 1 mg DAILY08 PO Last administered on 11/11/18 08:26; Start 10/31/18 at 08:00 Hydralazine HCl (Apresoline) 10 mg PRN Q4HRS PRN PO HYPERTENSION SEE COMMENTS Last administered on 11/01/18at 06:26; Start 10/30/18 at 21:00; Stop 11/01/18 at 12:54; Status DC Losartan Potassium (Cozaar) 100 mg DAILY PO Last administered on 11/11/18 08:26 ; Start 10/31/18 at 09:00 Magnesium Hydroxide (Milk Of Magnesia) 2,400 mg PRN QHS PRN PO CONSTIPATION; Start 10/30/18 at 18:45 Melatonin 9 mg QHS PO Last administered on 11/11/18 19:07; Start 10/30/18 at 21 :00 Memantine (Namenda) 10 mg BID PO Last administered on 11/11/18 19:07; Start at 21:00 Multi-Ingredient Ointment (Analgesic [place]) 1 karey PRN QID PRN TP MUSCLE PAIN; Start 10/30/18 at 18:45 Multivitamins/ Calcium (Thera-M Plus) 1 tab DAILY PO Last administered on 08:26; Start 10/31/18 at 09:00 Olanzapine (ZyPREXA) 2.5 mg QHS PO Last administered on 11/11/18 19:07; Start 10/30/18 at 21:00 Non-Formulary Medication (Pedi M.vit No.17 With Fluoride (Multivit-Fluor 0.5 Mg Tab Chw)) 0.5 mg DAILY PO ; Start 10/31/18 at 09:00; Status UNV Triamcinolone Acetonide (Kenalog) 1 karey BID TP Last administered on 10/31/18at 07:48; Start 10/30/18 at 21:00; Stop 10/31/18 at 12:34; Status DC Triamcinolone Acetonide (Kenalog) 1 karey PRN BID PRN TP RASH; Start 10/31/18 at 12:45 Hydralazine HCl (Apresoline) 25 mg Q8H PO Last administered on 11/01/18at 14:00 ; Start 11/01/18 at 14:00; Stop 11/01/18 at 17:21; Status DC Divalproex Sodium (Depakote Sprinkles) 125 mg 0900,1700 PO Last administered on 11/05/18 16:21; Start 11/01/18 at 17:00; Stop 11/05/18 at 16:49; Status DC Hydralazine HCl (Apresoline) 50 mg TID PO Last administered on 11/02/18at 13:33 ; Start 11/01/18 at 21:00; Stop 11/02/18 at 15:47; Status DC Hydralazine HCl (Apresoline) 100 mg TID PO Last administered on 11/11/18 19:07 ; Start 11/02/18 at 21:00 Nifedipine (Procardia Xl) 30 mg BID PO Last administered on 11/03/18at 07:59; Start 11/02/18 at 21:00; Stop 11/03/18 at 12:59; Status DC Mirtazapine (Remeron) 7.5 mg QHS PO Last administered on 11/11/18 19:07; Start 11/02/18 at 21:00 Nifedipine (Procardia Xl) 60 mg BID PO Last administered on 11/11/18 19:09; Start 11/03/18 at 21:00 Vitamin D (Vitamin D3) 50,000 unit WEEKLY PO Last administered on 11/10/18 08: 30; Start 11/03/18 at 13:00 Divalproex Sodium (Depakote Sprinkles) 250 mg 0900,1700 PO Last administered on 11/08/18 16:37; Start 11/06/18 at 09:00; Stop 11/08/18 at 18:11; Status DC Divalproex Sodium (Depakote Sprinkles) 375 mg 0900,1700 PO Last administered on 11/11/18at 16:25; Start 11/09/18 at 09:00 Active Scripts Active Hydralazine Hcl 10 Mg Tablet 10 Mg PO PRN Q4HRS PRN 30 Days Reported Multiple Vitamin (Multivitamin With Minerals) 1 Each Tablet 1 Each PO DAILY Bengay (Menthol) 113 Gm Gel..gram. 1 Applic TP PRN QID PRN Milk Of Magnesia (Magnesium Hydroxide) 2,400 Mg/10 Ml Oral.susp 2,400 Mg PO PRN QHS PRN Maalox Maximum Strength Susp (Mag Hydrox/Al Hydrox/Simeth) 355 Ml Oral.susp 15 Ml PO PRN AFTMEALHC PRN Tylenol (Acetaminophen) 325 Mg Tablet 650 Mg PO PRN Q4HRS PRN Triamcinolone Acetonide 15 Gm Cream..g. 1 Karey TP BID Zoloft (Sertraline Hcl) 100 Mg Tablet 100 Mg PO DAILY Olanzapine 2.5 Mg Tablet 2.5 Mg PO QHS Multivit-Fluor 0.5 Mg Tab Chw (Pedi M.vit No.17 With Fluoride) 0.5 Mg Tab.chew 0.5 Mg PO DAILY Namenda (Memantine Hcl) 10 Mg Tablet 10 Mg PO BID Melatonin 3 Mg Tablet 9 Mg PO QHS Cozaar (Losartan Potassium) 100 Mg Tablet 100 Mg PO DAILY Glimepiride 1 Mg Tablet 1 Mg PO DAILY Docusate Sodium 100 Mg Capsule 100 Mg PO BID Aspirin 81 Mg Tab.chew 81 Mg PO DAILY I have reviewed the current psychotropics carefully including drug interactions. Risk benefit ratio favors no change other than as noted in my dictated progress note. Diagnosis: Problems: (1) Anxiety disorder (2) Impulse control disorder (3) Frontotemporal dementia with behavioral disturbance (4) Hypertensive urgency ALISHA MICHAELS MD Nov 11, 2018 22:29
[2018-11-12 05:56] VITALS: BP 131/74
[2018-11-12 09:44] LABS: BASO # 0.1 x10^3/uL (0.0-0.2); BASO % 1 % (0-3); EOS # 0.6 x10^3/uL (0.0-0.7); EOS % 8 % (0-3); HEMATOCRIT 45.7 % (39.0-53.0); HEMOGLOBIN 15.2 g/dL (13.0-17.5); LYMPH # 2.1 x10^3/uL (1.0-4.8); LYMPH % 29 % (24-48); MEAN CORPUSCULAR HEMOGLOBIN 31 pg (25-35); MEAN CORPUSCULAR HGB CONC 33 g/dL (31-37); MEAN CORPUSCULAR VOLUME 93 fL (79-100); MONO # 0.8 x10^3/uL (0.0-1.1); MONO % 11 % (0-9); NEUT # 3.7 x10^3uL (1.8-7.7); NEUT % 52 % (31-73); PLATELET COUNT 394 x10^3/uL (140-400); RED BLOOD COUNT 4.92 x10^6/uL (4.30-5.70); RED CELL DISTRIBUTION WIDTH 13.4 % (11.5-14.5); WHITE BLOOD COUNT 7.2 x10^3/uL (4.0-11.0)
[2018-11-12] MEDS: GLIMEPIRIDE 2 MG TABLET PO SCH (09:58)
[2018-11-12] MEDS: LOSARTAN 50 MG TABLET. PO SCH (09:58)
[2018-11-12] MEDS: MEMANTINE 10 MG TABLET. PO SCH ×2 (09:59→20:01)
[2018-11-12] MEDS: ASPIRIN 81 MG TAB.CHEW PO SCH (09:59)
[2018-11-12 10:00] LABS: ALBUMIN 4.1 g/dL (3.4-5.0); ALBUMIN/GLOBULIN RATIO 0.9 (1.0-1.7); ALK PHOS 89 U/L (46-116); ALT (SGPT) 40 U/L (16-63); ANION GAP 5 (6-14); AST (SGOT) 33 U/L (15-37); BLOOD UREA NITROGEN 20 mg/dL (8-26); BUN/CREATININE RATIO 13 (6-20); CALCIUM 9.4 mg/dL (8.5-10.1); CARBON DIOXIDE 36 mmol/L (21-32); CHLORIDE 103 mmol/L (98-107); CREATININE 1.6 mg/dL (0.7-1.3); GFR 52.3; GLUCOSE 164 mg/dL (70-99); POTASSIUM 3.9 mmol/L (3.5-5.1); SODIUM 144 mmol/L (136-145); TOTAL BILIRUBIN 0.3 mg/dL (0.2-1.0); TOTAL PROTEIN 8.7 g/dL (6.4-8.2)
[2018-11-12] MEDS: SERTRALINE 100 MG TABLET. PO SCH (10:00)
[2018-11-12] MEDS: MULTIVITAMIN with MINERAL TABLET. PO SCH (10:00)
[2018-11-12] MEDS: DOCUSATE SODIUM 100 MG CAPSULE PO SCH ×2 (10:00→20:00)
[2018-11-12] MEDS: DIVALPROEX 125 MG CAP.SPRINK PO SCH ×2 (10:00→17:02)
[2018-11-12 10:02] LABS: VAL ACID 27 mcg/mL (50-100)
[2018-11-12 16:46] VITALS: BP 120/77
[2018-11-12] MEDS: MIRTAZAPINE 7.5 MG TABLET. PO SCH (20:00)
[2018-11-12] MEDS: MELATONIN 3 MG TABLET PO SCH (20:01)
[2018-11-12] MEDS: OLANZapine 2.5 MG TABLET PO SCH (20:01)
--- NOTE | 2018-11-12 20:10 | PN ---
DATE: 11/10/2018 PSYCHIATRIC PROGRESS NOTE This late entry for 11/10/2018, covers elements not covered in my initial note. SUBJECTIVE: I met with the patient in the evening. The patient slept 6-3/4 hours previous night. The patient was also staffed at a treatment team meeting with the entire team. In fact, on further review, he slept 6-1/2 hours. Appetite fair, not exit seeking. In the morning, he was running around the unit. 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 REVIEW OF SYSTEMS: No CV, , pulmonary, eye, ENT system symptoms on review. Reliability poor. MENTAL STATUS EXAM: Oriented to himself. Insight, judgment, recent and remote memory, attention, concentration, fund of knowledge poor, consistent with his diagnosis mentioned in my initial note. IMPRESSION: Major neurocognitive disorder, frontotemporal with delusion, depression, behavioral disturbance. Rest unchanged. PLAN: Continue psychotropics from initial note and we will adjust the Depakote gradually to reach therapeutic level with the next set of labs due on 11/12/2018. MAN Kesha MICHAELS MD DR: MARIA GUADALUPE/steven JOB#: [id number] / [id number]
--- NOTE | 2018-11-12 22:27 | PN ---
DATE: 11/11/2018 This late entry for 11/11/2018 covers elements not covered in my initial note. SUBJECTIVE: I met with the patient in the evening. The patient slept 6-3/4 hours previous night. 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 REVIEW OF SYSTEMS: No CV, , pulmonary, eye, ENT system symptoms on review. Reliability poor. MENTAL STATUS EXAM: Oriented to himself. Insight, judgment, recent and remote memory, attention, concentration, fund of knowledge poor, consistent with his diagnosis mentioned in my initial note. PLAN: No change from initial note. We are adjusting the Depakote. We will repeat labs level to reach therapeutic level and then make further adjustments. Next set of labs are due on 11/12/2018. MAN GrettaDarrell MICHAELS MD DR: MARIA GUADALUPE/steven JOB#: [id number] / [id number]
--- NOTE | 2018-11-12 22:39 | PDOC ---
Exam Note: Alvin Note: Please also refer to the separate dictated note~for this date of service dictated separately.~Patient seen individually. Discussed the patient with Nursing staff reviewed the chart.~Reviewed interim history and current functioning. Reviewed vital signs,~Labs/ Radiology~and current medications noted below. Continue current treatment with the changes noted in the dictated addendum note Assessment: Vital Signs: Vital Signs Date Time Temp Pulse Resp B/P (MAP) Pulse Ox O2 Delivery O2 Flow Rate FiO2 11/12/18 20:03 91 120/77 11/12/18 16:46 98.6 18 99 Nasal Cannula I&O Intake and Output 11/12/18 07:01 Intake Total 1080 ml Balance 1080 ml Intake Oral 1080 ml Labs: Laboratory Tests Test 11/12/18 07:08 11/12/18 09:27 Glucose (Fingerstick) 104 mg/dL (70-99) H White Blood Count 7.2 x10^3/uL (4.0-11.0) # Red Blood Count 4.92 x10^6/uL (4.30-5.70) Hemoglobin 15.2 g/dL (13.0-17.5) Hematocrit 45.7 % (39.0-53.0) Mean Corpuscular Volume 93 fL (79-100) Mean Corpuscular Hemoglobin 31 pg (25-35) Mean Corpuscular Hemoglobin Concent 33 g/dL (31-37) Red Cell Distribution Width 13.4 % (11.5-14.5) Platelet Count 394 x10^3/uL (140-400) Neutrophils (%) (Auto) 52 % (31-73) Lymphocytes (%) (Auto) 29 % (24-48) Monocytes (%) (Auto) 11 % (0-9) H Eosinophils (%) (Auto) 8 % (0-3) H Basophils (%) (Auto) 1 % (0-3) Neutrophils # (Auto) 3.7 x10^3uL (1.8-7.7) Lymphocytes # (Auto) 2.1 x10^3/uL (1.0-4.8) Monocytes # (Auto) 0.8 x10^3/uL (0.0-1.1) Eosinophils # (Auto) 0.6 x10^3/uL (0.0-0.7) Basophils # (Auto) 0.1 x10^3/uL (0.0-0.2) Sodium Level 144 mmol/L (136-145) Potassium Level 3.9 mmol/L (3.5-5.1) Chloride Level 103 mmol/L (98-107) Carbon Dioxide Level 36 mmol/L (21-32) H Anion Gap 5 (6-14) L Blood Urea Nitrogen 20 mg/dL (8-26) Creatinine 1.6 mg/dL (0.7-1.3) H Estimated GFR (Cockcroft-Gault) 52.3 BUN/Creatinine Ratio 13 (6-20) Glucose Level 164 mg/dL (70-99) H Calcium Level 9.4 mg/dL (8.5-10.1) Total Bilirubin 0.3 mg/dL (0.2-1.0) Aspartate Amino Transferase (AST) 33 U/L (15-37) Alanine Aminotransferase (ALT) 40 U/L (16-63) Alkaline Phosphatase 89 U/L (46-116) Total Protein 8.7 g/dL (6.4-8.2) H Albumin 4.1 g/dL (3.4-5.0) Albumin/Globulin Ratio 0.9 (1.0-1.7) L Valproic Acid Level 27 mcg/mL (50-100) L Valproic Acid Last Dose Date 11/11/2018 Valproic Acid Last Dose Time 1700 Current Medications: Meds: Current Medications Olanzapine (ZyPREXA ZYDIS) 2.5 mg PRN Q2HR PRN PO PSYCHOSIS Last administered on 11/08/18at 14:46; Start 10/30/18 at 17:45 Acetaminophen (Tylenol) 650 mg PRN Q4HRS PRN PO PAIN / TEMP; Start 10/30/18 at 18:00 Al Hydroxide/Mg Hydroxide (Mylanta Plus Xs) 15 ml PRN AFTMEALHC PRN PO DYSPEPSIA; Start 10/30/18 at 18:00 Sertraline HCl (Zoloft) 100 mg DAILY PO Last administered on 11/12/18at 10:00; Start 10/31/18 at 09:00 Aspirin (Children'S Aspirin) 81 mg DAILYWBKFT PO Last administered on 11/12/18at 09:59; Start 10/31/18 at 08:00 Docusate Sodium (Colace) 100 mg BID PO Last administered on 11/12/18 20:00; Start 10/30/18 at 21:00 Glimepiride (Amaryl) 1 mg DAILY08 PO Last administered on 11/12/18 09:58; Start 10/31/18 at 08:00 Hydralazine HCl (Apresoline) 10 mg PRN Q4HRS PRN PO HYPERTENSION SEE COMMENTS Last administered on 11/01/18 06:26; Start 10/30/18 at 21:00; Stop 11/01/18 at 12:54; Status DC Losartan Potassium (Cozaar) 100 mg DAILY PO Last administered on 11/12/18 09:58 ; Start 10/31/18 at 09:00 Magnesium Hydroxide (Milk Of Magnesia) 2,400 mg PRN QHS PRN PO CONSTIPATION; Start 10/30/18 at 18:45 Melatonin 9 mg QHS PO Last administered on 11/12/18 20:01; Start 10/30/18 at 21 :00 Memantine (Namenda) 10 mg BID PO Last administered on 11/12/18 20:01; Start at 21:00 Multi-Ingredient Ointment (Analgesic [place]) 1 karey PRN QID PRN TP MUSCLE PAIN; Start 10/30/18 at 18:45 Multivitamins/ Calcium (Thera-M Plus) 1 tab DAILY PO Last administered on 10:00; Start 10/31/18 at 09:00 Olanzapine (ZyPREXA) 2.5 mg QHS PO Last administered on 11/12/18 20:01; Start 10/30/18 at 21:00 Non-Formulary Medication (Pedi M.vit No.17 With Fluoride (Multivit-Fluor 0.5 Mg Tab Chw)) 0.5 mg DAILY PO ; Start 10/31/18 at 09:00; Status UNV Triamcinolone Acetonide (Kenalog) 1 karey BID TP Last administered on 10/31/18 07:48; Start 10/30/18 at 21:00; Stop 10/31/18 at 12:34; Status DC Triamcinolone Acetonide (Kenalog) 1 karey PRN BID PRN TP RASH; Start 10/31/18 at 12:45 Hydralazine HCl (Apresoline) 25 mg Q8H PO Last administered on 11/01/18 14:00 ; Start 11/01/18 at 14:00; Stop 11/01/18 at 17:21; Status DC Divalproex Sodium (Depakote Sprinkles) 125 mg 0900,1700 PO Last administered on 11/05/18 16:21; Start 11/01/18 at 17:00; Stop 11/05/18 at 16:49; Status DC Hydralazine HCl (Apresoline) 50 mg TID PO Last administered on 11/02/18 13:33 ; Start 11/01/18 at 21:00; Stop 11/02/18 at 15:47; Status DC Hydralazine HCl (Apresoline) 100 mg TID PO Last administered on 11/12/18 20:01 ; Start 11/02/18 at 21:00 Nifedipine (Procardia Xl) 30 mg BID PO Last administered on 11/03/18 07:59; Start 11/02/18 at 21:00; Stop 11/03/18 at 12:59; Status DC Mirtazapine (Remeron) 7.5 mg QHS PO Last administered on 11/12/18 20:00; Start 11/02/18 at 21:00 Nifedipine (Procardia Xl) 60 mg BID PO Last administered on 11/12/18 20:03; Start 11/03/18 at 21:00 Vitamin D (Vitamin D3) 50,000 unit WEEKLY PO Last administered on 11/10/18 08: 30; Start 11/03/18 at 13:00 Divalproex Sodium (Depakote Sprinkles) 250 mg 0900,1700 PO Last administered on 11/08/18 16:37; Start 11/06/18 at 09:00; Stop 11/08/18 at 18:11; Status DC Divalproex Sodium (Depakote Sprinkles) 375 mg 0900,1700 PO Last administered on 11/12/18 10:00; Start 11/09/18 at 09:00; Stop 11/12/18 at 16:37; Status DC Divalproex Sodium (Depakote Sprinkles) 500 mg 0900,1700 PO Last administered on 2/8/19at 17:02; Start 11/12/18 at 17:00 Active Scripts Active Hydralazine Hcl 10 Mg Tablet 10 Mg PO PRN Q4HRS PRN 30 Days Reported Multiple Vitamin (Multivitamin With Minerals) 1 Each Tablet 1 Each PO DAILY [place] (Menthol) 113 Gm Gel..gram. 1 Applic TP PRN QID PRN Milk Of Magnesia (Magnesium Hydroxide) 2,400 Mg/10 Ml Oral.susp 2,400 Mg PO PRN QHS PRN Maalox Maximum Strength Susp (Mag Hydrox/Al Hydrox/Simeth) 355 Ml Oral.susp 15 Ml PO PRN AFTMEALHC PRN Tylenol (Acetaminophen) 325 Mg Tablet 650 Mg PO PRN Q4HRS PRN Triamcinolone Acetonide 15 Gm Cream..g. 1 Karey TP BID Zoloft (Sertraline Hcl) 100 Mg Tablet 100 Mg PO DAILY Olanzapine 2.5 Mg Tablet 2.5 Mg PO QHS Multivit-Fluor 0.5 Mg Tab Chw (Pedi M.vit No.17 With Fluoride) 0.5 Mg Tab.chew 0.5 Mg PO DAILY Namenda (Memantine Hcl) 10 Mg Tablet 10 Mg PO BID Melatonin 3 Mg Tablet 9 Mg PO QHS Cozaar (Losartan Potassium) 100 Mg Tablet 100 Mg PO DAILY Glimepiride 1 Mg Tablet 1 Mg PO DAILY Docusate Sodium 100 Mg Capsule 100 Mg PO BID Aspirin 81 Mg Tab.chew 81 Mg PO DAILY I have reviewed the current psychotropics carefully including drug interactions. Risk benefit ratio favors no change other than as noted in my dictated progress note. Diagnosis: Problems: (1) Anxiety disorder (2) Impulse control disorder (3) Frontotemporal dementia with behavioral disturbance (4) Hypertensive urgency ALISHA MICHAELS MD Nov 12, 2018 22:39
[2018-11-13 06:37] VITALS: BP 166/93
[2018-11-13] MEDS: GLIMEPIRIDE 2 MG TABLET PO SCH (08:42)
[2018-11-13] MEDS: ASPIRIN 81 MG TAB.CHEW PO SCH (08:43)
[2018-11-13] MEDS: DOCUSATE SODIUM 100 MG CAPSULE PO SCH ×2 (08:44→20:55)
[2018-11-13] MEDS: MEMANTINE 10 MG TABLET. PO SCH ×2 (08:45→20:55)
[2018-11-13] MEDS: DIVALPROEX 125 MG CAP.SPRINK PO SCH ×2 (08:45→16:38)
[2018-11-13] MEDS: LOSARTAN 50 MG TABLET. PO SCH (08:45)
[2018-11-13] MEDS: MULTIVITAMIN with MINERAL TABLET. PO SCH (08:46)
[2018-11-13] MEDS: SERTRALINE 100 MG TABLET. PO SCH (08:46)
[2018-11-13 14:30] VITALS: BP 127/69
[2018-11-13 16:47] VITALS: BP 153/74
[2018-11-13] MEDS: MIRTAZAPINE 7.5 MG TABLET. PO SCH (20:55)
[2018-11-13] MEDS: OLANZapine 2.5 MG TABLET PO SCH (20:55)
[2018-11-13] MEDS: MELATONIN 3 MG TABLET PO SCH (20:57)
--- NOTE | 2018-11-13 21:59 | PDOC ---
Exam Note: Alvin Note: Please also refer to the separate dictated note~for this date of service dictated separately.~Patient seen individually. Discussed the patient with Nursing staff reviewed the chart.~Reviewed interim history and current functioning. Reviewed vital signs,~Labs/ Radiology~and current medications noted below. Continue current treatment with the changes noted in the dictated addendum note Assessment: Vital Signs: Vital Signs Date Time Temp Pulse Resp B/P (MAP) Pulse Ox O2 Delivery O2 Flow Rate FiO2 11/13/18 20:57 66 153/77 11/13/18 16:47 98.3 20 95 11/13/18 06:37 Nasal Cannula I&O Intake and Output 11/13/18 07:01 Intake Total 1085 ml Balance 1085 ml Intake Oral 1085 ml Labs: Laboratory Tests Test 11/13/18 07:09 Glucose (Fingerstick) 105 mg/dL (70-99) H Current Medications: Meds: Current Medications Olanzapine (ZyPREXA ZYDIS) 2.5 mg PRN Q2HR PRN PO PSYCHOSIS Last administered on 11/08/18 14:46; Start 10/30/18 at 17:45 Acetaminophen (Tylenol) 650 mg PRN Q4HRS PRN PO PAIN / TEMP Last administered on 11/13/18 16:38; Start 10/30/18 at 18:00 Al Hydroxide/Mg Hydroxide (Mylanta Plus Xs) 15 ml PRN AFTMEALHC PRN PO DYSPEPSIA; Start 10/30/18 at 18:00 Sertraline HCl (Zoloft) 100 mg DAILY PO Last administered on 11/13/18 08:46; Start 10/31/18 at 09:00 Aspirin (Children'S Aspirin) 81 mg DAILYWBKFT PO Last administered on 11/13/18 08:43; Start 10/31/18 at 08:00 Docusate Sodium (Colace) 100 mg BID PO Last administered on 11/13/18 20:55; Start 10/30/18 at 21:00 Glimepiride (Amaryl) 1 mg DAILY08 PO Last administered on 11/13/18 08:42; Start 10/31/18 at 08:00 Hydralazine HCl (Apresoline) 10 mg PRN Q4HRS PRN PO HYPERTENSION SEE COMMENTS Last administered on 11/01/18 06:26; Start 10/30/18 at 21:00; Stop 11/01/18 at 12:54; Status DC Losartan Potassium (Cozaar) 100 mg DAILY PO Last administered on 11/13/18 08:45 ; Start 10/31/18 at 09:00 Magnesium Hydroxide (Milk Of Magnesia) 2,400 mg PRN QHS PRN PO CONSTIPATION; Start 10/30/18 at 18:45 Melatonin 9 mg QHS PO Last administered on 11/13/18 20:57; Start 10/30/18 at 21 :00 Memantine (Namenda) 10 mg BID PO Last administered on 11/13/18 20:55; Start at 21:00 Multi-Ingredient Ointment (Analgesic [place]) 1 karey PRN QID PRN TP MUSCLE PAIN; Start 10/30/18 at 18:45 Multivitamins/ Calcium (Thera-M Plus) 1 tab DAILY PO Last administered on 08:46; Start 10/31/18 at 09:00 Olanzapine (ZyPREXA) 2.5 mg QHS PO Last administered on 11/13/18 20:55; Start 10/30/18 at 21:00 Non-Formulary Medication (Pedi M.vit No.17 With Fluoride (Multivit-Fluor 0.5 Mg Tab Chw)) 0.5 mg DAILY PO ; Start 10/31/18 at 09:00; Status UNV Triamcinolone Acetonide (Kenalog) 1 karey BID TP Last administered on 10/31/18 07:48; Start 10/30/18 at 21:00; Stop 10/31/18 at 12:34; Status DC Triamcinolone Acetonide (Kenalog) 1 karey PRN BID PRN TP RASH; Start 10/31/18 at 12:45 Hydralazine HCl (Apresoline) 25 mg Q8H PO Last administered on 11/01/18 14:00 ; Start 11/01/18 at 14:00; Stop 11/01/18 at 17:21; Status DC Divalproex Sodium (Depakote Sprinkles) 125 mg 0900,1700 PO Last administered on 11/05/18 16:21; Start 11/01/18 at 17:00; Stop 11/05/18 at 16:49; Status DC Hydralazine HCl (Apresoline) 50 mg TID PO Last administered on 11/02/18at 13:33 ; Start 11/01/18 at 21:00; Stop 11/02/18 at 15:47; Status DC Hydralazine HCl (Apresoline) 100 mg TID PO Last administered on 11/13/18at 20:57 ; Start 11/02/18 at 21:00 Nifedipine (Procardia Xl) 30 mg BID PO Last administered on 11/03/18at 07:59; Start 11/02/18 at 21:00; Stop 11/03/18 at 12:59; Status DC Mirtazapine (Remeron) 7.5 mg QHS PO Last administered on 11/13/18 20:55; Start 11/02/18 at 21:00 Nifedipine (Procardia Xl) 60 mg BID PO Last administered on 11/13/18 20:56; Start 11/03/18 at 21:00 Vitamin D (Vitamin D3) 50,000 unit WEEKLY PO Last administered on 11/10/18 08: 30; Start 11/03/18 at 13:00 Divalproex Sodium (Depakote Sprinkles) 250 mg 0900,1700 PO Last administered on 11/08/18 16:37; Start 11/06/18 at 09:00; Stop 11/08/18 at 18:11; Status DC Divalproex Sodium (Depakote Sprinkles) 375 mg 0900,1700 PO Last administered on 11/12/18at 10:00; Start 11/09/18 at 09:00; Stop 11/12/18 at 16:37; Status DC Divalproex Sodium (Depakote Sprinkles) 500 mg 0900,1700 PO Last administered on 11/13/18at 16:38; Start 11/12/18 at 17:00 Active Scripts Active Hydralazine Hcl 10 Mg Tablet 10 Mg PO PRN Q4HRS PRN 30 Days Reported Multiple Vitamin (Multivitamin With Minerals) 1 Each Tablet 1 Each PO DAILY [place] (Menthol) 113 Gm Gel..gram. 1 Applic TP PRN QID PRN Milk Of Magnesia (Magnesium Hydroxide) 2,400 Mg/10 Ml Oral.susp 2,400 Mg PO PRN QHS PRN Maalox Maximum Strength Susp (Mag Hydrox/Al Hydrox/Simeth) 355 Ml Oral.susp 15 Ml PO PRN AFTMEALHC PRN Tylenol (Acetaminophen) 325 Mg Tablet 650 Mg PO PRN Q4HRS PRN Triamcinolone Acetonide 15 Gm Cream..g. 1 Karey TP BID Zoloft (Sertraline Hcl) 100 Mg Tablet 100 Mg PO DAILY Olanzapine 2.5 Mg Tablet 2.5 Mg PO QHS Multivit-Fluor 0.5 Mg Tab Chw (Pedi M.vit No.17 With Fluoride) 0.5 Mg Tab.chew 0.5 Mg PO DAILY Namenda (Memantine Hcl) 10 Mg Tablet 10 Mg PO BID Melatonin 3 Mg Tablet 9 Mg PO QHS Cozaar (Losartan Potassium) 100 Mg Tablet 100 Mg PO DAILY Glimepiride 1 Mg Tablet 1 Mg PO DAILY Docusate Sodium 100 Mg Capsule 100 Mg PO BID Aspirin 81 Mg Tab.chew 81 Mg PO DAILY I have reviewed the current psychotropics carefully including drug interactions. Risk benefit ratio favors no change other than as noted in my dictated progress note. Diagnosis: Problems: (1) Anxiety disorder (2) Impulse control disorder (3) Frontotemporal dementia with behavioral disturbance (4) Hypertensive urgency ALISHA MICHAELS MD Nov 13, 2018 21:59
--- NOTE | 2018-11-13 23:32 | PN ---
DATE: 11/12/2018 PSYCHIATRIC PROGRESS NOTE This late entry for 11/12/2018 covers elements not covered in my initial note. SUBJECTIVE: I met with the patient in the evening. The patient slept 5 hours previous night. He has been wandering, otherwise compliant, redirectable. 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 Compliant with medications. Valproic acid level is 27, subtherapeutic. REVIEW OF SYSTEMS: No CV, , pulmonary, eye, ENT system symptoms on review. MENTAL STATUS EXAM: Oriented to himself. Insight, judgment, recent and remote memory, attention, concentration, fund of knowledge poor consistent with his diagnosis of frontotemporal dementia. Rest unchanged. PLAN: Valproic acid level subtherapeutic at 27 on Depakote 375 b.i.d., we will increase to 500 b.i.d. Check CBC, CMP, valproic acid level in 3 days. Rest unchanged. ALISHA MICHAELS MD DR: MARIA GUADALUPE/steven JOB#: [id number] / [id number]
[2018-11-14 06:49] VITALS: BP 175/83
[2018-11-14] MEDS: ASPIRIN 81 MG TAB.CHEW PO SCH (08:35)
[2018-11-14] MEDS: DOCUSATE SODIUM 100 MG CAPSULE PO SCH ×2 (08:35→19:20)
[2018-11-14] MEDS: GLIMEPIRIDE 2 MG TABLET PO SCH (08:35)
[2018-11-14] MEDS: MEMANTINE 10 MG TABLET. PO SCH ×2 (08:36→19:18)
[2018-11-14] MEDS: DIVALPROEX 125 MG CAP.SPRINK PO SCH ×2 (08:36→17:21)
[2018-11-14] MEDS: LOSARTAN 50 MG TABLET. PO SCH (08:36)
[2018-11-14] MEDS: SERTRALINE 100 MG TABLET. PO SCH (08:37)
[2018-11-14] MEDS: MULTIVITAMIN with MINERAL TABLET. PO SCH (08:37)
[2018-11-14 14:52] VITALS: BP 142/80
[2018-11-14 17:04] VITALS: BP 149/80
[2018-11-14] MEDS: OLANZapine 2.5 MG TABLET PO SCH (19:19)
[2018-11-14] MEDS: MIRTAZAPINE 7.5 MG TABLET. PO SCH (19:20)
[2018-11-14] MEDS: MELATONIN 3 MG TABLET PO SCH (19:20)
--- NOTE | 2018-11-14 22:47 | PDOC ---
Exam Note: Alvin Note: Please also refer to the separate dictated note~for this date of service dictated separately.~Patient seen individually. Discussed the patient with Nursing staff reviewed the chart.~Reviewed interim history and current functioning. Reviewed vital signs,~Labs/ Radiology~and current medications noted below. Continue current treatment with the changes noted in the dictated addendum note Assessment: Vital Signs: Vital Signs Date Time Temp Pulse Resp B/P (MAP) Pulse Ox O2 Delivery O2 Flow Rate FiO2 11/14/18 19:48 60 149/80 11/14/18 17:04 98.9 20 96 11/14/18 06:49 Room Air I&O Intake and Output 11/14/18 07:01 Intake Total 1680 ml Balance 1680 ml Intake Oral 1680 ml Labs: Laboratory Tests Test 11/14/18 07:57 Glucose (Fingerstick) 161 mg/dL (70-99) H Current Medications: Meds: Current Medications Olanzapine (ZyPREXA ZYDIS) 2.5 mg PRN Q2HR PRN PO PSYCHOSIS Last administered on 11/14/18 17:21; Start 10/30/18 at 17:45 Acetaminophen (Tylenol) 650 mg PRN Q4HRS PRN PO PAIN / TEMP Last administered on 11/13/18 16:38; Start 10/30/18 at 18:00 Al Hydroxide/Mg Hydroxide (Mylanta Plus Xs) 15 ml PRN AFTMEALHC PRN PO DYSPEPSIA; Start 10/30/18 at 18:00 Sertraline HCl (Zoloft) 100 mg DAILY PO Last administered on 11/14/18 08:37; Start 10/31/18 at 09:00 Aspirin (Children'S Aspirin) 81 mg DAILYWBKFT PO Last administered on 08:35; Start 10/31/18 at 08:00 Docusate Sodium (Colace) 100 mg BID PO Last administered on 11/14/18 19:20; Start 10/30/18 at 21:00 Glimepiride (Amaryl) 1 mg DAILY08 PO Last administered on 11/14/18 08:35; Start 10/31/18 at 08:00 Hydralazine HCl (Apresoline) 10 mg PRN Q4HRS PRN PO HYPERTENSION SEE COMMENTS Last administered on 11/01/18 06:26; Start 10/30/18 at 21:00; Stop 11/01/18 at 12:54; Status DC Losartan Potassium (Cozaar) 100 mg DAILY PO Last administered on 11/14/18 08: 36; Start 10/31/18 at 09:00 Magnesium Hydroxide (Milk Of Magnesia) 2,400 mg PRN QHS PRN PO CONSTIPATION; Start 10/30/18 at 18:45 Melatonin 9 mg QHS PO Last administered on 11/14/18 19:20; Start 10/30/18 at 21:00 Memantine (Namenda) 10 mg BID PO Last administered on 11/14/18 19:18; Start at 21:00 Multi-Ingredient Ointment (Analgesic [place]) 1 kraey PRN QID PRN TP MUSCLE PAIN; Start 10/30/18 at 18:45 Multivitamins/ Calcium (Thera-M Plus) 1 tab DAILY PO Last administered on 08:37; Start 10/31/18 at 09:00 Olanzapine (ZyPREXA) 2.5 mg QHS PO Last administered on 11/14/18 19:19; Start 10/30/18 at 21:00 Non-Formulary Medication (Pedi M.vit No.17 With Fluoride (Multivit-Fluor 0.5 Mg Tab Chw)) 0.5 mg DAILY PO ; Start 10/31/18 at 09:00; Status UNV Triamcinolone Acetonide (Kenalog) 1 karey BID TP Last administered on 10/31/18 07:48; Start 10/30/18 at 21:00; Stop 10/31/18 at 12:34; Status DC Triamcinolone Acetonide (Kenalog) 1 karey PRN BID PRN TP RASH; Start 10/31/18 at 12:45 Hydralazine HCl (Apresoline) 25 mg Q8H PO Last administered on 11/01/18 14:00 ; Start 11/01/18 at 14:00; Stop 11/01/18 at 17:21; Status DC Divalproex Sodium (Depakote Sprinkles) 125 mg 0900,1700 PO Last administered on 11/05/18 16:21; Start 11/01/18 at 17:00; Stop 11/05/18 at 16:49; Status DC Hydralazine HCl (Apresoline) 50 mg TID PO Last administered on 11/02/18at 13:33 ; Start 11/01/18 at 21:00; Stop 11/02/18 at 15:47; Status DC Hydralazine HCl (Apresoline) 100 mg TID PO Last administered on 11/14/18at 19:19 ; Start 11/02/18 at 21:00 Nifedipine (Procardia Xl) 30 mg BID PO Last administered on 11/03/18at 07:59; Start 11/02/18 at 21:00; Stop 11/03/18 at 12:59; Status DC Mirtazapine (Remeron) 7.5 mg QHS PO Last administered on 11/14/18 19:20; Start 11/02/18 at 21:00 Nifedipine (Procardia Xl) 60 mg BID PO Last administered on 11/14/18at 19:48; Start 11/03/18 at 21:00 Vitamin D (Vitamin D3) 50,000 unit WEEKLY PO Last administered on 11/10/18at 08: 30; Start 11/03/18 at 13:00 Divalproex Sodium (Depakote Sprinkles) 250 mg 0900,1700 PO Last administered on 11/08/18at 16:37; Start 11/06/18 at 09:00; Stop 11/08/18 at 18:11; Status DC Divalproex Sodium (Depakote Sprinkles) 375 mg 0900,1700 PO Last administered on 11/12/18at 10:00; Start 11/09/18 at 09:00; Stop 11/12/18 at 16:37; Status DC Divalproex Sodium (Depakote Sprinkles) 500 mg 0900,1700 PO Last administered on 11/14/18at 17:21; Start 11/12/18 at 17:00 Active Scripts Active Hydralazine Hcl 10 Mg Tablet 10 Mg PO PRN Q4HRS PRN 30 Days Reported Multiple Vitamin (Multivitamin With Minerals) 1 Each Tablet 1 Each PO DAILY [place] (Menthol) 113 Gm Gel..gram. 1 Applic TP PRN QID PRN Milk Of Magnesia (Magnesium Hydroxide) 2,400 Mg/10 Ml Oral.susp 2,400 Mg PO PRN QHS PRN Maalox Maximum Strength Susp (Mag Hydrox/Al Hydrox/Simeth) 355 Ml Oral.susp 15 Ml PO PRN AFTMEALHC PRN Tylenol (Acetaminophen) 325 Mg Tablet 650 Mg PO PRN Q4HRS PRN Triamcinolone Acetonide 15 Gm Cream..g. 1 Karey TP BID Zoloft (Sertraline Hcl) 100 Mg Tablet 100 Mg PO DAILY Olanzapine 2.5 Mg Tablet 2.5 Mg PO QHS Multivit-Fluor 0.5 Mg Tab Chw (Pedi M.vit No.17 With Fluoride) 0.5 Mg Tab.chew 0.5 Mg PO DAILY Namenda (Memantine Hcl) 10 Mg Tablet 10 Mg PO BID Melatonin 3 Mg Tablet 9 Mg PO QHS Cozaar (Losartan Potassium) 100 Mg Tablet 100 Mg PO DAILY Glimepiride 1 Mg Tablet 1 Mg PO DAILY Docusate Sodium 100 Mg Capsule 100 Mg PO BID Aspirin 81 Mg Tab.chew 81 Mg PO DAILY I have reviewed the current psychotropics carefully including drug interactions. Risk benefit ratio favors no change other than as noted in my dictated progress note. Diagnosis: Problems: (1) Anxiety disorder (2) Impulse control disorder (3) Frontotemporal dementia with behavioral disturbance (4) Hypertensive urgency ALISHA MICHAELS MD Nov 14, 2018 22:47
--- NOTE | 2018-11-15 00:32 | PN ---
DATE: 11/13/2018 PSYCHIATRIC PROGRESS NOTE This late entry 11/13/2018 covers elements not covered in my initial note. SUBJECTIVE: I met with the patient in the evening. The patient slept 7-3/4 hours previous night. He remains confused, tends to try and control any disruptive behaviors on the unit. 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 REVIEW OF SYSTEMS: No CV, , pulmonary, eye, ENT system symptoms on review. Reliability poor. MENTAL STATUS EXAM: Oriented to himself. Insight, judgment, recent and remote memory, attention, concentration, fund of knowledge poor, consistent with his diagnosis mentioned in my initial note. PLAN: No change from initial note. MAN Kesha MICHAELS MD DR: MARIA GUADALUPE/steven JOB#: [id number] / [id number]
[2018-11-15 06:08] VITALS: BP 169/82
[2018-11-15 07:33] LABS: BASO % 1 % (0-3); EOS # 0.3 x10^3/uL (0.0-0.7); EOS % 6 % (0-3); HEMATOCRIT 40.9 % (39.0-53.0); HEMOGLOBIN 13.5 g/dL (13.0-17.5); LYMPH # 0.9 x10^3/uL (1.0-4.8); LYMPH % 18 % (24-48); MEAN CORPUSCULAR HEMOGLOBIN 31 pg (25-35); MEAN CORPUSCULAR HGB CONC 33 g/dL (31-37); MEAN CORPUSCULAR VOLUME 93 fL (79-100); MONO # 0.4 x10^3/uL (0.0-1.1); MONO % 8 % (0-9); NEUT # 3.5 x10^3uL (1.8-7.7); NEUT % 68 % (31-73); PLATELET COUNT 288 x10^3/uL (140-400); RED BLOOD COUNT 4.39 x10^6/uL (4.30-5.70); RED CELL DISTRIBUTION WIDTH 13.2 % (11.5-14.5); WHITE BLOOD COUNT 5.2 x10^3/uL (4.0-11.0)
[2018-11-15 07:48] LABS: ALBUMIN 3.6 g/dL (3.4-5.0); ALBUMIN/GLOBULIN RATIO 0.9 (1.0-1.7); ALK PHOS 77 U/L (46-116); ALT (SGPT) 39 U/L (16-63); ANION GAP 4 (6-14); AST (SGOT) 31 U/L (15-37); BLOOD UREA NITROGEN 20 mg/dL (8-26); BUN/CREATININE RATIO 14 (6-20); CALCIUM 9.1 mg/dL (8.5-10.1); CARBON DIOXIDE 36 mmol/L (21-32); CHLORIDE 106 mmol/L (98-107); CREATININE 1.4 mg/dL (0.7-1.3); GLUCOSE 167 mg/dL (70-99); POTASSIUM 3.9 mmol/L (3.5-5.1); SODIUM 146 mmol/L (136-145); TOTAL BILIRUBIN 0.2 mg/dL (0.2-1.0); TOTAL PROTEIN 7.7 g/dL (6.4-8.2)
[2018-11-15 07:50] LABS: VAL ACID 37 mcg/mL (50-100)
[2018-11-15] MEDS: GLIMEPIRIDE 2 MG TABLET PO SCH (07:55)
[2018-11-15] MEDS: ASPIRIN 81 MG TAB.CHEW PO SCH (07:55)
[2018-11-15] MEDS: DOCUSATE SODIUM 100 MG CAPSULE PO SCH ×2 (07:56→20:12)
[2018-11-15] MEDS: LOSARTAN 50 MG TABLET. PO SCH (07:57)
[2018-11-15] MEDS: MEMANTINE 10 MG TABLET. PO SCH ×2 (07:57→20:12)
[2018-11-15] MEDS: DIVALPROEX 125 MG CAP.SPRINK PO SCH ×2 (07:57→17:27)
[2018-11-15] MEDS: MULTIVITAMIN with MINERAL TABLET. PO SCH (07:58)
[2018-11-15] MEDS: SERTRALINE 100 MG TABLET. PO SCH (07:59)
[2018-11-15 13:12] LABS: INFLUENZA A PATIENT NEGATIVE (NEGATIVE); INFLUENZA B PATIENT NEGATIVE (NEGATIVE)
[2018-11-15 16:38] VITALS: BP 167/78
[2018-11-15] MEDS: MELATONIN 3 MG TABLET PO SCH (20:12)
[2018-11-15] MEDS: OLANZapine 2.5 MG TABLET PO SCH (20:13)
[2018-11-15] MEDS: MIRTAZAPINE 7.5 MG TABLET. PO SCH (20:14)
--- NOTE | 2018-11-15 21:24 | PN ---
DATE: 11/14/2018 PSYCHIATRIC PROGRESS NOTE This late entry 11/14/2018, covers elements not covered in my initial note. SUBJECTIVE: I met with the patient in the evening. The patient slept 5 hours previous night. He has been checking the doors, but redirects; received Zyprexa p.r.n., which is helpful. REVIEW OF SYSTEMS: No CV, , pulmonary, eye, ENT system symptoms on review. Reliability poor. MENTAL STATUS EXAM: Oriented to himself. Insight, judgment, recent and remote memory, attention, concentration, fund of knowledge poor consistent with his diagnosis mentioned in my initial note. PLAN: No change from initial note. He remains on melatonin, Namenda, Zyprexa, scheduled Zoloft, Remeron, Depakote. Valproic acid level subtherapeutic at 27, will repeat labs. Adjust further as clinically indicated. ALISHA MICHAELS MD DR: MARIA GUADALUPE/steven JOB#: [id number] / [id number]
[2018-11-16 05:45] VITALS: BP 161/74
[2018-11-16] MEDS: LOSARTAN 50 MG TABLET. PO SCH (08:53)
[2018-11-16] MEDS: MEMANTINE 10 MG TABLET. PO SCH ×2 (08:54→19:44)
[2018-11-16] MEDS: GLIMEPIRIDE 2 MG TABLET PO SCH (08:54)
[2018-11-16] MEDS: DIVALPROEX 125 MG CAP.SPRINK PO SCH ×2 (08:54→17:18)
[2018-11-16] MEDS: ASPIRIN 81 MG TAB.CHEW PO SCH (08:54)
[2018-11-16] MEDS: MULTIVITAMIN with MINERAL TABLET. PO SCH (08:55)
[2018-11-16] MEDS: DOCUSATE SODIUM 100 MG CAPSULE PO SCH ×2 (08:55→19:51)
[2018-11-16] MEDS: SERTRALINE 100 MG TABLET. PO SCH (08:55)
--- NOTE | 2018-11-16 09:19 | PDOC ---
Exam Note: Alvin Note: Late entry for DOS 11.15.2018. Please also refer to the separate dictated note~ for this date of service dictated separately.~Patient seen individually. Discussed the patient with Nursing staff reviewed the chart.~Reviewed interim history and current functioning. Reviewed vital signs,~Labs/ Radiology~and current medications noted below. Continue current treatment with the changes noted in the dictated addendum note Assessment: Vital Signs: VS - Last 72 Hours, by Label Date Time Temp Pulse Resp B/P (MAP) Pulse Ox O2 Delivery O2 Flow Rate FiO2 11/16/18 08:55 61 161/74 11/16/18 08:53 61 161/74 11/16/18 08:53 61 161/74 11/16/18 05:45 97.7 61 20 161/74 (103) 91 11/15/18 20:14 71 167/78 11/15/18 20:13 71 167/78 11/15/18 16:38 97.9 71 19 167/78 (107) 96 11/15/18 14:22 83 161/73 11/15/18 07:58 83 169/82 11/15/18 07:57 83 169/82 11/15/18 07:56 83 169/82 11/15/18 06:08 97.9 83 18 169/82 (111) 99 11/14/18 19:48 60 149/80 11/14/18 19:19 60 149/80 11/14/18 17:04 98.9 60 20 149/80 (103) 96 11/14/18 14:54 80 142/80 11/14/18 14:52 98.8 82 22 142/80 (100) 96 11/14/18 08:37 81 175/83 11/14/18 08:36 81 175/83 11/14/18 08:35 81 175/83 11/14/18 06:49 97.5 81 18 175/83 (113) 99 Room Air 11/13/18 20:57 66 153/77 11/13/18 20:56 66 153/77 11/13/18 16:47 98.3 75 20 153/74 (100) 95 11/13/18 14:33 78 127/69 11/13/18 14:30 78 127/69 (88) Vital Signs Date Time Temp Pulse Resp B/P (MAP) Pulse Ox O2 Delivery O2 Flow Rate FiO2 11/16/18 08:55 61 161/74 11/16/18 05:45 97.7 20 91 11/14/18 06:49 Room Air I&O Intake and Output 11/16/18 07:00 Intake Total 1200 ml Balance 1200 ml Intake Oral 1200 ml # Voids 1 Labs: Laboratory Tests Test 11/15/18 12:45 11/16/18 07:26 Influenza Type A (Rapid) Negative (NEGATIVE) Influenza Type B (Rapid) Negative (NEGATIVE) Glucose (Fingerstick) 76 mg/dL (70-99) Current Medications: Meds: Current Medications Olanzapine (ZyPREXA ZYDIS) 2.5 mg PRN Q2HR PRN PO PSYCHOSIS Last administered on 11/14/18 17:21; Start 10/30/18 at 17:45 Acetaminophen (Tylenol) 650 mg PRN Q4HRS PRN PO PAIN / TEMP Last administered on 11/13/18 16:38; Start 10/30/18 at 18:00 Al Hydroxide/Mg Hydroxide (Mylanta Plus Xs) 15 ml PRN AFTMEALHC PRN PO DYSPEPSIA; Start 10/30/18 at 18:00 Sertraline HCl (Zoloft) 100 mg DAILY PO Last administered on 11/16/18 08:55; Start 10/31/18 at 09:00 Aspirin (Children'S Aspirin) 81 mg DAILYWBKFT PO Last administered on 08:54; Start 10/31/18 at 08:00 Docusate Sodium (Colace) 100 mg BID PO Last administered on 11/16/18 08:55; Start 10/30/18 at 21:00 Glimepiride (Amaryl) 1 mg DAILY08 PO Last administered on 11/16/18 08:54; Start 10/31/18 at 08:00 Hydralazine HCl (Apresoline) 10 mg PRN Q4HRS PRN PO HYPERTENSION SEE COMMENTS Last administered on 11/01/18 06:26; Start 10/30/18 at 21:00; Stop 11/01/18 at 12:54; Status DC Losartan Potassium (Cozaar) 100 mg DAILY PO Last administered on 11/16/18 08: 53; Start 10/31/18 at 09:00 Magnesium Hydroxide (Milk Of Magnesia) 2,400 mg PRN QHS PRN PO CONSTIPATION; Start 10/30/18 at 18:45 Melatonin 9 mg QHS PO Last administered on 11/15/18at 20:12; Start 10/30/18 at 21:00 Memantine (Namenda) 10 mg BID PO Last administered on 11/16/18 08:54; Start at 21:00 Multi-Ingredient Ointment (Analgesic [place]) 1 karey PRN QID PRN TP MUSCLE PAIN; Start 10/30/18 at 18:45 Multivitamins/ Calcium (Thera-M Plus) 1 tab DAILY PO Last administered on 08:55; Start 10/31/18 at 09:00 Olanzapine (ZyPREXA) 2.5 mg QHS PO Last administered on 11/15/18 20:13; Start 10/30/18 at 21:00 Non-Formulary Medication (Pedi M.vit No.17 With Fluoride (Multivit-Fluor 0.5 Mg Tab Chw)) 0.5 mg DAILY PO ; Start 10/31/18 at 09:00; Status UNV Triamcinolone Acetonide (Kenalog) 1 karey BID TP Last administered on 10/31/18at 07:48; Start 10/30/18 at 21:00; Stop 10/31/18 at 12:34; Status DC Triamcinolone Acetonide (Kenalog) 1 karey PRN BID PRN TP RASH; Start 10/31/18 at 12:45 Hydralazine HCl (Apresoline) 25 mg Q8H PO Last administered on 11/01/18at 14:00 ; Start 11/01/18 at 14:00; Stop 11/01/18 at 17:21; Status DC Divalproex Sodium (Depakote Sprinkles) 125 mg 0900,1700 PO Last administered on 11/05/18 16:21; Start 11/01/18 at 17:00; Stop 11/05/18 at 16:49; Status DC Hydralazine HCl (Apresoline) 50 mg TID PO Last administered on 11/02/18at 13:33 ; Start 11/01/18 at 21:00; Stop 11/02/18 at 15:47; Status DC Hydralazine HCl (Apresoline) 100 mg TID PO Last administered on 11/16/18 08:55 ; Start 11/02/18 at 21:00 Nifedipine (Procardia Xl) 30 mg BID PO Last administered on 11/03/18 07:59; Start 11/02/18 at 21:00; Stop 11/03/18 at 12:59; Status DC Mirtazapine (Remeron) 7.5 mg QHS PO Last administered on 11/15/18 20:14; Start 11/02/18 at 21:00 Nifedipine (Procardia Xl) 60 mg BID PO Last administered on 11/16/18 08:53; Start 11/03/18 at 21:00 Vitamin D (Vitamin D3) 50,000 unit WEEKLY PO Last administered on 11/10/18 08: 30; Start 11/03/18 at 13:00 Divalproex Sodium (Depakote Sprinkles) 250 mg 0900,1700 PO Last administered on 11/08/18at 16:37; Start 11/06/18 at 09:00; Stop 11/08/18 at 18:11; Status DC Divalproex Sodium (Depakote Sprinkles) 375 mg 0900,1700 PO Last administered on 11/12/18at 10:00; Start 11/09/18 at 09:00; Stop 11/12/18 at 16:37; Status DC Divalproex Sodium (Depakote Sprinkles) 500 mg 0900,1700 PO Last administered on 11/16/18 08:54; Start 11/12/18 at 17:00 Active Scripts Active Hydralazine Hcl 10 Mg Tablet 10 Mg PO PRN Q4HRS PRN 30 Days Reported Multiple Vitamin (Multivitamin With Minerals) 1 Each Tablet 1 Each PO DAILY Bengay (Menthol) 113 Gm Gel..gram. 1 Applic TP PRN QID PRN Milk Of Magnesia (Magnesium Hydroxide) 2,400 Mg/10 Ml Oral.susp 2,400 Mg PO PRN QHS PRN Maalox Maximum Strength Susp (Mag Hydrox/Al Hydrox/Simeth) 355 Ml Oral.susp 15 Ml PO PRN AFTMEALHC PRN Tylenol (Acetaminophen) 325 Mg Tablet 650 Mg PO PRN Q4HRS PRN Triamcinolone Acetonide 15 Gm Cream..g. 1 Karey TP BID Zoloft (Sertraline Hcl) 100 Mg Tablet 100 Mg PO DAILY Olanzapine 2.5 Mg Tablet 2.5 Mg PO QHS Multivit-Fluor 0.5 Mg Tab Chw (Pedi M.vit No.17 With Fluoride) 0.5 Mg Tab.chew 0.5 Mg PO DAILY Namenda (Memantine Hcl) 10 Mg Tablet 10 Mg PO BID Melatonin 3 Mg Tablet 9 Mg PO QHS Cozaar (Losartan Potassium) 100 Mg Tablet 100 Mg PO DAILY Glimepiride 1 Mg Tablet 1 Mg PO DAILY Docusate Sodium 100 Mg Capsule 100 Mg PO BID Aspirin 81 Mg Tab.chew 81 Mg PO DAILY I have reviewed the current psychotropics carefully including drug interactions. Risk benefit ratio favors no change other than as noted in my dictated progress note. Diagnosis: Problems: (1) Anxiety disorder (2) Impulse control disorder (3) Frontotemporal dementia with behavioral disturbance (4) Hypertensive urgency ALISHA MICHAELS MD Nov 16, 2018 09:19
[2018-11-16 15:10] VITALS: BP 125/69
[2018-11-16] MEDS: MIRTAZAPINE 7.5 MG TABLET. PO SCH (19:44)
[2018-11-16] MEDS: MELATONIN 3 MG TABLET PO SCH (19:51)
[2018-11-16] MEDS: OLANZapine 2.5 MG TABLET PO SCH (19:51)
--- NOTE | 2018-11-16 21:43 | PN ---
DATE: 11/15/2018 This late entry for 11/15/2018 covers elements not covered in my initial note. SUBJECTIVE: I met with the patient in the evening. The patient slept 7 hours previous night. 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 REVIEW OF SYSTEMS: No CV, , pulmonary, eye, ENT system symptoms on review. Reliability poor, pleasant, verbal, smiling as I met with him, oblivious of his surroundings. MENTAL STATUS EXAM: Oriented to himself. Insight, judgment, recent and remote memory, attention, concentration, fund of knowledge poor, consistent with his diagnosis mentioned in my initial note. PLAN: No change from initial note. We will maintain Namenda, melatonin, Zyprexa, Remeron, Zoloft, and Depakote along with Zyprexa p.r.n. If agitation resurfaces, we may adjust the Depakote to reach a therapeutic level, but for now despite being subtherapeutic clinically it is adequate at this dosage. ALISHA MICHAELS MD DR: MARIA GUADALUPE/steven JOB#: [id number] / [id number]
--- NOTE | 2018-11-16 22:41 | PDOC ---
Exam Note: Alvin Note: Please also refer to the separate dictated note~for this date of service dictated separately.~Patient seen individually. Discussed the patient with Nursing staff reviewed the chart.~Reviewed interim history and current functioning. Reviewed vital signs,~Labs/ Radiology~and current medications noted below. Continue current treatment with the changes noted in the dictated addendum note Assessment: Vital Signs: Vital Signs Date Time Temp Pulse Resp B/P (MAP) Pulse Ox O2 Delivery O2 Flow Rate FiO2 11/16/18 19:54 78 167/87 11/16/18 15:10 98.6 18 98 11/14/18 06:49 Room Air I&O Intake and Output 11/16/18 06:59 Intake Total 1200 ml Balance 1200 ml Intake Oral 1200 ml # Voids 1 Labs: Laboratory Tests Test 11/16/18 07:26 Glucose (Fingerstick) 76 mg/dL (70-99) Current Medications: Meds: Current Medications Olanzapine (ZyPREXA ZYDIS) 2.5 mg PRN Q2HR PRN PO PSYCHOSIS Last administered on 11/14/18 17:21; Start 10/30/18 at 17:45 Acetaminophen (Tylenol) 650 mg PRN Q4HRS PRN PO PAIN / TEMP Last administered on 11/13/18 16:38; Start 10/30/18 at 18:00 Al Hydroxide/Mg Hydroxide (Mylanta Plus Xs) 15 ml PRN AFTMEALHC PRN PO DYSPEPSIA; Start 10/30/18 at 18:00 Sertraline HCl (Zoloft) 100 mg DAILY PO Last administered on 11/16/18 08:55; Start 10/31/18 at 09:00 Aspirin (Children'S Aspirin) 81 mg DAILYWBKFT PO Last administered on 08:54; Start 10/31/18 at 08:00 Docusate Sodium (Colace) 100 mg BID PO Last administered on 11/16/18 19:51; Start 10/30/18 at 21:00 Glimepiride (Amaryl) 1 mg DAILY08 PO Last administered on 11/16/18 08:54; Start 10/31/18 at 08:00 Hydralazine HCl (Apresoline) 10 mg PRN Q4HRS PRN PO HYPERTENSION SEE COMMENTS Last administered on 11/01/18 06:26; Start 10/30/18 at 21:00; Stop 11/01/18 at 12:54; Status DC Losartan Potassium (Cozaar) 100 mg DAILY PO Last administered on 11/16/18 08: 53; Start 10/31/18 at 09:00 Magnesium Hydroxide (Milk Of Magnesia) 2,400 mg PRN QHS PRN PO CONSTIPATION; Start 10/30/18 at 18:45 Melatonin 9 mg QHS PO Last administered on 11/16/18 19:51; Start 10/30/18 at 21:00 Memantine (Namenda) 10 mg BID PO Last administered on 11/16/18 19:44; Start at 21:00 Multi-Ingredient Ointment (Analgesic [place]) 1 karey PRN QID PRN TP MUSCLE PAIN; Start 10/30/18 at 18:45 Multivitamins/ Calcium (Thera-M Plus) 1 tab DAILY PO Last administered on 08:55; Start 10/31/18 at 09:00 Olanzapine (ZyPREXA) 2.5 mg QHS PO Last administered on 11/16/18 19:51; Start 10/30/18 at 21:00 Non-Formulary Medication (Pedi M.vit No.17 With Fluoride (Multivit-Fluor 0.5 Mg Tab Chw)) 0.5 mg DAILY PO ; Start 10/31/18 at 09:00; Status UNV Triamcinolone Acetonide (Kenalog) 1 karey BID TP Last administered on 10/31/18 07:48; Start 10/30/18 at 21:00; Stop 10/31/18 at 12:34; Status DC Triamcinolone Acetonide (Kenalog) 1 karey PRN BID PRN TP RASH; Start 10/31/18 at 12:45 Hydralazine HCl (Apresoline) 25 mg Q8H PO Last administered on 11/01/18 14:00 ; Start 11/01/18 at 14:00; Stop 11/01/18 at 17:21; Status DC Divalproex Sodium (Depakote Sprinkles) 125 mg 0900,1700 PO Last administered on 11/05/18 16:21; Start 11/01/18 at 17:00; Stop 11/05/18 at 16:49; Status DC Hydralazine HCl (Apresoline) 50 mg TID PO Last administered on 11/02/18at 13:33 ; Start 11/01/18 at 21:00; Stop 11/02/18 at 15:47; Status DC Hydralazine HCl (Apresoline) 100 mg TID PO Last administered on 11/16/18at 19:51 ; Start 11/02/18 at 21:00 Nifedipine (Procardia Xl) 30 mg BID PO Last administered on 11/03/18at 07:59; Start 11/02/18 at 21:00; Stop 11/03/18 at 12:59; Status DC Mirtazapine (Remeron) 7.5 mg QHS PO Last administered on 11/16/18 19:44; Start 11/02/18 at 21:00 Nifedipine (Procardia Xl) 60 mg BID PO Last administered on 11/16/18at 19:54; Start 11/03/18 at 21:00 Vitamin D (Vitamin D3) 50,000 unit WEEKLY PO Last administered on 11/10/18at 08: 30; Start 11/03/18 at 13:00 Divalproex Sodium (Depakote Sprinkles) 250 mg 0900,1700 PO Last administered on 11/08/18at 16:37; Start 11/06/18 at 09:00; Stop 11/08/18 at 18:11; Status DC Divalproex Sodium (Depakote Sprinkles) 375 mg 0900,1700 PO Last administered on 11/12/18at 10:00; Start 11/09/18 at 09:00; Stop 11/12/18 at 16:37; Status DC Divalproex Sodium (Depakote Sprinkles) 500 mg 0900,1700 PO Last administered on 11/16/18at 17:18; Start 11/12/18 at 17:00 Active Scripts Active Hydralazine Hcl 10 Mg Tablet 10 Mg PO PRN Q4HRS PRN 30 Days Reported Multiple Vitamin (Multivitamin With Minerals) 1 Each Tablet 1 Each PO DAILY Bengay (Menthol) 113 Gm Gel..gram. 1 Applic TP PRN QID PRN Milk Of Magnesia (Magnesium Hydroxide) 2,400 Mg/10 Ml Oral.susp 2,400 Mg PO PRN QHS PRN Maalox Maximum Strength Susp (Mag Hydrox/Al Hydrox/Simeth) 355 Ml Oral.susp 15 Ml PO PRN AFTMEALHC PRN Tylenol (Acetaminophen) 325 Mg Tablet 650 Mg PO PRN Q4HRS PRN Triamcinolone Acetonide 15 Gm Cream..g. 1 Karey TP BID Zoloft (Sertraline Hcl) 100 Mg Tablet 100 Mg PO DAILY Olanzapine 2.5 Mg Tablet 2.5 Mg PO QHS Multivit-Fluor 0.5 Mg Tab Chw (Pedi M.vit No.17 With Fluoride) 0.5 Mg Tab.chew 0.5 Mg PO DAILY Namenda (Memantine Hcl) 10 Mg Tablet 10 Mg PO BID Melatonin 3 Mg Tablet 9 Mg PO QHS Cozaar (Losartan Potassium) 100 Mg Tablet 100 Mg PO DAILY Glimepiride 1 Mg Tablet 1 Mg PO DAILY Docusate Sodium 100 Mg Capsule 100 Mg PO BID Aspirin 81 Mg Tab.chew 81 Mg PO DAILY I have reviewed the current psychotropics carefully including drug interactions. Risk benefit ratio favors no change other than as noted in my dictated progress note. Diagnosis: Problems: (1) Anxiety disorder (2) Impulse control disorder (3) Frontotemporal dementia with behavioral disturbance (4) Hypertensive urgency ALISHA MICHAELS MD Nov 16, 2018 22:41
[2018-11-17 05:59] VITALS: BP 131/74
[2018-11-17] MEDS: MULTIVITAMIN with MINERAL TABLET. PO SCH (09:39)
[2018-11-17] MEDS: GLIMEPIRIDE 2 MG TABLET PO SCH (09:40)
[2018-11-17] MEDS: SERTRALINE 100 MG TABLET. PO SCH (09:41)
[2018-11-17] MEDS: MEMANTINE 10 MG TABLET. PO SCH ×2 (09:41→19:54)
[2018-11-17] MEDS: LOSARTAN 50 MG TABLET. PO SCH (09:41)
[2018-11-17] MEDS: DOCUSATE SODIUM 100 MG CAPSULE PO SCH ×2 (09:42→19:42)
[2018-11-17] MEDS: ASPIRIN 81 MG TAB.CHEW PO SCH (09:42)
[2018-11-17] MEDS: DIVALPROEX 125 MG CAP.SPRINK PO SCH ×2 (09:42→17:44)
[2018-11-17] MEDS: CHOLECALCIFEROL (VITAMIN D3) 50,000 UNIT CAPSULE PO SCH (09:44)
[2018-11-17 16:10] VITALS: BP 125/70
[2018-11-17] MEDS: MELATONIN 3 MG TABLET PO SCH (19:42)
[2018-11-17] MEDS: OLANZapine 2.5 MG TABLET PO SCH (19:54)
[2018-11-17] MEDS: MIRTAZAPINE 7.5 MG TABLET. PO SCH (19:54)
--- NOTE | 2018-11-17 22:06 | PN ---
DATE: 11/16/2018 PSYCHIATRIC PROGRESS NOTE This late entry 11/16/2017 covers elements not covered in my initial note. SUBJECTIVE: I met with the patient in the evening. The patient slept 5-3/4 hours previous night. He remains confused, compliant with medications. Oriented to himself. He tends to help other patients. 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 Not aggressive. REVIEW OF SYSTEMS: No CV, , pulmonary, eye, ENT system symptoms on review. Reliability poor. MENTAL STATUS EXAM: Oriented to himself. Insight, judgment, recent and remote memory, attention, concentration, fund of knowledge poor, consistent with his diagnosis mentioned in my initial note. PLAN: No change from initial note. MAN Kesha MICHAELS MD DR: MARIA GUADALUPE/steven JOB#: [id number] / [id number]
--- NOTE | 2018-11-17 22:22 | PDOC ---
Exam Note: Alvin Note: Please also refer to the separate dictated note~for this date of service dictated separately.~Patient seen individually. Discussed the patient with Nursing staff reviewed the chart.~Reviewed interim history and current functioning. Reviewed vital signs,~Labs/ Radiology~and current medications noted below. Continue current treatment with the changes noted in the dictated addendum note Assessment: Vital Signs: Vital Signs Date Time Temp Pulse Resp B/P (MAP) Pulse Ox O2 Delivery O2 Flow Rate FiO2 11/17/18 19:55 75 146/82 11/17/18 16:10 98.1 20 97 11/14/18 06:49 Room Air I&O Intake and Output 11/17/18 07:00 Intake Total 1080 ml Balance 1080 ml Intake Oral 1080 ml Labs: Laboratory Tests Test 11/17/18 07:24 Glucose (Fingerstick) 77 mg/dL (70-99) Current Medications: Meds: Current Medications Olanzapine (ZyPREXA ZYDIS) 2.5 mg PRN Q2HR PRN PO PSYCHOSIS Last administered on 11/14/18 17:21; Start 10/30/18 at 17:45 Acetaminophen (Tylenol) 650 mg PRN Q4HRS PRN PO PAIN / TEMP Last administered on 11/13/18 16:38; Start 10/30/18 at 18:00 Al Hydroxide/Mg Hydroxide (Mylanta Plus Xs) 15 ml PRN AFTMEALHC PRN PO DYSPEPSIA; Start 10/30/18 at 18:00 Sertraline HCl (Zoloft) 100 mg DAILY PO Last administered on 11/17/18 09:41; Start 10/31/18 at 09:00 Aspirin (Children'S Aspirin) 81 mg DAILYWBKFT PO Last administered on 09:42; Start 10/31/18 at 08:00 Docusate Sodium (Colace) 100 mg BID PO Last administered on 11/17/18 19:42; Start 10/30/18 at 21:00 Glimepiride (Amaryl) 1 mg DAILY08 PO Last administered on 11/17/18 09:40; Start 10/31/18 at 08:00 Hydralazine HCl (Apresoline) 10 mg PRN Q4HRS PRN PO HYPERTENSION SEE COMMENTS Last administered on 11/01/18 06:26; Start 10/30/18 at 21:00; Stop 11/01/18 at 12:54; Status DC Losartan Potassium (Cozaar) 100 mg DAILY PO Last administered on 11/17/18 09: 41; Start 10/31/18 at 09:00 Magnesium Hydroxide (Milk Of Magnesia) 2,400 mg PRN QHS PRN PO CONSTIPATION; Start 10/30/18 at 18:45 Melatonin 9 mg QHS PO Last administered on 11/17/18 19:42; Start 10/30/18 at 21:00 Memantine (Namenda) 10 mg BID PO Last administered on 11/17/18 19:54; Start at 21:00 Multi-Ingredient Ointment (Analgesic [place]) 1 karey PRN QID PRN TP MUSCLE PAIN; Start 10/30/18 at 18:45 Multivitamins/ Calcium (Thera-M Plus) 1 tab DAILY PO Last administered on 09:39; Start 10/31/18 at 09:00 Olanzapine (ZyPREXA) 2.5 mg QHS PO Last administered on 11/17/18 19:54; Start 10/30/18 at 21:00 Non-Formulary Medication (Pedi M.vit No.17 With Fluoride (Multivit-Fluor 0.5 Mg Tab Chw)) 0.5 mg DAILY PO ; Start 10/31/18 at 09:00; Status UNV Triamcinolone Acetonide (Kenalog) 1 karey BID TP Last administered on 10/31/18 07:48; Start 10/30/18 at 21:00; Stop 10/31/18 at 12:34; Status DC Triamcinolone Acetonide (Kenalog) 1 karey PRN BID PRN TP RASH; Start 10/31/18 at 12:45 Hydralazine HCl (Apresoline) 25 mg Q8H PO Last administered on 11/01/18at 14:00 ; Start 11/01/18 at 14:00; Stop 11/01/18 at 17:21; Status DC Divalproex Sodium (Depakote Sprinkles) 125 mg 0900,1700 PO Last administered on 11/05/18 16:21; Start 11/01/18 at 17:00; Stop 11/05/18 at 16:49; Status DC Hydralazine HCl (Apresoline) 50 mg TID PO Last administered on 11/02/18 13:33 ; Start 11/01/18 at 21:00; Stop 11/02/18 at 15:47; Status DC Hydralazine HCl (Apresoline) 100 mg TID PO Last administered on 11/17/18 19:53 ; Start 11/02/18 at 21:00 Nifedipine (Procardia Xl) 30 mg BID PO Last administered on 11/03/18 07:59; Start 11/02/18 at 21:00; Stop 11/03/18 at 12:59; Status DC Mirtazapine (Remeron) 7.5 mg QHS PO Last administered on 11/17/18 19:54; Start 11/02/18 at 21:00 Nifedipine (Procardia Xl) 60 mg BID PO Last administered on 11/17/18 19:55; Start 11/03/18 at 21:00 Vitamin D (Vitamin D3) 50,000 unit WEEKLY PO Last administered on 11/17/18 09: 44; Start 11/03/18 at 13:00 Divalproex Sodium (Depakote Sprinkles) 250 mg 0900,1700 PO Last administered on 11/08/18 16:37; Start 11/06/18 at 09:00; Stop 11/08/18 at 18:11; Status DC Divalproex Sodium (Depakote Sprinkles) 375 mg 0900,1700 PO Last administered on 11/12/18 10:00; Start 11/09/18 at 09:00; Stop 11/12/18 at 16:37; Status DC Divalproex Sodium (Depakote Sprinkles) 500 mg 0900,1700 PO Last administered on 11/17/18 17:44; Start 11/12/18 at 17:00 Active Scripts Active Hydralazine Hcl 10 Mg Tablet 10 Mg PO PRN Q4HRS PRN 30 Days Reported Multiple Vitamin (Multivitamin With Minerals) 1 Each Tablet 1 Each PO DAILY Bengay (Menthol) 113 Gm Gel..gram. 1 Applic TP PRN QID PRN Milk Of Magnesia (Magnesium Hydroxide) 2,400 Mg/10 Ml Oral.susp 2,400 Mg PO PRN QHS PRN Maalox Maximum Strength Susp (Mag Hydrox/Al Hydrox/Simeth) 355 Ml Oral.susp 15 Ml PO PRN AFTMEALHC PRN Tylenol (Acetaminophen) 325 Mg Tablet 650 Mg PO PRN Q4HRS PRN Triamcinolone Acetonide 15 Gm Cream..g. 1 Karey TP BID Zoloft (Sertraline Hcl) 100 Mg Tablet 100 Mg PO DAILY Olanzapine 2.5 Mg Tablet 2.5 Mg PO QHS Multivit-Fluor 0.5 Mg Tab Chw (Pedi M.vit No.17 With Fluoride) 0.5 Mg Tab.chew 0.5 Mg PO DAILY Namenda (Memantine Hcl) 10 Mg Tablet 10 Mg PO BID Melatonin 3 Mg Tablet 9 Mg PO QHS Cozaar (Losartan Potassium) 100 Mg Tablet 100 Mg PO DAILY Glimepiride 1 Mg Tablet 1 Mg PO DAILY Docusate Sodium 100 Mg Capsule 100 Mg PO BID Aspirin 81 Mg Tab.chew 81 Mg PO DAILY I have reviewed the current psychotropics carefully including drug interactions. Risk benefit ratio favors no change other than as noted in my dictated progress note. Diagnosis: Problems: (1) Anxiety disorder (2) Impulse control disorder (3) Frontotemporal dementia with behavioral disturbance (4) Hypertensive urgency ALISHA MICHAELS MD Nov 17, 2018 22:22
[2018-11-18 05:44] VITALS: BP 125/69
[2018-11-18] MEDS: GLIMEPIRIDE 2 MG TABLET PO SCH (07:46)
[2018-11-18] MEDS: ASPIRIN 81 MG TAB.CHEW PO SCH (07:46)
[2018-11-18] MEDS: LOSARTAN 50 MG TABLET. PO SCH (07:47)
[2018-11-18] MEDS: DIVALPROEX 125 MG CAP.SPRINK PO SCH ×2 (07:47→17:26)
[2018-11-18] MEDS: DOCUSATE SODIUM 100 MG CAPSULE PO SCH ×2 (07:47→19:31)
[2018-11-18] MEDS: MEMANTINE 10 MG TABLET. PO SCH ×2 (07:47→19:32)
[2018-11-18] MEDS: MULTIVITAMIN with MINERAL TABLET. PO SCH (07:49)
[2018-11-18] MEDS: SERTRALINE 100 MG TABLET. PO SCH (07:49)
[2018-11-18 13:25] VITALS: BP 124/76
[2018-11-18 16:37] VITALS: BP 126/69
[2018-11-18] MEDS: MIRTAZAPINE 7.5 MG TABLET. PO SCH (19:31)
[2018-11-18] MEDS: OLANZapine 2.5 MG TABLET PO SCH (19:32)
[2018-11-18] MEDS: MELATONIN 3 MG TABLET PO SCH (19:32)
--- NOTE | 2018-11-18 22:41 | PDOC ---
Exam Note: Alvin Note: Please also refer to the separate dictated note~for this date of service dictated separately.~Patient seen individually. Discussed the patient with Nursing staff reviewed the chart.~Reviewed interim history and current functioning. Reviewed vital signs,~Labs/ Radiology~and current medications noted below. Continue current treatment with the changes noted in the dictated addendum note Assessment: Vital Signs: Vital Signs Date Time Temp Pulse Resp B/P (MAP) Pulse Ox O2 Delivery O2 Flow Rate FiO2 11/18/18 19:33 76 126/69 11/18/18 16:37 97.9 20 98 11/14/18 06:49 Room Air I&O Intake and Output 11/18/18 06:59 Intake Total 1400 ml Balance 1400 ml Intake Oral 1400 ml Labs: Laboratory Tests Test 11/18/18 07:51 Glucose (Fingerstick) 73 mg/dL (70-99) Current Medications: Meds: Current Medications Olanzapine (ZyPREXA ZYDIS) 2.5 mg PRN Q2HR PRN PO PSYCHOSIS Last administered on 11/14/18 17:21; Start 10/30/18 at 17:45 Acetaminophen (Tylenol) 650 mg PRN Q4HRS PRN PO PAIN / TEMP Last administered on 11/13/18 16:38; Start 10/30/18 at 18:00 Al Hydroxide/Mg Hydroxide (Mylanta Plus Xs) 15 ml PRN AFTMEALHC PRN PO DYSPEPSIA; Start 10/30/18 at 18:00 Sertraline HCl (Zoloft) 100 mg DAILY PO Last administered on 11/18/18 07:49; Start 10/31/18 at 09:00 Aspirin (Children'S Aspirin) 81 mg DAILYWBKFT PO Last administered on 07:46; Start 10/31/18 at 08:00 Docusate Sodium (Colace) 100 mg BID PO Last administered on 11/18/18 19:31; Start 10/30/18 at 21:00 Glimepiride (Amaryl) 1 mg DAILY08 PO Last administered on 11/18/18 07:46; Start 10/31/18 at 08:00 Hydralazine HCl (Apresoline) 10 mg PRN Q4HRS PRN PO HYPERTENSION SEE COMMENTS Last administered on 11/01/18 06:26; Start 10/30/18 at 21:00; Stop 11/01/18 at 12:54; Status DC Losartan Potassium (Cozaar) 100 mg DAILY PO Last administered on 11/18/18 07: 47; Start 10/31/18 at 09:00 Magnesium Hydroxide (Milk Of Magnesia) 2,400 mg PRN QHS PRN PO CONSTIPATION; Start 10/30/18 at 18:45 Melatonin 9 mg QHS PO Last administered on 11/18/18 19:32; Start 10/30/18 at 21:00 Memantine (Namenda) 10 mg BID PO Last administered on 11/18/18 19:32; Start at 21:00 Multi-Ingredient Ointment (Analgesic [place]) 1 karey PRN QID PRN TP MUSCLE PAIN; Start 10/30/18 at 18:45 Multivitamins/ Calcium (Thera-M Plus) 1 tab DAILY PO Last administered on 07:49; Start 10/31/18 at 09:00 Olanzapine (ZyPREXA) 2.5 mg QHS PO Last administered on 11/18/18 19:32; Start 10/30/18 at 21:00 Non-Formulary Medication (Pedi M.vit No.17 With Fluoride (Multivit-Fluor 0.5 Mg Tab Chw)) 0.5 mg DAILY PO ; Start 10/31/18 at 09:00; Status UNV Triamcinolone Acetonide (Kenalog) 1 karey BID TP Last administered on 10/31/18 07:48; Start 10/30/18 at 21:00; Stop 10/31/18 at 12:34; Status DC Triamcinolone Acetonide (Kenalog) 1 karey PRN BID PRN TP RASH; Start 10/31/18 at 12:45 Hydralazine HCl (Apresoline) 25 mg Q8H PO Last administered on 11/01/18at 14:00 ; Start 11/01/18 at 14:00; Stop 11/01/18 at 17:21; Status DC Divalproex Sodium (Depakote Sprinkles) 125 mg 0900,1700 PO Last administered on 11/05/18 16:21; Start 11/01/18 at 17:00; Stop 11/05/18 at 16:49; Status DC Hydralazine HCl (Apresoline) 50 mg TID PO Last administered on 11/02/18 13:33 ; Start 11/01/18 at 21:00; Stop 11/02/18 at 15:47; Status DC Hydralazine HCl (Apresoline) 100 mg TID PO Last administered on 11/18/18 19:31 ; Start 11/02/18 at 21:00 Nifedipine (Procardia Xl) 30 mg BID PO Last administered on 11/03/18at 07:59; Start 11/02/18 at 21:00; Stop 11/03/18 at 12:59; Status DC Mirtazapine (Remeron) 7.5 mg QHS PO Last administered on 11/18/18 19:31; Start 11/02/18 at 21:00 Nifedipine (Procardia Xl) 60 mg BID PO Last administered on 11/18/18 19:33; Start 11/03/18 at 21:00 Vitamin D (Vitamin D3) 50,000 unit WEEKLY PO Last administered on 11/17/18 09: 44; Start 11/03/18 at 13:00 Divalproex Sodium (Depakote Sprinkles) 250 mg 0900,1700 PO Last administered on 11/08/18 16:37; Start 11/06/18 at 09:00; Stop 11/08/18 at 18:11; Status DC Divalproex Sodium (Depakote Sprinkles) 375 mg 0900,1700 PO Last administered on 11/12/18 10:00; Start 11/09/18 at 09:00; Stop 11/12/18 at 16:37; Status DC Divalproex Sodium (Depakote Sprinkles) 500 mg 0900,1700 PO Last administered on 11/18/18 17:26; Start 11/12/18 at 17:00 Active Scripts Active Hydralazine Hcl 10 Mg Tablet 10 Mg PO PRN Q4HRS PRN 30 Days Reported Multiple Vitamin (Multivitamin With Minerals) 1 Each Tablet 1 Each PO DAILY Bengay (Menthol) 113 Gm Gel..gram. 1 Applic TP PRN QID PRN Milk Of Magnesia (Magnesium Hydroxide) 2,400 Mg/10 Ml Oral.susp 2,400 Mg PO PRN QHS PRN Maalox Maximum Strength Susp (Mag Hydrox/Al Hydrox/Simeth) 355 Ml Oral.susp 15 Ml PO PRN AFTMEALHC PRN Tylenol (Acetaminophen) 325 Mg Tablet 650 Mg PO PRN Q4HRS PRN Triamcinolone Acetonide 15 Gm Cream..g. 1 Karey TP BID Zoloft (Sertraline Hcl) 100 Mg Tablet 100 Mg PO DAILY Olanzapine 2.5 Mg Tablet 2.5 Mg PO QHS Multivit-Fluor 0.5 Mg Tab Chw (Pedi M.vit No.17 With Fluoride) 0.5 Mg Tab.chew 0.5 Mg PO DAILY Namenda (Memantine Hcl) 10 Mg Tablet 10 Mg PO BID Melatonin 3 Mg Tablet 9 Mg PO QHS Cozaar (Losartan Potassium) 100 Mg Tablet 100 Mg PO DAILY Glimepiride 1 Mg Tablet 1 Mg PO DAILY Docusate Sodium 100 Mg Capsule 100 Mg PO BID Aspirin 81 Mg Tab.chew 81 Mg PO DAILY I have reviewed the current psychotropics carefully including drug interactions. Risk benefit ratio favors no change other than as noted in my dictated progress note. Diagnosis: Problems: (1) Anxiety disorder (2) Impulse control disorder (3) Frontotemporal dementia with behavioral disturbance (4) Hypertensive urgency ALISHA MICHAELS MD Nov 18, 2018 22:41
[2018-11-19 06:27] VITALS: BP 141/87
[2018-11-19] MEDS: DOCUSATE SODIUM 100 MG CAPSULE PO SCH ×2 (08:41→20:05)
[2018-11-19] MEDS: GLIMEPIRIDE 2 MG TABLET PO SCH (08:41)
[2018-11-19] MEDS: ASPIRIN 81 MG TAB.CHEW PO SCH (08:42)
[2018-11-19] MEDS: LOSARTAN 50 MG TABLET. PO SCH (08:42)
[2018-11-19] MEDS: SERTRALINE 100 MG TABLET. PO SCH (08:42)
[2018-11-19] MEDS: MEMANTINE 10 MG TABLET. PO SCH ×2 (08:43→20:05)
[2018-11-19] MEDS: DIVALPROEX 125 MG CAP.SPRINK PO SCH ×2 (08:43→17:21)
[2018-11-19] MEDS: MULTIVITAMIN with MINERAL TABLET. PO SCH (08:43)
[2018-11-19 16:53] VITALS: BP 180/98
[2018-11-19] MEDS: MIRTAZAPINE 7.5 MG TABLET. PO SCH (20:04)
[2018-11-19] MEDS: OLANZapine 2.5 MG TABLET PO SCH (20:04)
[2018-11-19] MEDS: MELATONIN 3 MG TABLET PO SCH (20:05)
--- NOTE | 2018-11-19 20:40 | PN ---
DATE: 11/18/2018 PSYCHIATRIC PROGRESS NOTE This late entry 11/18/2018 covers elements not covered in my initial note. SUBJECTIVE: I met with the patient in the evening and staffed at a treatment team meeting with the entire team in the morning. The patient slept 6-1/2 hours previous night. 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 REVIEW OF SYSTEMS: No CV, , pulmonary, eye, ENT system symptoms on review. Reliability poor. Discussed discharge plans and home environment for the social service staff. MENTAL STATUS EXAM: Oriented to himself. Insight, judgment, recent and remote memory, attention, concentration, fund of knowledge poor, consistent with his diagnosis mentioned in my initial note. PLAN: No change from initial note. MAN Kesha MICHAELS MD DR: MRAIA GUADALUPE/steven JOB#: [id number] / [id number]
--- NOTE | 2018-11-19 20:51 | PN ---
DATE: 11/17/2018 PSYCHIATRIC PROGRESS NOTE This late entry 11/17/2018 covers elements not covered in my initial note. SUBJECTIVE: I met with the patient in the evening. The patient slept 6-1/4 hours previous night. He remains confused, oblivious of his surroundings, but not aggressive. REVIEW OF SYSTEMS: No CV, , pulmonary, eye, ENT system symptoms on review. Reliability poor. MENTAL STATUS EXAM: Oriented to himself. Insight, judgment, recent and remote memory, attention, concentration, fund of knowledge poor, consistent with his diagnosis mentioned in my initial note. PLAN: No change from my initial note. MAN Kesha MICHAELS MD DR: MARIA GUADALUPE/steven JOB#: [id number] / [id number]
--- NOTE | 2018-11-19 22:40 | PDOC ---
Exam Note: Alvin Note: Please also refer to the separate dictated note~for this date of service dictated separately.~Patient seen individually. Discussed the patient with Nursing staff reviewed the chart.~Reviewed interim history and current functioning. Reviewed vital signs,~Labs/ Radiology~and current medications noted below. Continue current treatment with the changes noted in the dictated addendum note Assessment: Vital Signs: Vital Signs Date Time Temp Pulse Resp B/P (MAP) Pulse Ox O2 Delivery O2 Flow Rate FiO2 11/19/18 20:04 82 180/98 11/19/18 16:53 97.4 20 99 Room Air I&O Intake and Output 11/19/18 07:00 Intake Total 960 ml Balance 960 ml Intake Oral 960 ml Labs: Laboratory Tests Test 11/19/18 07:23 Glucose (Fingerstick) 61 mg/dL (70-99) L Current Medications: Meds: Current Medications Olanzapine (ZyPREXA ZYDIS) 2.5 mg PRN Q2HR PRN PO PSYCHOSIS Last administered on 11/14/18 17:21; Start 10/30/18 at 17:45 Acetaminophen (Tylenol) 650 mg PRN Q4HRS PRN PO PAIN / TEMP Last administered on 11/13/18 16:38; Start 10/30/18 at 18:00 Al Hydroxide/Mg Hydroxide (Mylanta Plus Xs) 15 ml PRN AFTMEALHC PRN PO DYSPEPSIA; Start 10/30/18 at 18:00 Sertraline HCl (Zoloft) 100 mg DAILY PO Last administered on 11/19/18 08:42; Start 10/31/18 at 09:00 Aspirin (Children'S Aspirin) 81 mg DAILYWBKFT PO Last administered on 08:42; Start 10/31/18 at 08:00 Docusate Sodium (Colace) 100 mg BID PO Last administered on 11/19/18 20:05; Start 10/30/18 at 21:00 Glimepiride (Amaryl) 1 mg DAILY08 PO Last administered on 11/19/18 08:41; Start 10/31/18 at 08:00 Hydralazine HCl (Apresoline) 10 mg PRN Q4HRS PRN PO HYPERTENSION SEE COMMENTS Last administered on 11/01/18 06:26; Start 10/30/18 at 21:00; Stop 11/01/18 at 12:54; Status DC Losartan Potassium (Cozaar) 100 mg DAILY PO Last administered on 11/19/18at 08: 42; Start 10/31/18 at 09:00 Magnesium Hydroxide (Milk Of Magnesia) 2,400 mg PRN QHS PRN PO CONSTIPATION; Start 10/30/18 at 18:45 Melatonin 9 mg QHS PO Last administered on 11/19/18at 20:05; Start 10/30/18 at 21:00 Memantine (Namenda) 10 mg BID PO Last administered on 11/19/18 20:05; Start at 21:00 Multi-Ingredient Ointment (Analgesic [place]) 1 karey PRN QID PRN TP MUSCLE PAIN; Start 10/30/18 at 18:45 Multivitamins/ Calcium (Thera-M Plus) 1 tab DAILY PO Last administered on 08:43; Start 10/31/18 at 09:00 Olanzapine (ZyPREXA) 2.5 mg QHS PO Last administered on 11/19/18 20:04; Start 10/30/18 at 21:00 Non-Formulary Medication (Pedi M.vit No.17 With Fluoride (Multivit-Fluor 0.5 Mg Tab Chw)) 0.5 mg DAILY PO ; Start 10/31/18 at 09:00; Status UNV Triamcinolone Acetonide (Kenalog) 1 karey BID TP Last administered on 10/31/18at 07:48; Start 10/30/18 at 21:00; Stop 10/31/18 at 12:34; Status DC Triamcinolone Acetonide (Kenalog) 1 karey PRN BID PRN TP RASH; Start 10/31/18 at 12:45 Hydralazine HCl (Apresoline) 25 mg Q8H PO Last administered on 11/01/18at 14:00 ; Start 11/01/18 at 14:00; Stop 11/01/18 at 17:21; Status DC Divalproex Sodium (Depakote Sprinkles) 125 mg 0900,1700 PO Last administered on 11/05/18 16:21; Start 11/01/18 at 17:00; Stop 11/05/18 at 16:49; Status DC Hydralazine HCl (Apresoline) 50 mg TID PO Last administered on 11/02/18at 13:33 ; Start 11/01/18 at 21:00; Stop 11/02/18 at 15:47; Status DC Hydralazine HCl (Apresoline) 100 mg TID PO Last administered on 11/19/18 20:04 ; Start 11/02/18 at 21:00 Nifedipine (Procardia Xl) 30 mg BID PO Last administered on 11/03/18at 07:59; Start 11/02/18 at 21:00; Stop 11/03/18 at 12:59; Status DC Mirtazapine (Remeron) 7.5 mg QHS PO Last administered on 11/19/18 20:04; Start 11/02/18 at 21:00 Nifedipine (Procardia Xl) 60 mg BID PO Last administered on 11/19/18 20:04; Start 11/03/18 at 21:00 Vitamin D (Vitamin D3) 50,000 unit WEEKLY PO Last administered on 11/17/18at 09: 44; Start 11/03/18 at 13:00 Divalproex Sodium (Depakote Sprinkles) 250 mg 0900,1700 PO Last administered on 11/08/18 16:37; Start 11/06/18 at 09:00; Stop 11/08/18 at 18:11; Status DC Divalproex Sodium (Depakote Sprinkles) 375 mg 0900,1700 PO Last administered on 11/12/18at 10:00; Start 11/09/18 at 09:00; Stop 11/12/18 at 16:37; Status DC Divalproex Sodium (Depakote Sprinkles) 500 mg 0900,1700 PO Last administered on 11/19/18 17:21; Start 11/12/18 at 17:00 Active Scripts Active Hydralazine Hcl 10 Mg Tablet 10 Mg PO PRN Q4HRS PRN 30 Days Reported Multiple Vitamin (Multivitamin With Minerals) 1 Each Tablet 1 Each PO DAILY Bengay (Menthol) 113 Gm Gel..gram. 1 Applic TP PRN QID PRN Milk Of Magnesia (Magnesium Hydroxide) 2,400 Mg/10 Ml Oral.susp 2,400 Mg PO PRN QHS PRN Maalox Maximum Strength Susp (Mag Hydrox/Al Hydrox/Simeth) 355 Ml Oral.susp 15 Ml PO PRN AFTMEALHC PRN Tylenol (Acetaminophen) 325 Mg Tablet 650 Mg PO PRN Q4HRS PRN Triamcinolone Acetonide 15 Gm Cream..g. 1 Karey TP BID Zoloft (Sertraline Hcl) 100 Mg Tablet 100 Mg PO DAILY Olanzapine 2.5 Mg Tablet 2.5 Mg PO QHS Multivit-Fluor 0.5 Mg Tab Chw (Pedi M.vit No.17 With Fluoride) 0.5 Mg Tab.chew 0.5 Mg PO DAILY Namenda (Memantine Hcl) 10 Mg Tablet 10 Mg PO BID Melatonin 3 Mg Tablet 9 Mg PO QHS Cozaar (Losartan Potassium) 100 Mg Tablet 100 Mg PO DAILY Glimepiride 1 Mg Tablet 1 Mg PO DAILY Docusate Sodium 100 Mg Capsule 100 Mg PO BID Aspirin 81 Mg Tab.chew 81 Mg PO DAILY I have reviewed the current psychotropics carefully including drug interactions. Risk benefit ratio favors no change other than as noted in my dictated progress note. Diagnosis: Problems: (1) Anxiety disorder (2) Impulse control disorder (3) Frontotemporal dementia with behavioral disturbance (4) Hypertensive urgency ALISHA MICHAELS MD Nov 19, 2018 22:40
[2018-11-20 06:55] VITALS: BP 147/87
[2018-11-20] MEDS: LOSARTAN 50 MG TABLET. PO SCH (08:29)
[2018-11-20] MEDS: DOCUSATE SODIUM 100 MG CAPSULE PO SCH ×2 (08:29→19:53)
[2018-11-20] MEDS: SERTRALINE 100 MG TABLET. PO SCH (08:29)
[2018-11-20] MEDS: ASPIRIN 81 MG TAB.CHEW PO SCH (08:29)
[2018-11-20] MEDS: MULTIVITAMIN with MINERAL TABLET. PO SCH (08:30)
[2018-11-20] MEDS: GLIMEPIRIDE 2 MG TABLET PO SCH (08:30)
[2018-11-20] MEDS: DIVALPROEX 125 MG CAP.SPRINK PO SCH ×2 (08:30→17:17)
[2018-11-20] MEDS: MEMANTINE 10 MG TABLET. PO SCH ×2 (08:30→19:54)
[2018-11-20 16:12] VITALS: BP 134/76
[2018-11-20] MEDS: OLANZapine 2.5 MG TABLET PO SCH (19:52)
[2018-11-20] MEDS: MIRTAZAPINE 7.5 MG TABLET. PO SCH (19:53)
[2018-11-20] MEDS: MELATONIN 3 MG TABLET PO SCH (19:53)
--- NOTE | 2018-11-20 21:59 | PDOC ---
Exam Note: Alvin Note: Please also refer to the separate dictated note~for this date of service dictated separately.~Patient seen individually. Discussed the patient with Nursing staff reviewed the chart.~Reviewed interim history and current functioning. Reviewed vital signs,~Labs/ Radiology~and current medications noted below. Continue current treatment with the changes noted in the dictated addendum note Assessment: Vital Signs: Vital Signs Date Time Temp Pulse Resp B/P (MAP) Pulse Ox O2 Delivery O2 Flow Rate FiO2 11/20/18 19:55 72 134/76 11/20/18 16:12 98.2 20 97 11/19/18 16:53 Room Air I&O Intake and Output 11/20/18 07:00 Intake Total 820 ml Balance 820 ml Intake Oral 820 ml Labs: Laboratory Tests Test 11/20/18 07:23 Glucose (Fingerstick) 68 mg/dL (70-99) L Current Medications: Meds: Current Medications Olanzapine (ZyPREXA ZYDIS) 2.5 mg PRN Q2HR PRN PO PSYCHOSIS Last administered on 11/14/18 17:21; Start 10/30/18 at 17:45 Acetaminophen (Tylenol) 650 mg PRN Q4HRS PRN PO PAIN / TEMP Last administered on 11/13/18 16:38; Start 10/30/18 at 18:00 Al Hydroxide/Mg Hydroxide (Mylanta Plus Xs) 15 ml PRN AFTMEALHC PRN PO DYSPEPSIA; Start 10/30/18 at 18:00 Sertraline HCl (Zoloft) 100 mg DAILY PO Last administered on 11/20/18 08:29; Start 10/31/18 at 09:00 Aspirin (Children'S Aspirin) 81 mg DAILYWBKFT PO Last administered on 08:29; Start 10/31/18 at 08:00 Docusate Sodium (Colace) 100 mg BID PO Last administered on 11/20/18 19:53; Start 10/30/18 at 21:00 Glimepiride (Amaryl) 1 mg DAILY08 PO Last administered on 11/20/18 08:30; Start 10/31/18 at 08:00 Hydralazine HCl (Apresoline) 10 mg PRN Q4HRS PRN PO HYPERTENSION SEE COMMENTS Last administered on 11/01/18 06:26; Start 10/30/18 at 21:00; Stop 11/01/18 at 12:54; Status DC Losartan Potassium (Cozaar) 100 mg DAILY PO Last administered on 11/20/18 08: 29; Start 10/31/18 at 09:00 Magnesium Hydroxide (Milk Of Magnesia) 2,400 mg PRN QHS PRN PO CONSTIPATION; Start 10/30/18 at 18:45 Melatonin 9 mg QHS PO Last administered on 11/20/18 19:53; Start 10/30/18 at 21:00 Memantine (Namenda) 10 mg BID PO Last administered on 11/20/18 19:54; Start at 21:00 Multi-Ingredient Ointment (Analgesic [place]) 1 karey PRN QID PRN TP MUSCLE PAIN; Start 10/30/18 at 18:45 Multivitamins/ Calcium (Thera-M Plus) 1 tab DAILY PO Last administered on 08:30; Start 10/31/18 at 09:00 Olanzapine (ZyPREXA) 2.5 mg QHS PO Last administered on 11/20/18 19:52; Start 10/30/18 at 21:00 Non-Formulary Medication (Pedi M.vit No.17 With Fluoride (Multivit-Fluor 0.5 Mg Tab Chw)) 0.5 mg DAILY PO ; Start 10/31/18 at 09:00; Status UNV Triamcinolone Acetonide (Kenalog) 1 karey BID TP Last administered on 10/31/18 07:48; Start 10/30/18 at 21:00; Stop 10/31/18 at 12:34; Status DC Triamcinolone Acetonide (Kenalog) 1 karey PRN BID PRN TP RASH; Start 10/31/18 at 12:45 Hydralazine HCl (Apresoline) 25 mg Q8H PO Last administered on 11/01/18at 14:00 ; Start 11/01/18 at 14:00; Stop 11/01/18 at 17:21; Status DC Divalproex Sodium (Depakote Sprinkles) 125 mg 0900,1700 PO Last administered on 11/05/18 16:21; Start 11/01/18 at 17:00; Stop 11/05/18 at 16:49; Status DC Hydralazine HCl (Apresoline) 50 mg TID PO Last administered on 11/02/18at 13:33 ; Start 11/01/18 at 21:00; Stop 11/02/18 at 15:47; Status DC Hydralazine HCl (Apresoline) 100 mg TID PO Last administered on 11/20/18at 19:54 ; Start 11/02/18 at 21:00 Nifedipine (Procardia Xl) 30 mg BID PO Last administered on 11/03/18at 07:59; Start 11/02/18 at 21:00; Stop 11/03/18 at 12:59; Status DC Mirtazapine (Remeron) 7.5 mg QHS PO Last administered on 11/20/18 19:53; Start 11/02/18 at 21:00 Nifedipine (Procardia Xl) 60 mg BID PO Last administered on 11/20/18at 19:55; Start 11/03/18 at 21:00 Vitamin D (Vitamin D3) 50,000 unit WEEKLY PO Last administered on 11/17/18at 09: 44; Start 11/03/18 at 13:00 Divalproex Sodium (Depakote Sprinkles) 250 mg 0900,1700 PO Last administered on 11/08/18at 16:37; Start 11/06/18 at 09:00; Stop 11/08/18 at 18:11; Status DC Divalproex Sodium (Depakote Sprinkles) 375 mg 0900,1700 PO Last administered on 11/12/18at 10:00; Start 11/09/18 at 09:00; Stop 11/12/18 at 16:37; Status DC Divalproex Sodium (Depakote Sprinkles) 500 mg 0900,1700 PO Last administered on 11/20/18at 17:17; Start 11/12/18 at 17:00 Active Scripts Active Hydralazine Hcl 10 Mg Tablet 10 Mg PO PRN Q4HRS PRN 30 Days Reported Multiple Vitamin (Multivitamin With Minerals) 1 Each Tablet 1 Each PO DAILY Bengay (Menthol) 113 Gm Gel..gram. 1 Applic TP PRN QID PRN Milk Of Magnesia (Magnesium Hydroxide) 2,400 Mg/10 Ml Oral.susp 2,400 Mg PO PRN QHS PRN Maalox Maximum Strength Susp (Mag Hydrox/Al Hydrox/Simeth) 355 Ml Oral.susp 15 Ml PO PRN AFTMEALHC PRN Tylenol (Acetaminophen) 325 Mg Tablet 650 Mg PO PRN Q4HRS PRN Triamcinolone Acetonide 15 Gm Cream..g. 1 Karey TP BID Zoloft (Sertraline Hcl) 100 Mg Tablet 100 Mg PO DAILY Olanzapine 2.5 Mg Tablet 2.5 Mg PO QHS Multivit-Fluor 0.5 Mg Tab Chw (Pedi M.vit No.17 With Fluoride) 0.5 Mg Tab.chew 0.5 Mg PO DAILY Namenda (Memantine Hcl) 10 Mg Tablet 10 Mg PO BID Melatonin 3 Mg Tablet 9 Mg PO QHS Cozaar (Losartan Potassium) 100 Mg Tablet 100 Mg PO DAILY Glimepiride 1 Mg Tablet 1 Mg PO DAILY Docusate Sodium 100 Mg Capsule 100 Mg PO BID Aspirin 81 Mg Tab.chew 81 Mg PO DAILY I have reviewed the current psychotropics carefully including drug interactions. Risk benefit ratio favors no change other than as noted in my dictated progress note. Diagnosis: Problems: (1) Anxiety disorder (2) Impulse control disorder (3) Frontotemporal dementia with behavioral disturbance (4) Hypertensive urgency ALISHA MICHAELS MD Nov 20, 2018 21:58
[2018-11-21 05:56] VITALS: BP 112/69
[2018-11-21] MEDS: GLIMEPIRIDE 2 MG TABLET PO SCH (07:53)
[2018-11-21] MEDS: ASPIRIN 81 MG TAB.CHEW PO SCH (07:54)
[2018-11-21] MEDS: DOCUSATE SODIUM 100 MG CAPSULE PO SCH ×2 (07:54→19:59)
[2018-11-21] MEDS: LOSARTAN 50 MG TABLET. PO SCH (07:55)
[2018-11-21] MEDS: MEMANTINE 10 MG TABLET. PO SCH ×2 (07:59→19:59)
[2018-11-21] MEDS: DIVALPROEX 125 MG CAP.SPRINK PO SCH ×2 (07:59→17:24)
[2018-11-21] MEDS: SERTRALINE 100 MG TABLET. PO SCH (08:06)
[2018-11-21] MEDS: MULTIVITAMIN with MINERAL TABLET. PO SCH (08:06)
[2018-11-21 08:20] LABS: BASO # 0.1 x10^3/uL (0.0-0.2); BASO % 1 % (0-3); EOS # 0.3 x10^3/uL (0.0-0.7); EOS % 7 % (0-3); HEMATOCRIT 40.1 % (39.0-53.0); HEMOGLOBIN 13.3 g/dL (13.0-17.5); LYMPH # 1.2 x10^3/uL (1.0-4.8); LYMPH % 25 % (24-48); MEAN CORPUSCULAR HEMOGLOBIN 31 pg (25-35); MEAN CORPUSCULAR HGB CONC 33 g/dL (31-37); MEAN CORPUSCULAR VOLUME 92 fL (79-100); MONO # 0.7 x10^3/uL (0.0-1.1); MONO % 14 % (0-9); NEUT # 2.6 x10^3uL (1.8-7.7); NEUT % 53 % (31-73); PLATELET COUNT 279 x10^3/uL (140-400); RED BLOOD COUNT 4.35 x10^6/uL (4.30-5.70); RED CELL DISTRIBUTION WIDTH 13.3 % (11.5-14.5); WHITE BLOOD COUNT 4.9 x10^3/uL (4.0-11.0)
[2018-11-21 08:35] LABS: ALBUMIN 3.7 g/dL (3.4-5.0); ALBUMIN/GLOBULIN RATIO 0.9 (1.0-1.7); CALCIUM 8.9 mg/dL (8.5-10.1); CREATININE 1.4 mg/dL (0.7-1.3); POTASSIUM 4.1 mmol/L (3.5-5.1); TOTAL BILIRUBIN 0.3 mg/dL (0.2-1.0); TOTAL PROTEIN 7.8 g/dL (6.4-8.2)
[2018-11-21 13:56] VITALS: BP 115/65
[2018-11-21 16:16] VITALS: BP 129/72
[2018-11-21] MEDS: MIRTAZAPINE 7.5 MG TABLET. PO SCH (19:59)
[2018-11-21] MEDS: OLANZapine 2.5 MG TABLET PO SCH (19:59)
[2018-11-21] MEDS: MELATONIN 3 MG TABLET PO SCH (19:59)
--- NOTE | 2018-11-21 22:39 | PDOC ---
Exam Note: Alvin Note: Please also refer to the separate dictated note~for this date of service dictated separately.~Patient seen individually. Discussed the patient with Nursing staff reviewed the chart.~Reviewed interim history and current functioning. Reviewed vital signs,~Labs/ Radiology~and current medications noted below. Continue current treatment with the changes noted in the dictated addendum note Assessment: Vital Signs: Vital Signs Date Time Temp Pulse Resp B/P (MAP) Pulse Ox O2 Delivery O2 Flow Rate FiO2 11/21/18 20:13 66 144/76 11/21/18 16:16 97.6 20 95 11/19/18 16:53 Room Air I&O Intake and Output 11/21/18 07:00 Intake Total 1320 ml Balance 1320 ml Intake Oral 1320 ml Labs: Laboratory Tests Test 11/21/18 07:30 11/21/18 07:54 Glucose (Fingerstick) 64 mg/dL (70-99) L White Blood Count 4.9 x10^3/uL (4.0-11.0) Red Blood Count 4.35 x10^6/uL (4.30-5.70) Hemoglobin 13.3 g/dL (13.0-17.5) Hematocrit 40.1 % (39.0-53.0) Mean Corpuscular Volume 92 fL (79-100) Mean Corpuscular Hemoglobin 31 pg (25-35) Mean Corpuscular Hemoglobin Concent 33 g/dL (31-37) Red Cell Distribution Width 13.3 % (11.5-14.5) Platelet Count 279 x10^3/uL (140-400) Neutrophils (%) (Auto) 53 % (31-73) Lymphocytes (%) (Auto) 25 % (24-48) Monocytes (%) (Auto) 14 % (0-9) H Eosinophils (%) (Auto) 7 % (0-3) H Basophils (%) (Auto) 1 % (0-3) Neutrophils # (Auto) 2.6 x10^3uL (1.8-7.7) Lymphocytes # (Auto) 1.2 x10^3/uL (1.0-4.8) Monocytes # (Auto) 0.7 x10^3/uL (0.0-1.1) Eosinophils # (Auto) 0.3 x10^3/uL (0.0-0.7) Basophils # (Auto) 0.1 x10^3/uL (0.0-0.2) Sodium Level 146 mmol/L (136-145) H Potassium Level 4.1 mmol/L (3.5-5.1) Chloride Level 105 mmol/L (98-107) Carbon Dioxide Level 34 mmol/L (21-32) H Anion Gap 7 (6-14) Blood Urea Nitrogen 21 mg/dL (8-26) Creatinine 1.4 mg/dL (0.7-1.3) H Estimated GFR (Cockcroft-Gault) 61.0 BUN/Creatinine Ratio 15 (6-20) Glucose Level 86 mg/dL (70-99) Calcium Level 8.9 mg/dL (8.5-10.1) Total Bilirubin 0.3 mg/dL (0.2-1.0) Aspartate Amino Transferase (AST) 38 U/L (15-37) H Alanine Aminotransferase (ALT) 52 U/L (16-63) Alkaline Phosphatase 78 U/L (46-116) Total Protein 7.8 g/dL (6.4-8.2) Albumin 3.7 g/dL (3.4-5.0) Albumin/Globulin Ratio 0.9 (1.0-1.7) L Current Medications: Meds: Current Medications Olanzapine (ZyPREXA ZYDIS) 2.5 mg PRN Q2HR PRN PO PSYCHOSIS Last administered on 11/14/18at 17:21; Start 10/30/18 at 17:45 Acetaminophen (Tylenol) 650 mg PRN Q4HRS PRN PO PAIN / TEMP Last administered on 11/13/18at 16:38; Start 10/30/18 at 18:00 Al Hydroxide/Mg Hydroxide (Mylanta Plus Xs) 15 ml PRN AFTMEALHC PRN PO DYSPEPSIA; Start 10/30/18 at 18:00 Sertraline HCl (Zoloft) 100 mg DAILY PO Last administered on 11/21/18at 08:06; Start 10/31/18 at 09:00 Aspirin (Children'S Aspirin) 81 mg DAILYWBKFT PO Last administered on at 07:54; Start 10/31/18 at 08:00 Docusate Sodium (Colace) 100 mg BID PO Last administered on 11/21/18 19:59; Start 10/30/18 at 21:00 Glimepiride (Amaryl) 1 mg DAILY08 PO Last administered on 11/21/18 07:53; Start 10/31/18 at 08:00 Hydralazine HCl (Apresoline) 10 mg PRN Q4HRS PRN PO HYPERTENSION SEE COMMENTS Last administered on 11/01/18 06:26; Start 10/30/18 at 21:00; Stop 11/01/18 at 12:54; Status DC Losartan Potassium (Cozaar) 100 mg DAILY PO Last administered on 11/21/18 07: 55; Start 10/31/18 at 09:00 Magnesium Hydroxide (Milk Of Magnesia) 2,400 mg PRN QHS PRN PO CONSTIPATION; Start 10/30/18 at 18:45 Melatonin 9 mg QHS PO Last administered on 11/21/18 19:59; Start 10/30/18 at 21:00 Memantine (Namenda) 10 mg BID PO Last administered on 11/21/18 19:59; Start at 21:00 Multi-Ingredient Ointment (Analgesic [place]) 1 karey PRN QID PRN TP MUSCLE PAIN; Start 10/30/18 at 18:45 Multivitamins/ Calcium (Thera-M Plus) 1 tab DAILY PO Last administered on 08:06; Start 10/31/18 at 09:00 Olanzapine (ZyPREXA) 2.5 mg QHS PO Last administered on 11/21/18 19:59; Start 10/30/18 at 21:00 Non-Formulary Medication (Pedi M.vit No.17 With Fluoride (Multivit-Fluor 0.5 Mg Tab Chw)) 0.5 mg DAILY PO ; Start 10/31/18 at 09:00; Status UNV Triamcinolone Acetonide (Kenalog) 1 karey BID TP Last administered on 10/31/18at 07:48; Start 10/30/18 at 21:00; Stop 10/31/18 at 12:34; Status DC Triamcinolone Acetonide (Kenalog) 1 karey PRN BID PRN TP RASH; Start 10/31/18 at 12:45 Hydralazine HCl (Apresoline) 25 mg Q8H PO Last administered on 11/01/18at 14:00 ; Start 11/01/18 at 14:00; Stop 11/01/18 at 17:21; Status DC Divalproex Sodium (Depakote Sprinkles) 125 mg 0900,1700 PO Last administered on 11/05/18 16:21; Start 11/01/18 at 17:00; Stop 11/05/18 at 16:49; Status DC Hydralazine HCl (Apresoline) 50 mg TID PO Last administered on 11/02/18at 13:33 ; Start 11/01/18 at 21:00; Stop 11/02/18 at 15:47; Status DC Hydralazine HCl (Apresoline) 100 mg TID PO Last administered on 11/21/18 20:13 ; Start 11/02/18 at 21:00 Nifedipine (Procardia Xl) 30 mg BID PO Last administered on 11/03/18at 07:59; Start 11/02/18 at 21:00; Stop 11/03/18 at 12:59; Status DC Mirtazapine (Remeron) 7.5 mg QHS PO Last administered on 11/21/18 19:59; Start 11/02/18 at 21:00 Nifedipine (Procardia Xl) 60 mg BID PO Last administered on 11/21/18 20:13; Start 11/03/18 at 21:00 Vitamin D (Vitamin D3) 50,000 unit WEEKLY PO Last administered on 11/17/18at 09: 44; Start 11/03/18 at 13:00 Divalproex Sodium (Depakote Sprinkles) 250 mg 0900,1700 PO Last administered on 11/08/18 16:37; Start 11/06/18 at 09:00; Stop 11/08/18 at 18:11; Status DC Divalproex Sodium (Depakote Sprinkles) 375 mg 0900,1700 PO Last administered on 11/12/18at 10:00; Start 11/09/18 at 09:00; Stop 11/12/18 at 16:37; Status DC Divalproex Sodium (Depakote Sprinkles) 500 mg 0900,1700 PO Last administered on 11/21/18at 17:24; Start 11/12/18 at 17:00 Active Scripts Active Hydralazine Hcl 10 Mg Tablet 10 Mg PO PRN Q4HRS PRN 30 Days Reported Multiple Vitamin (Multivitamin With Minerals) 1 Each Tablet 1 Each PO DAILY [place] (Menthol) 113 Gm Gel..gram. 1 Applic TP PRN QID PRN Milk Of Magnesia (Magnesium Hydroxide) 2,400 Mg/10 Ml Oral.susp 2,400 Mg PO PRN QHS PRN Maalox Maximum Strength Susp (Mag Hydrox/Al Hydrox/Simeth) 355 Ml Oral.susp 15 Ml PO PRN AFTMEALHC PRN Tylenol (Acetaminophen) 325 Mg Tablet 650 Mg PO PRN Q4HRS PRN Triamcinolone Acetonide 15 Gm Cream..g. 1 Karey TP BID Zoloft (Sertraline Hcl) 100 Mg Tablet 100 Mg PO DAILY Olanzapine 2.5 Mg Tablet 2.5 Mg PO QHS Multivit-Fluor 0.5 Mg Tab Chw (Pedi M.vit No.17 With Fluoride) 0.5 Mg Tab.chew 0.5 Mg PO DAILY Namenda (Memantine Hcl) 10 Mg Tablet 10 Mg PO BID Melatonin 3 Mg Tablet 9 Mg PO QHS Cozaar (Losartan Potassium) 100 Mg Tablet 100 Mg PO DAILY Glimepiride 1 Mg Tablet 1 Mg PO DAILY Docusate Sodium 100 Mg Capsule 100 Mg PO BID Aspirin 81 Mg Tab.chew 81 Mg PO DAILY I have reviewed the current psychotropics carefully including drug interactions. Risk benefit ratio favors no change other than as noted in my dictated progress note. Diagnosis: Problems: (1) Anxiety disorder (2) Impulse control disorder (3) Frontotemporal dementia with behavioral disturbance (4) Hypertensive urgency ALISHA MICHAELS MD Nov 21, 2018 22:39
--- NOTE | 2018-11-21 23:08 | PN ---
DATE: 11/19/2018 PSYCHIATRIC PROGRESS NOTE This late entry 11/19/2018 covers elements not covered in my initial note. SUBJECTIVE: I met with the patient in the evening. The patient slept 6-1/2 hours previous night. The patient remains confused, but otherwise pleasant, redirectable, not aggressive. The patient slept 6-1/2 hours previous evening. REVIEW OF SYSTEMS: No CV, , eye, ENT or pulmonary system symptoms on review. Reliability poor. He is pleasant, smiling, oblivious of his surroundings as I met with him. MENTAL STATUS EXAM: Oriented to himself. Insight, judgment, recent and remote memory, attention, concentration, fund of knowledge poor, consistent with his diagnosis. IMPRESSION: Major neurocognitive disorder, frontotemporal with delusion, depression, behavioral disturbance; anxiety disorder, unspecified; impulse control disorder, unspecified. PLAN: No change from initial note. MAN Kesha MICHAELS MD DR: MARIA GUADALUPE/steven JOB#: [id number] / [id number]
--- NOTE | 2018-11-21 23:10 | PN ---
DATE: 11/20/2018 PSYCHIATRIC PROGRESS NOTE This late entry 11/20/2018 covers elements not covered in my initial note. SUBJECTIVE: I met with the patient in the evening. The patient slept 7-1/4 hours previous night. He remains confused with very appropriate, oblivious of his surroundings. REVIEW OF SYSTEMS: No CV, , pulmonary, eye, ENT system symptoms on review. Reliability poor. MENTAL STATUS EXAM: Oriented to himself. Insight, judgment, recent and remote memory, attention, concentration, fund of knowledge poor, consistent with his diagnosis mentioned in my initial note. IMPRESSION: Major neurocognitive disorder, frontotemporal with delusion, depression, behavioral disturbance. Rest unchanged. PLAN: No change from initial note. Transition to home with outpatient treatment in the next couple of days. MAN Kesha MICHAELS MD DR: MARIA GUADALUPE/steven JOB#: [id number] / [id number]
[2018-11-22 06:17] VITALS: BP 134/76
[2018-11-22] MEDS: GLIMEPIRIDE 2 MG TABLET PO SCH (07:53)
[2018-11-22] MEDS: ASPIRIN 81 MG TAB.CHEW PO SCH (07:54)
[2018-11-22] MEDS: DOCUSATE SODIUM 100 MG CAPSULE PO SCH ×2 (07:55→20:20)
[2018-11-22] MEDS: LOSARTAN 50 MG TABLET. PO SCH (07:56)
[2018-11-22] MEDS: DIVALPROEX 125 MG CAP.SPRINK PO SCH ×2 (07:56→17:14)
[2018-11-22] MEDS: MEMANTINE 10 MG TABLET. PO SCH ×2 (07:57→20:21)
[2018-11-22] MEDS: MULTIVITAMIN with MINERAL TABLET. PO SCH (07:59)
[2018-11-22] MEDS: SERTRALINE 100 MG TABLET. PO SCH (07:59)
[2018-11-22 14:37] VITALS: BP 143/80
[2018-11-22 16:22] VITALS: BP 145/69
[2018-11-22] MEDS: MIRTAZAPINE 7.5 MG TABLET. PO SCH (20:20)
[2018-11-22] MEDS: OLANZapine 2.5 MG TABLET PO SCH (20:21)
[2018-11-22] MEDS: MELATONIN 3 MG TABLET PO SCH (20:22)
--- NOTE | 2018-11-22 22:27 | PDOC ---
Exam Note: Alvin Note: Please also refer to the separate dictated note~for this date of service dictated separately.~Patient seen individually. Discussed the patient with Nursing staff reviewed the chart.~Reviewed interim history and current functioning. Reviewed vital signs,~Labs/ Radiology~and current medications noted below. Continue current treatment with the changes noted in the dictated addendum note Assessment: Vital Signs: Vital Signs Date Time Temp Pulse Resp B/P (MAP) Pulse Ox O2 Delivery O2 Flow Rate FiO2 11/22/18 20:21 60 145/69 11/22/18 16:22 98.5 18 100 11/19/18 16:53 Room Air I&O Intake and Output 11/22/18 07:00 Intake Total 1200 ml Balance 1200 ml Intake Oral 1200 ml Labs: Laboratory Tests Test 11/22/18 07:12 Glucose (Fingerstick) 68 mg/dL (70-99) L Current Medications: Meds: Current Medications Olanzapine (ZyPREXA ZYDIS) 2.5 mg PRN Q2HR PRN PO PSYCHOSIS Last administered on 11/14/18 17:21; Start 10/30/18 at 17:45 Acetaminophen (Tylenol) 650 mg PRN Q4HRS PRN PO PAIN / TEMP Last administered on 11/13/18 16:38; Start 10/30/18 at 18:00 Al Hydroxide/Mg Hydroxide (Mylanta Plus Xs) 15 ml PRN AFTMEALHC PRN PO DYSPEPSIA; Start 10/30/18 at 18:00 Sertraline HCl (Zoloft) 100 mg DAILY PO Last administered on 11/22/18 07:59; Start 10/31/18 at 09:00 Aspirin (Children'S Aspirin) 81 mg DAILYWBKFT PO Last administered on 07:54; Start 10/31/18 at 08:00 Docusate Sodium (Colace) 100 mg BID PO Last administered on 11/22/18 20:20; Start 10/30/18 at 21:00 Glimepiride (Amaryl) 1 mg DAILY08 PO Last administered on 11/22/18 07:53; Start 10/31/18 at 08:00 Hydralazine HCl (Apresoline) 10 mg PRN Q4HRS PRN PO HYPERTENSION SEE COMMENTS Last administered on 11/01/18 06:26; Start 10/30/18 at 21:00; Stop 11/01/18 at 12:54; Status DC Losartan Potassium (Cozaar) 100 mg DAILY PO Last administered on 11/22/18 07: 56; Start 10/31/18 at 09:00 Magnesium Hydroxide (Milk Of Magnesia) 2,400 mg PRN QHS PRN PO CONSTIPATION; Start 10/30/18 at 18:45 Melatonin 9 mg QHS PO Last administered on 11/22/18 20:22; Start 10/30/18 at 21:00 Memantine (Namenda) 10 mg BID PO Last administered on 11/22/18 20:21; Start at 21:00 Multi-Ingredient Ointment (Analgesic [place]) 1 karey PRN QID PRN TP MUSCLE PAIN; Start 10/30/18 at 18:45 Multivitamins/ Calcium (Thera-M Plus) 1 tab DAILY PO Last administered on 07:59; Start 10/31/18 at 09:00 Olanzapine (ZyPREXA) 2.5 mg QHS PO Last administered on 11/22/18 20:21; Start 10/30/18 at 21:00 Non-Formulary Medication (Pedi M.vit No.17 With Fluoride (Multivit-Fluor 0.5 Mg Tab Chw)) 0.5 mg DAILY PO ; Start 10/31/18 at 09:00; Status UNV Triamcinolone Acetonide (Kenalog) 1 karey BID TP Last administered on 10/31/18 07:48; Start 10/30/18 at 21:00; Stop 10/31/18 at 12:34; Status DC Triamcinolone Acetonide (Kenalog) 1 karey PRN BID PRN TP RASH; Start 10/31/18 at 12:45 Hydralazine HCl (Apresoline) 25 mg Q8H PO Last administered on 11/01/18at 14:00 ; Start 11/01/18 at 14:00; Stop 11/01/18 at 17:21; Status DC Divalproex Sodium (Depakote Sprinkles) 125 mg 0900,1700 PO Last administered on 11/05/18 16:21; Start 11/01/18 at 17:00; Stop 11/05/18 at 16:49; Status DC Hydralazine HCl (Apresoline) 50 mg TID PO Last administered on 11/02/18 13:33 ; Start 11/01/18 at 21:00; Stop 11/02/18 at 15:47; Status DC Hydralazine HCl (Apresoline) 100 mg TID PO Last administered on 11/22/18 20:20 ; Start 11/02/18 at 21:00 Nifedipine (Procardia Xl) 30 mg BID PO Last administered on 11/03/18at 07:59; Start 11/02/18 at 21:00; Stop 11/03/18 at 12:59; Status DC Mirtazapine (Remeron) 7.5 mg QHS PO Last administered on 11/22/18 20:20; Start 11/02/18 at 21:00 Nifedipine (Procardia Xl) 60 mg BID PO Last administered on 11/22/18 20:21; Start 11/03/18 at 21:00 Vitamin D (Vitamin D3) 50,000 unit WEEKLY PO Last administered on 11/17/18 09: 44; Start 11/03/18 at 13:00 Divalproex Sodium (Depakote Sprinkles) 250 mg 0900,1700 PO Last administered on 11/08/18 16:37; Start 11/06/18 at 09:00; Stop 11/08/18 at 18:11; Status DC Divalproex Sodium (Depakote Sprinkles) 375 mg 0900,1700 PO Last administered on 11/12/18 10:00; Start 11/09/18 at 09:00; Stop 11/12/18 at 16:37; Status DC Divalproex Sodium (Depakote Sprinkles) 500 mg 0900,1700 PO Last administered on 11/22/18 17:14; Start 11/12/18 at 17:00 Active Scripts Active Hydralazine Hcl 10 Mg Tablet 10 Mg PO PRN Q4HRS PRN 30 Days Reported Multiple Vitamin (Multivitamin With Minerals) 1 Each Tablet 1 Each PO DAILY Bengay (Menthol) 113 Gm Gel..gram. 1 Applic TP PRN QID PRN Milk Of Magnesia (Magnesium Hydroxide) 2,400 Mg/10 Ml Oral.susp 2,400 Mg PO PRN QHS PRN Maalox Maximum Strength Susp (Mag Hydrox/Al Hydrox/Simeth) 355 Ml Oral.susp 15 Ml PO PRN AFTMEALHC PRN Tylenol (Acetaminophen) 325 Mg Tablet 650 Mg PO PRN Q4HRS PRN Triamcinolone Acetonide 15 Gm Cream..g. 1 Karey TP BID Zoloft (Sertraline Hcl) 100 Mg Tablet 100 Mg PO DAILY Olanzapine 2.5 Mg Tablet 2.5 Mg PO QHS Multivit-Fluor 0.5 Mg Tab Chw (Pedi M.vit No.17 With Fluoride) 0.5 Mg Tab.chew 0.5 Mg PO DAILY Namenda (Memantine Hcl) 10 Mg Tablet 10 Mg PO BID Melatonin 3 Mg Tablet 9 Mg PO QHS Cozaar (Losartan Potassium) 100 Mg Tablet 100 Mg PO DAILY Glimepiride 1 Mg Tablet 1 Mg PO DAILY Docusate Sodium 100 Mg Capsule 100 Mg PO BID Aspirin 81 Mg Tab.chew 81 Mg PO DAILY I have reviewed the current psychotropics carefully including drug interactions. Risk benefit ratio favors no change other than as noted in my dictated progress note. Diagnosis: Problems: (1) Anxiety disorder (2) Impulse control disorder (3) Frontotemporal dementia with behavioral disturbance (4) Hypertensive urgency ALISHA MICHAELS MD Nov 22, 2018 22:27
[2018-11-22] MEDS ORDERED: CHOL500021 PO (23:58)
[2018-11-23] MEDS ORDERED: DIVA125C2 PO
[2018-11-23] MEDS ORDERED: MIRT15TA PO (00:04)
[2018-11-23] MEDS ORDERED: NIFE60TA14 PO (00:05)
[2018-11-23] MEDS ORDERED: OLAN5TAB5 PO (00:09)
[2018-11-23] MEDS ORDERED: HYDR100T24 PO (00:11)
[2018-11-23 05:58] VITALS: BP 144/83
[2018-11-23] MEDS: DOCUSATE SODIUM 100 MG CAPSULE PO SCH (08:29)
[2018-11-23] MEDS: DIVALPROEX 125 MG CAP.SPRINK PO SCH ×2 (08:29→16:59)
[2018-11-23] MEDS: LOSARTAN 50 MG TABLET. PO SCH (08:30)
[2018-11-23] MEDS: SERTRALINE 100 MG TABLET. PO SCH (08:30)
[2018-11-23] MEDS: MEMANTINE 10 MG TABLET. PO SCH (08:30)
[2018-11-23] MEDS: MULTIVITAMIN with MINERAL TABLET. PO SCH (08:31)
[2018-11-23] MEDS: ASPIRIN 81 MG TAB.CHEW PO SCH (08:32)
[2018-11-23] MEDS: GLIMEPIRIDE 2 MG TABLET PO SCH (08:32)
[2018-11-23 16:30] VITALS: BP 136/80
--- NOTE | 2018-11-23 18:58 | DS ---
DATE OF DISCHARGE: DISCHARGE SUMMARY/PSYCHIATRIC PROGRESS NOTE This note covers elements not covered in my initial note 11/23/2018. REASON FOR ADMISSION: Please refer to the admission history for details. Briefly, the patient is a 68-year-old -[place] male referred to us by Dr. Hicks, his primary care physician at the [facility]. After Dr. Hicks called us on cellphone on account of the patient's marked agitation, active hallucinations, seeing people that were not there, wandering, confused, poor concentration, paranoia, worsening anxiety. Behaviors were deemed dangerous, unmanageable living at home with his family and he is referred for inpatient psychiatric treatment, having failed outpatient interventions with Dr. Hicks. SIGNIFICANT FINDINGS AND CLINICAL COURSE: Following admission, the patient was seen daily individually by myself from a psychiatric standpoint, medical followup with Dr. Vyas. The patient's symptoms were consistent with his diagnosis of frontotemporal dementia with delusion, depression, behavioral disturbance. He was quite anxious, agitated, restless. Adjustments were made in his psychotropics. He seemed to respond to a combination of melatonin 9 mg at bedtime, Namenda 10 mg b.i.d., Zyprexa 2.5 mg at bedtime, Zoloft 100 mg a day, Remeron 7.5 mg at bedtime, Depakote 500 mg 0900 and 1700 with a valproic acid level at 37, slightly subtherapeutic, but clinically adequate. He is also on Zyprexa p.r.n. REVIEW OF SYSTEMS: Prior to discharge on 11/23/2018, no CV, , pulmonary, eye, ENT system symptoms on review. Reliability poor. MENTAL STATUS EXAM: Oriented to himself. Insight, judgment, recent and remote memory, attention, concentration, fund of knowledge poor, consistent with his diagnosis. FINAL DIAGNOSES: Major neurocognitive disorder, frontotemporal with delusion, depression, behavioral disturbance; anxiety disorder, unspecified; impulse control disorder, unspecified. Rest unchanged from admission. DISCHARGE MEDICATIONS: Please refer to the MRAD. DISCHARGE INSTRUCTIONS: Outpatient psychiatric and medical followup at the [facility] outpatient clinic with Dr. Hicks. Time for discharge day management greater than 30 minutes. MAN Kesha MICHAELS MD DR: MARIA GUADALUPE/steven JOB#: [id number] / [id number]
--- NOTE | 2018-11-23 22:03 | PN ---
DATE: 11/21/2018 PSYCHIATRIC PROGRESS NOTE This late entry 11/21/2018 covers elements not covered in my initial note. SUBJECTIVE: I met with the patient in the evening. The patient slept 7-1/4 hours previous night. The patient remains confused, withdrawn, not aggressive. He is oriented just to himself. REVIEW OF SYSTEMS: No CV, , pulmonary, eye, ENT system symptoms on review. Reliability poor. MENTAL STATUS EXAM: Oriented to himself. Insight, judgment, recent and remote memory, attention, concentration, fund of knowledge poor, consistent with his diagnosis mentioned in my initial note. PLAN: No change from initial note. ALISHA MICHAELS MD DR: MARIA GUADALUPE/steven JOB#: [id number] / [id number]
--- NOTE | 2018-11-23 22:04 | PN ---
DATE: 11/22/2018 PSYCHIATRIC PROGRESS NOTE This late entry 11/22/2018 covers elements not covered in my initial note. SUBJECTIVE: I met with the patient in the evening. The patient slept 3-3/4 hours previous night, otherwise he remains confused, oriented just to himself, not aggressive. REVIEW OF SYSTEMS: No CV, , pulmonary, eye, ENT system symptoms on review. Reliability poor. MENTAL STATUS EXAM: Oriented to himself. Insight, judgment, recent and remote memory, attention, concentration, fund of knowledge poor, consistent with his diagnosis mentioned in my initial note. PLAN: No change from initial note with possible discharge home with outpatient treatment on 11/23/2018. MAN Kesha MICHAELS MD DR: MARIA GUADALUPE/steven JOB#: [id number] / [id number]
--- NOTE | 2018-11-23 22:27 | PDOC ---
Exam Note: Alvin Note: Please also refer to the separate dictated note~for this date of service dictated separately.~Patient seen individually. Discussed the patient with Nursing staff reviewed the chart.~Reviewed interim history and current functioning. Reviewed vital signs,~Labs/ Radiology~and current medications noted below. Continue current treatment with the changes noted in the dictated addendum note Assessment: Vital Signs: Vital Signs Date Time Temp Pulse Resp B/P (MAP) Pulse Ox O2 Delivery O2 Flow Rate FiO2 11/23/18 16:30 98.6 73 16 136/80 (98) 99 Room Air I&O Intake and Output 11/23/18 07:00 Intake Total 1080 ml Balance 1080 ml Intake Oral 1080 ml Labs: Laboratory Tests Test 11/23/18 07:31 Glucose (Fingerstick) 74 mg/dL (70-99) Current Medications: Meds: Current Medications Olanzapine (ZyPREXA ZYDIS) 2.5 mg PRN Q2HR PRN PO PSYCHOSIS Last administered on 11/14/18at 17:21; Start 10/30/18 at 17:45; Stop 11/23/18 at 19:06; Status DC Acetaminophen (Tylenol) 650 mg PRN Q4HRS PRN PO PAIN / TEMP Last administered on 11/13/18at 16:38; Start 10/30/18 at 18:00; Stop 11/23/18 at 19:06; Status DC Al Hydroxide/Mg Hydroxide (Mylanta Plus Xs) 15 ml PRN AFTMEALHC PRN PO DYSPEPSIA; Start 10/30/18 at 18:00; Stop 11/23/18 at 19:06; Status DC Sertraline HCl (Zoloft) 100 mg DAILY PO Last administered on 11/23/18at 08:30; Start 10/31/18 at 09:00; Stop 11/23/18 at 19:06; Status DC Aspirin (Children'S Aspirin) 81 mg DAILYWBKFT PO Last administered on at 08:32; Start 10/31/18 at 08:00; Stop 11/23/18 at 19:06; Status DC Docusate Sodium (Colace) 100 mg BID PO Last administered on 11/23/18at 08:29; Start 10/30/18 at 21:00; Stop 11/23/18 at 19:06; Status DC Glimepiride (Amaryl) 1 mg DAILY08 PO Last administered on 11/23/18at 08:32; Start 10/31/18 at 08:00; Stop 11/23/18 at 19:06; Status DC Hydralazine HCl (Apresoline) 10 mg PRN Q4HRS PRN PO HYPERTENSION SEE COMMENTS Last administered on 11/01/18at 06:26; Start 10/30/18 at 21:00; Stop 11/01/18 at 12:54; Status DC Losartan Potassium (Cozaar) 100 mg DAILY PO Last administered on 11/23/18at 08: 30; Start 10/31/18 at 09:00; Stop 11/23/18 at 19:06; Status DC Magnesium Hydroxide (Milk Of Magnesia) 2,400 mg PRN QHS PRN PO CONSTIPATION; Start 10/30/18 at 18:45; Stop 11/23/18 at 19:06; Status DC Melatonin 9 mg QHS PO Last administered on 11/22/18at 20:22; Start 10/30/18 at 21:00; Stop 11/23/18 at 19:06; Status DC Memantine (Namenda) 10 mg BID PO Last administered on 11/23/18at 08:30; Start at 21:00; Stop 11/23/18 at 19:06; Status DC Multi-Ingredient Ointment (Analgesic [place]) 1 karey PRN QID PRN TP MUSCLE PAIN; Start 10/30/18 at 18:45; Stop 11/23/18 at 19:06; Status DC Multivitamins/ Calcium (Thera-M Plus) 1 tab DAILY PO Last administered on at 08:31; Start 10/31/18 at 09:00; Stop 11/23/18 at 19:06; Status DC Olanzapine (ZyPREXA) 2.5 mg QHS PO Last administered on 11/22/18at 20:21; Start 10/30/18 at 21:00; Stop 11/23/18 at 19:06; Status DC Non-Formulary Medication (Pedi M.vit No.17 With Fluoride (Multivit-Fluor 0.5 Mg Tab Chw)) 0.5 mg DAILY PO ; Start 10/31/18 at 09:00; Status UNV Triamcinolone Acetonide (Kenalog) 1 karey BID TP Last administered on 10/31/18at 07:48; Start 10/30/18 at 21:00; Stop 10/31/18 at 12:34; Status DC Triamcinolone Acetonide (Kenalog) 1 karey PRN BID PRN TP RASH; Start 10/31/18 at 12:45; Stop 11/23/18 at 19:06; Status DC Hydralazine HCl (Apresoline) 25 mg Q8H PO Last administered on 11/01/18at 14:00 ; Start 11/01/18 at 14:00; Stop 11/01/18 at 17:21; Status DC Divalproex Sodium (Depakote Sprinkles) 125 mg 0900,1700 PO Last administered on 11/05/18at 16:21; Start 11/01/18 at 17:00; Stop 11/05/18 at 16:49; Status DC Hydralazine HCl (Apresoline) 50 mg TID PO Last administered on 11/02/18at 13:33 ; Start 11/01/18 at 21:00; Stop 11/02/18 at 15:47; Status DC Hydralazine HCl (Apresoline) 100 mg TID PO Last administered on 11/23/18at 13:54 ; Start 11/02/18 at 21:00; Stop 11/23/18 at 19:06; Status DC Nifedipine (Procardia Xl) 30 mg BID PO Last administered on 11/03/18at 07:59; Start 11/02/18 at 21:00; Stop 11/03/18 at 12:59; Status DC Mirtazapine (Remeron) 7.5 mg QHS PO Last administered on 11/22/18at 20:20; Start 11/02/18 at 21:00; Stop 11/23/18 at 19:06; Status DC Nifedipine (Procardia Xl) 60 mg BID PO Last administered on 11/23/18at 08:28; Start 11/03/18 at 21:00; Stop 11/23/18 at 19:06; Status DC Vitamin D (Vitamin D3) 50,000 unit WEEKLY PO Last administered on 11/17/18at 09: 44; Start 11/03/18 at 13:00; Stop 11/23/18 at 19:06; Status DC Divalproex Sodium (Depakote Sprinkles) 250 mg 0900,1700 PO Last administered on 11/08/18at 16:37; Start 11/06/18 at 09:00; Stop 11/08/18 at 18:11; Status DC Divalproex Sodium (Depakote Sprinkles) 375 mg 0900,1700 PO Last administered on 11/12/18at 10:00; Start 11/09/18 at 09:00; Stop 11/12/18 at 16:37; Status DC Divalproex Sodium (Depakote Sprinkles) 500 mg 0900,1700 PO Last administered on 11/23/18at 16:59; Start 11/12/18 at 17:00; Stop 11/23/18 at 19:06; Status DC Active Scripts Active Reported Hydralazine Hcl 100 Mg Tablet 100 Mg PO TID Zyprexa Zydis (Olanzapine) 5 Mg Tab.rapdis 2.5 Mg PO PRN Q2HR PRN MDD 10mg Nifedipine Er (Nifedipine) 60 Mg Tablet.er 60 Mg PO BID Remeron (Mirtazapine) 15 Mg Tablet 7.5 Mg PO QHS Depakote Sprinkle (Divalproex Sodium) 125 Mg Cap.sprink 500 Mg PO BID94 D3-50 (Cholecalciferol (Vitamin D3)) 50,000 Unit Capsule 50,000 Unit PO WEEKLY Multiple Vitamin (Multivitamin With Minerals) 1 Each Tablet 1 Each PO DAILY [place] (Menthol) 113 Gm Gel..gram. 1 Applic TP PRN QID PRN Milk Of Magnesia (Magnesium Hydroxide) 2,400 Mg/10 Ml Oral.susp 2,400 Mg PO PRN QHS PRN Maalox Maximum Strength Susp (Mag Hydrox/Al Hydrox/Simeth) 355 Ml Oral.susp 15 Ml PO PRN AFTMEALHC PRN Tylenol (Acetaminophen) 325 Mg Tablet 650 Mg PO PRN Q4HRS PRN Triamcinolone Acetonide 15 Gm Cream..g. 1 Karey TP BID Zoloft (Sertraline Hcl) 100 Mg Tablet 100 Mg PO DAILY Olanzapine 2.5 Mg Tablet 2.5 Mg PO QHS Namenda (Memantine Hcl) 10 Mg Tablet 10 Mg PO BID Melatonin 3 Mg Tablet 9 Mg PO QHS Cozaar (Losartan Potassium) 100 Mg Tablet 100 Mg PO DAILY Glimepiride 1 Mg Tablet 1 Mg PO DAILY08 Docusate Sodium 100 Mg Capsule 100 Mg PO BID Aspirin 81 Mg Tab.chew 81 Mg PO DAILY I have reviewed the current psychotropics carefully including drug interactions. Risk benefit ratio favors no change other than as noted in my dictated progress note. Diagnosis: Problems: (1) Anxiety disorder (2) Impulse control disorder (3) Frontotemporal dementia with behavioral disturbance (4) Hypertensive urgency ALISHA MICHAELS MD Nov 23, 2018 22:27
== END 2018-11-23 18:05 | disposition home or self-care (01) | DRG 57 ==
LOC: GEROPSY 13:00
PROVIDERS: ADMIT Psychiatry & Neurology Psychiatry; ATTEND Psychiatry & Neurology Psychiatry
DX: G31.09 Other frontotemporal neurocognitive disorder (principal); F01.51 Vascular dementia, unspecified severity, with behavioral disturbance; F02.81 Dementia in other diseases classified elsewhere, unspecified severity, with behavioral disturbance; F32.9 Major depressive disorder, single episode, unspecified; I16.0 Hypertensive urgency; F63.9 Impulse disorder, unspecified; F41.9 Anxiety disorder, unspecified; M10.9 Gout, unspecified; E11.9 Type 2 diabetes mellitus without complications; E78.5 Hyperlipidemia, unspecified; I10 Essential (primary) hypertension; Z66 Do not resuscitate; Z79.899 Other long term (current) drug therapy
CPT/HCPCS: 36415; 76770; 80053; 80164; 82947; 85025; 87804